=== PATIENT | male | born 1940 | race Caucasian/White ===

== ENCOUNTER → 2020-04-15 | Day surgery (SDC) | payer MEDICARE ==
[2020-04-14 09:28] VITALS: BMI 31.6
[2020-04-15 10:10] VITALS: BP 157/80; PULSE 60; RESP 16; TEMP 98
--- NOTE | 2020-04-15 12:56 | PCN ---
PROCEDURE NOTE DATE OF DICTATION: 04/15/2020 BRIEF HISTORY: Patient is an 79-year-old white male scheduled for an esophageal manometry as a part of evaluation of dysphagia for the last several years duration. Patient states that he has intermittent dysphagia to solids as well as liquids for several years. While he was in [place], it appears that he underwent esophageal surgery, possibly and esophageal myotomy for esophageal achalasia, but no records are available at the time of this dictation. He recently saw Dr. Hopkins at [facility] and because of the ongoing symptoms with dysphagia, he is scheduled for an esophageal manometry to evaluate further. PROCEDURE PERFORMED: High-resolution esophageal manometry. PREOPERATIVE DIAGNOSIS: Dysphagia to liquids and solids of several years duration, status post esophageal surgery (possible Heller myotomy in [place] 4 years ago) PROCEDURE: After informed consent was obtained from the patient, he was brought into the endoscopy unit and he was placed in a supine position. The esophageal manometry catheter was passed from the external nostril and was gently advanced into the esophagus and into the stomach. The study was performed by Endoscopy nurse, Rocio Armendariz. Study results were interpreted using [place] classification. The patient apparently could not tolerate the study for too long, Only liquid swallows were assessed. By the time he was given viscus swallows, the patient had significant cough and the catheter came out and he did not want the study to be continued and hence it was terminated. The following are the study results, which were interpreted using [place] classification. 1. Lower esophageal sphincter data: A mean IRP 0 mmHg. EGJ phenotype type, type 1. 2. .Lower esophageal body, mean DCI 131 mmHg. Peristaltic contractions 0%. Complete liquid transit for 12 follows 0%. 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 MMODL / IJN: [id number] /
== END ==
LOC: ORWHC2ENDO 09:43
PROVIDERS: ATTEND Internal Medicine Gastroenterology
DX: K22.0 Achalasia of cardia (principal); R13.10 Dysphagia, unspecified
CPT/HCPCS: 91010

== ENCOUNTER → 2023-02-21 | Outpatient (CLI) | payer MEDICARE ==
--- NOTE | 2023-02-22 10:10 | NM ---
EXAMINATION TYPE: NM bone scan whole body DATE OF EXAM: 02/21/2023 COMPARISON: MRI lumbar spine 01/28/2023 CLINICAL INDICATION: Male, 82 years old with history of M47.817 spondylosis; Delayed whole-body scanning was performed following the injection of 24.5 mCi Tc 99m MDP. Images acq uired 3 hours post injection. FINDINGS: No abnormal uptake is identified within the appendicular or axial skeleton to suggest metastatic dise ase. No focal increased rate interest uptake within the left iliac bone. There is increased uptake within the bilateral shoulder, sternoclavicular, bilateral knees, bilateral elbows, bilateral wrists, and sacroiliac joints consistent with degenerative changes. Corresponding increased uptake within the lumbar spine related to degenerative changes. No other photopenic areas or areas of increased activity are identified. Physiologic radiotracer activity is demonstrated in the kidneys and bladder. IMPRESSION: No convincing evidence to suggest metastatic disease.
== END | disposition home or self-care (01) ==
LOC: RADNMMAIN 10:11
PROVIDERS: ATTEND Physical Medicine & Rehabilitation
DX: M47.817 Spondylosis without myelopathy or radiculopathy, lumbosacral region (principal); M48.062 Spinal stenosis, lumbar region with neurogenic claudication; E11.9 Type 2 diabetes mellitus without complications; M16.12 Unilateral primary osteoarthritis, left hip; M41.26 Other idiopathic scoliosis, lumbar region; M43.16 Spondylolisthesis, lumbar region
CPT/HCPCS: 78306; A9503

== ENCOUNTER 2023-08-31 19:56 | Inpatient (IN) | payer MEDICARE ==
[2023-08-31 20:01] LABS: Glucose,Whole Blood 84 mg/dL (70-110)
[2023-08-31 20:12] LABS: Basophils % (A) 0 %; Eosinophils % (A) 0 %; HCT 39.1 % (39.0-53.0); HGB 12.8 gm/dL (13.0-17.5); Lymphocytes # (A) 0.8 k/uL (1.0-4.8); Lymphocytes % (A) 8 %; MCH 28.2 pg (25.0-35.0); MCHC 32.7 g/dL (31.0-37.0); Mean Platelet Volume 8.1; Monocytes # (A) 0.7 k/uL (0-1.0); Monocytes % (A) 7 %; Neutrophils # (A) 8.3 k/uL (1.3-7.7); Neutrophils % (A) 82 %; Platelet Count 223 k/uL (150-450); RBC 4.54 m/uL (4.30-5.90); RDW 14.8 % (11.5-15.5); WBC 10.2 k/uL (3.8-10.6)
--- NOTE | 2023-08-31 20:16 | ED ---
General Adult HPI - General Chief complaint: Altered Mental Status Stated complaint: Unresponsive Time Seen by Provider: 08/31/23 20:01 Source: EMS Mode of arrival: EMS Limitations: altered mental status - History of Present Illness Initial comments: Patient brought to the ED by ambulance for evaluation. Per EMS, the patient's called for an ambulance when she was unable to wake the patient up this evening. Per EMS, the patient's found the patient sitting in his chair at about 1700 today, and she thought he was just asleep at that time. It is unclear at this time when the patient was last seen normal, and the patient's is not currently in the ED to provide this information. Patient reportedly has a history of metastatic cancer per EMS, and he recently had colon resection surgery. Per EMS, the patient's blood glucose was initially in the 40s when it was checked, so the patient was given half an ampule of D50 with improvement of his blood glucose to 112, but no improvement in the patient's clinical condition. EMS is unsure if the patient is on any blood thinners. No other history is available at this time. Code Stroke was activated on patient's arrival to the ED. - Related Data Home Medications Medication Instructions Recorded Confirmed Atorvastatin [Lipitor] 80 mg PO DAILY 04/14/20 08/31/23 Donepezil [Aricept] 10 mg PO HS 04/14/20 08/31/23 INSULIN LISPRO (humaLOG) [humaLOG] 12 units SQ BID-W/MEALS 04/14/20 08/31/23 INSULIN LISPRO (humaLOG) [humaLOG] 16 units SQ AC-LUNCH 04/14/20 08/31/23 Insulin Glargine,Hum.rec.anlog 68 units SQ DAILY 04/14/20 08/31/23 [Toujeo Solostar] Losartan Potassium [Cozaar] 100 mg PO HS 04/14/20 08/31/23 Multivitamins, Thera [Multivitamin 1 tab PO DAILY 04/14/20 08/31/23 (formulary)] Oxybutynin Chloride [oxyBUTYnin 10 mg PO DAILY 04/14/20 08/31/23 chloride ER] Sertraline [Zoloft] 50 mg PO DAILY 04/14/20 08/31/23 amLODIPine BESYLATE 10 mg PO DAILY 04/14/20 08/31/23 Allergies Allergy/AdvReac Type Severity Reaction Status Date / Time No Known Allergies Allergy Verified 08/31/23 21:32 Review of Systems ROS Statement: Those systems with pertinent positive or pertinent negative responses have been documented in the HPI. ROS Other: All systems not noted in ROS Statement are negative. Limitations: ROS unobtainable due to patients medical condition Past Medical History Past Medical History: Cancer, Diabetes Mellitus, GERD/Reflux, Hypertension Additional Past Medical History / Comment(s): heart murmur, prostate cancer with radiation History of Any Multi-Drug Resistant Organisms: None Reported Past Surgical History: Hernia Repair, Joint Replacement, Orthopedic Surgery Additional Past Surgical History / Comment(s): esophageal surgery, lt ankle surgery,lt knee replacement Past Anesthesia/Blood Transfusion Reactions: No Reported Reaction Past Psychological History: Anxiety, Depression Smoking Status: Former smoker Past Alcohol Use History: None Reported Past Drug Use History: None Reported General Exam Limitations: altered mental status General appearance: other (GCS = 7; patient opens eyes spontaneously; patient is nonverbal) Head exam: Present: atraumatic, normocephalic Eye exam: Present: normal appearance, PERRL ENT exam: Present: mucous membranes moist Neck exam: Present: other (Trachea is in midline). Absent: meningismus Respiratory exam: Present: normal lung sounds bilaterally. Absent: respiratory distress, wheezes, rales, rhonchi, stridor Cardiovascular Exam: Present: regular rate, normal rhythm, normal heart sounds, other (Normal radial pulses bilaterally) GI/Abdominal exam: Present: soft, other (Open abdominal surgical wound with packing in place). Absent: distended, guarding Extremities exam: Absent: pedal edema Neurological exam: Present: other (GCS = 7; patient opens eyes spontaneously; patient is nonverbal; right hemiparesis; NIH stroke scale score = 29) Skin exam: Present: warm, dry, normal color Course Vital Signs 08/31/23 08/31/23 08/31/23 19:59 20:11 20:46 Temperature 97.6 F 98.0 F Pulse Rate 72 78 68 Respiratory 12 14 18 Rate Blood Pressure 112/71 104/67 126/73 O2 Sat by Pulse 92 L 93 L 96 Oximetry 08/31/23 08/31/23 08/31/23 21:01 21:16 21:26 Temperature 98.0 F 98.2 F Pulse Rate 82 71 72 Respiratory 18 18 18 Rate Blood Pressure 111/66 99/52 126/73 O2 Sat by Pulse 96 97 95 Oximetry 08/31/23 08/31/23 21:31 21:46 Temperature 98.2 F 98.3 F Pulse Rate 67 67 Respiratory 18 18 Rate Blood Pressure 112/70 107/68 O2 Sat by Pulse 97 97 Oximetry - Reevaluation(s) Reevaluation #1: 08/31/23 20:20 Case, H&P and code stroke activation were discussed with Dr. Mims (neurointesivist). He states that he does not feel that the patient is a tenecteplase candidate, and he recommends medical management even if the patient's imaging studies demonstrate a vascular occlusion. He has no further recommendations at this time. 08/31/23 20:27 Patient's is now in the ED at bedside with the patient. She tells me that she last saw the patient normal at about 3 or 4 PM today, but she is unsure of the exact time. She states that he was complaining of "not feeling well" at that time, which is not abnormal for him since having his colon resection surgery. She states that the patient does have metastatic cancer (she is uncertain of what the primary cancer is), and he is scheduled to see a cancer doctor next week to be evaluated for chemotherapy. She confirms that the patient is full code. 08/31/23 20:46 Patient's blood glucose has dropped to the 40s again. ED RN to give the patient 1 ampoule of D50 at this time. 08/31/23 21:26 Patient's clinical status has now significantly improved. Patient is now verbal and A&O x 3. Patient no longer has right hemiparesis, and he is moving all 4 extremities spontaneously. Patient localizes to pain in all 4 extremities. Patient is able to tell me his name and what month it is. Patient is answering questions appropriately. Patient's states that the patient is now back to his baseline mental status. 08/31/23 22:12 Case, H&P, test results, ED management thus far and my discussion with Dr. Mims as above were discussed with Dr. Rosen. He accepts hospital admission. He agrees with neurology consultation. He has no further recommendations at this time. EKG Findings - EKG Comments: EKG Findings:: ED physician interpretation (interpreted by me): Ventricular paced rhythm, ventricular rate of 75 bpm, QRS duration of 154 ms Medical Decision Making - Medical Decision Making Was pt. sent in by a medical professional or institution (, PA, BLOW DOWN OPERATOR, urgent care, hospital, or residential...) When possible be specific @ -No Did you speak to anyone other than the patient for history (EMS, parent, family, police, friend...)? What history was obtained from this source @ -History was also obtained from EMS, as well as the patient's . Did you review nursing and triage notes (agree or disagree)? Why? @ -I reviewed and agree with nursing and triage notes Were old charts reviewed (outside hosp., previous admission, EMS record, old EKG, old radiological studies, urgent care reports/EKG's, residential records)? Report findings @ -No old charts were reviewed Differential Diagnosis (chest pain, altered mental status, abdominal pain women, abdominal pain men, vaginal bleeding, weakness, fever, dyspnea, syncope, headache, dizziness, GI bleed, back pain, seizure, CVA, palpatations, mental health, musculoskeletal)? @ -Differential Altered Mental Status: Hypoglycemia, DKA, hypercapnia, ETOH, overdose, trauma, intracranial mass/malignancy, HTN encephalopathy, infection, encephalitis, psychosis, intracranial hemorrhage, hepatic encephalopathy, meningitis, CVA, TIA, this is not meant to be an all-inclusive list EKG interpreted by me (3pts min.). @ -As above X-rays interpreted by me (1pt min.). @ -Chest x-ray was reviewed myself and shows no acute cardiopulmonary process. I agree with the radiologist's interpretation as above. CT interpreted by me (1pt min.). @ -Noncontrast head CT and CTA head/neck were reviewed myself and showed no acute intracranial abnormality or vascular occlusion. I agree with the radiologist's interpretations as above. U/S interpreted by me (1pt. min.). @ -None done What testing was considered but not performed or refused? (CT, X-rays, U/S, labs)? Why? @ -None What meds were considered but not given or refused? Why? @ -Tenecteplase was considered, but not given after speaking with the neurointerventionalist, as well as given the patient's resolution of symptoms. Did you discuss the management of the patient with other professionals (professionals i.e. , PA, BLOW DOWN OPERATOR, lab, RT, psych nurse, oncology social work, wellness spa manager, teacher, chief supply chain officer, case assistant)? Give summary @ -As above. Was smoking cessation discussed for >3mins.? @ -No Was critical care preformed (if so, how long)? @ -Yes, for 60 minutes. Were there social determinants of health that impacted care today? How? (Homelessness, low income, unemployed, alcoholism, drug addiction, tra nsportation, low edu. Level, literacy, decrease access to med. care, [facility], rehab)? @ -No Was there de-escalation of care discussed even if they declined (Discuss DNR or withdrawal of care, Hospice)? DNR status @ -No What co-morbidities impacted this encounter? (DM, HTN, Smoking, COPD, CAD, Cancer, CVA, ARF, Chemo, Hep., AIDS, mental health diagnosis, sleep apnea, morbid obesity)? @ -Metastatic malignancy Was patient admitted / discharged? Hospital course, mention meds given and route, prescriptions, significant lab abnormalities, going to OR and other pertinent info. @ -Patient presented to the ED with altered mental status and right hemiparesis. EMS reported hypoglycemia, but they also reported no improvement in the patient's condition after IV D50 was given and the patient's blood g lucose returned to normal. Patient was noted to be hypoglycemic again in the ED, but in the ED, his condition improved after administration of IV D50. Patient's neuroimaging studies are all negative. It is possible that the patient's symptoms may have been secondary to hypoglycemia, but also possible that the patient may have had a TIA or another etiology of his altered mental status/symptoms. Patient's neurological deficits and altered mental status have now resolved, and the patient has returned to his baseline mental status. Will admit the patient to the hospital for continued blood glucose monitoring, symptom monitoring and neurology consultation. Patient has been started on a D5 normal saline IV drip. Patient has also been treated with electrolyte repletion for his hypokalemia and hypomagnesemia. Dr. Rosen has accepted hospital admission. Patient and are aware the patient's test results, and they agree with hospital admission at this time. Undiagnosed new problem with uncertain prognosis? @ -No Drug Therapy requiring intensive monitoring for toxicity (Heparin, Nitro, Insulin, Cardizem)? @ -No Were any procedures done? @ -No Diagnosis/symptom? @ -Hypoglycemia Acute, or Chronic, or Acute on Chronic? @ -Default Uncomplicated (without systemic symptoms) or Complicated (systemic symptoms)? @ -Default Side effects of treatment? @ -No Exacerbation, Progression, or Severe Exacerbation? @ -No Poses a threat to life or bodily function? How? (Chest pain, [place], [place], pneumonia, PE, COPD, DKA, ARF, appy, cholecystitis, CVA, Diverticulitis, Homicidal, Suicidal, threat to staff... and all critical care pts) @ -Yes, possibly. Diagnosis/symptom? @ -Transient altered mental status and right hemiparesis Acute, or Chronic, or Acute on Chronic? @ -Acute Uncomplicated (without systemic symptoms) or Complicated (systemic symptoms)? @ -Default Side effects of treatment? @ -None Exacerbation, Progression, or Severe Exacerbation] @ -No Poses a threat to life or bodily function? @ -No Diagnosis/symptom? @ -Hypokalemia Acute, or Chronic, or Acute on Chronic? @ -Default Uncomplicated (without systemic symptoms) or Complicated (systemic symptoms)? @ -Default Side effects of treatment? @ -None Exacerbation, Progression, or Severe Exacerbation] @ -No Poses a threat to life or bodily function? @ -No Diagnosis/symptom? @ -Hypomagnesemia Acute, or Chronic, or Acute on Chronic? @ -Default Uncomplicated (without systemic symptoms) or Complicated (systemic symptoms)? @ -Default Side effects of treatment? @ -None Exacerbation, Progression, or Severe Exacerbation] @ -No Poses a threat to life or bodily function? @ -No - Lab Data Result diagrams: 08/31/23 20:07 08/31/23 20:07 Lab Results 08/31/23 08/31/23 08/31/23 Range/Units 19:59 20:07 20:07 WBC 10.2 (3.8-10.6) k/uL RBC 4.54 (4.30-5.90) m/uL Hgb 12.8 L (13.0-17.5) gm/dL Hct 39.1 (39.0-53.0) % MCV 86.0 (80.0-100.0) fL MCH 28.2 (25.0-35.0) pg MCHC 32.7 (31.0-37.0) g/dL RDW 14.8 (11.5-15.5) % Plt Count 223 (150-450) k/uL MPV 8.1 Neutrophils % 82 % Lymphocytes % 8 % Monocytes % 7 % Eosinophils % 0 % Basophils % 0 % Neutrophils # 8.3 H (1.3-7.7) k/uL Lymphocytes # 0.8 L (1.0-4.8) k/uL Monocytes # 0.7 (0-1.0) k/uL Eosinophils # 0.0 (0-0.7) k/uL Basophils # 0.0 (0-0.2) k/uL PT 15.9 H (10.0-12.5) sec INR 1.5 H (<1.2) APTT 22.1 (22.0-30.0) sec Sodium (137-145) mmol/L Potassium (3.5-5.1) mmol/L Chloride (98-107) mmol/L Carbon Dioxide (22-30) mmol/L Anion Gap mmol/L BUN (9-20) mg/dL Creatinine (0.66-1.25) mg/dL Est GFR (CKD-EPI)AfAm (>60 ml/min/1.73 sqM) Est GFR (CKD-EPI)NonAf (>60 ml/min/1.73 sqM) Glucose (74-99) mg/dL POC Glucose (mg/dL) 84 (70-110) mg/dL POC Glu Office Supervisor ID Jame, Monica Calcium (8.4-10.2) mg/dL Magnesium (1.6-2.3) mg/dL Total Bilirubin (0.2-1.3) mg/dL AST (17-59) U/L ALT (4-49) U/L Alkaline Phosphatase (38-126) U/L Ammonia (<30) umol/L Creatine Kinase (55-170) U/L Troponin I (0.000-0.034) ng/mL Total Protein (6.3-8.2) g/dL Albumin (3.5-5.0) g/dL Serum Alcohol mg/dL 08/31/23 08/31/2324 Range/Units 20:07 20:07 20:44 WBC (3.8-10.6) k/uL RBC (4.30-5.90) m/uL Hgb (13.0-17.5) gm/dL Hct (39.0-53.0) % MCV (80.0-100.0) fL MCH (25.0-35.0) pg MCHC (31.0-37.0) g/dL RDW (11.5-15.5) % Plt Count (150-450) k/uL MPV Neutrophils % % Lymphocytes % % Monocytes % % Eosinophils % % Basophils % % Neutrophils # (1.3-7.7) k/uL Lymphocytes # (1.0-4.8) k/uL Monocytes # (0-1.0) k/uL Eosinophils # (0-0.7) k/uL Basophils # (0-0.2) k/uL PT (10.0-12.5) sec INR (<1.2) APTT (22.0-30.0) sec Sodium 139 (137-145) mmol/L Potassium 2.3 L* (3.5-5.1) mmol/L Chloride 109 H (98-107) mmol/L Carbon Dioxide 22 (22-30) mmol/L Anion Gap 8 mmol/L BUN 17 (9-20) mg/dL Creatinine 0.71 (0.66-1.25) mg/dL Est GFR (CKD-EPI)AfAm >90 (>60 ml/min/1.73 sqM) Est GFR (CKD-EPI)NonAf 87 (>60 ml/min/1.73 sqM) Glucose 93 (74-99) mg/dL POC Glucose (mg/dL) 42 L (70-110) mg/dL POC Glu Office Supervisor ID Jame, Monica Calcium 8.7 (8.4-10.2) mg/dL Magnesium (1.6-2.3) mg/dL Total Bilirubin 0.6 (0.2-1.3) mg/dL AST 20 (17-59) U/L ALT 14 (4-49) U/L Alkaline Phosphatase 128 H (38-126) U/L Ammonia (<30) umol/L Creatine Kinase 29 L (55-170) U/L Troponin I 0.034 (0.000-0.034) ng/mL Total Protein 6.1 L (6.3-8.2) g/dL Albumin 2.8 L (3.5-5.0) g/dL Serum Alcohol <10 mg/dL 08/31/23 08/31/23 08/31/23 Range/Units 20:57 21:11 21:23 WBC (3.8-10.6) k/uL RBC (4.30-5.90) m/uL Hgb (13.0-17.5) gm/dL Hct (39.0-53.0) % MCV (80.0-100.0) fL MCH (25.0-35.0) pg MCHC (31.0-37.0) g/dL RDW (11.5-15.5) % Plt Count (150-450) k/uL MPV Neutrophils % % Lymphocytes % % Monocytes % % Eosinophils % % Basophils % % Neutrophils # (1.3-7.7) k/uL Lymphocytes # (1.0-4.8) k/uL Monocytes # (0-1.0) k/uL Eosinophils # (0-0.7) k/uL Basophils # (0-0.2) k/uL PT (10.0-12.5) sec INR (<1.2) APTT (22.0-30.0) sec Sodium (137-145) mmol/L Potassium (3.5-5.1) mmol/L Chloride (98-107) mmol/L Carbon Dioxide (22-30) mmol/L Anion Gap mmol/L BUN (9-20) mg/dL Creatinine (0.66-1.25) mg/dL Est GFR (CKD-EPI)AfAm (>60 ml/min/1.73 sqM) Est GFR (CKD-EPI)NonAf (>60 ml/min/1.73 sqM) Glucose (74-99) mg/dL POC Glucose (mg/dL) 129 H (70-110) mg/dL POC Glu Office Supervisor ID Jame, Monica Calcium (8.4-10.2) mg/dL Magnesium 1.3 L (1.6-2.3) mg/dL Total Bilirubin (0.2-1.3) mg/dL AST (17-59) U/L ALT (4-49) U/L Alkaline Phosphatase (38-126) U/L Ammonia <9 (<30) umol/L Creatine Kinase (55-170) U/L Troponin I (0.000-0.034) ng/mL Total Protein (6.3-8.2) g/dL Albumin (3.5-5.0) g/dL Serum Alcohol mg/dL 08/31/23 08/31/23 Range/Units 22:11 22:12 WBC (3.8-10.6) k/uL RBC (4.30-5.90) m/uL Hgb (13.0-17.5) gm/dL Hct (39.0-53.0) % MCV (80.0-100.0) fL MCH (25.0-35.0) pg MCHC (31.0-37.0) g/dL RDW (11.5-15.5) % Plt Count (150-450) k/uL MPV Neutrophils % % Lymphocytes % % Monocytes % % Eosinophils % % Basophils % % Neutrophils # (1.3-7.7) k/uL Lymphocytes # (1.0-4.8) k/uL Monocytes # (0-1.0) k/uL Eosinophils # (0-0.7) k/uL Basophils # (0-0.2) k/uL PT (10.0-12.5) sec INR (<1.2) APTT (22.0-30.0) sec Sodium (137-145) mmol/L Potassium (3.5-5.1) mmol/L Chloride (98-107) mmol/L Carbon Dioxide (22-30) mmol/L Anion Gap mmol/L BUN (9-20) mg/dL Creatinine (0.66-1.25) mg/dL Est GFR (CKD-EPI)AfAm (>60 ml/min/1.73 sqM) Est GFR (CKD-EPI)NonAf (>60 ml/min/1.73 sqM) Glucose (74-99) mg/dL POC Glucose (mg/dL) 125 H 103 (70-110) mg/dL POC Glu Office Supervisor ID Jame, Monica Jame, Monica Calcium (8.4-10.2) mg/dL Magnesium (1.6-2.3) mg/dL Total Bilirubin (0.2-1.3) mg/dL AST (17-59) U/L ALT (4-49) U/L Alkaline Phosphatase (38-126) U/L Ammonia (<30) umol/L Creatine Kinase (55-170) U/L Troponin I (0.000-0.034) ng/mL Total Protein (6.3-8.2) g/dL Albumin (3.5-5.0) g/dL Serum Alcohol mg/dL - Radiology Data Noncontrast head CT: 1. No evidence of acute intracranial hemorrhage. 2. No CT evidence of acute territorial infarct. 3. Moderate atrophy and chronic microvascular ischemic changes. CTA neck: 1. No dissection, hemodynamically significant stenosis, or pseudoaneurysm detected in the carotid or vertebral arteries in the neck. 2. Mild atherosclerotic calcifications at the carotid bifurcations. 3. Moderate atherosclerotic calcification along the aortic arch without evidence of dissection. Partially seen ascending aorta appears dilated up to 4.1 cm. CTA head: 1. No intracranial large vessel occlusion, significant stenosis, or sizable aneurysm detected in the limits of the CTA. 2. Mild atherosclerotic disease. Chest x-ray: Left chest dual-lead pacemaker redemonstrated, the main unit appears slightly rotated compared to its previous position however the lead tips do not appear significantly changed in position. Otherwise similar exam findings, without evidence of acute cardiopulmonary disease. Critical Care Time Critical Care Time: Yes Total Critical Care Time: 60 Disposition Clinical Impression: Altered mental status, Hypokalemia, Hypoglycemia, Hypomagnesemia Disposition: ADMITTED IP TO THIS [facility] Condition: Stable Is patient prescribed a controlled substance at d/c from ED?: No Referrals: Bonnie Barraza MD [Primary Care Provider] - 1-2 days Time of Disposition: 22:12
[2023-08-31 20:22] LABS: ALT 14 U/L (4-49); AST 20 U/L (17-59); African American GFR (CKD) >90 (>60 ml/min/1.73 sqM); Albumin 2.8 g/dL (3.5-5.0); Alcohol <10 mg/dL; Alkaline Phosphatase 128 U/L (38-126); Anion Gap 8 mmol/L; Blood Urea Nitrogen 17 mg/dL (9-20); Calcium 8.7 mg/dL (8.4-10.2); Carbon Dioxide 22 mmol/L (22-30); Chloride 109 mmol/L (98-107); Creatine Kinase 29 U/L (55-170); Glucose 93 mg/dL (74-99); Non-African American GFR(CKD) 87 (>60 ml/min/1.73 sqM); Sodium 139 mmol/L (137-145); Total Bilirubin 0.6 mg/dL (0.2-1.3); Total Protein 6.1 g/dL (6.3-8.2)
[2023-08-31 20:25] LABS: Potassium 2.3 mmol/L (3.5-5.1)
[2023-08-31 20:28] LABS: INR 1.5 (<1.2); Partial Thromboplastin Time 22.1 sec (22.0-30.0); Prothrombin Time 15.9 sec (10.0-12.5)
--- NOTE | 2023-08-31 20:43 | CT ---
EXAMINATION TYPE: CODE STROKE: CT brain wo contr CT DLP: 1292.6 mGycm, Automated exposure control for dose reduction was used. DATE OF EXAM: 08/31/2023 8:27 PM COMPARISON: None. CLINICAL INDICATION:Male, 82 years old with history of Neuro deficit, acute, stroke suspected, Neuro deficit, acute, stroke suspected. TECHNIQUE: Brain: Axial CT images of the brain were obtained with coronal and sagittal reformats created and rev iewed. Contrast used: None. Oral contrast used: None. FINDINGS: Slight limitation by motion. Extra-axial spaces: No abnormal extra-axial fluid collections. Ventricular system: Ventricles appear dilated in proportion to the degree of cerebral atrophy. Cerebral parenchyma: No increased attenuation to suggest acute intraparenchymal hemorrhage. The gra y-white matter interface appears maintained, without evidence to suggest acute territorial infarct. Moderate generalized brain atrophy. Scattered hypoattenuating areas are seen within the cerebral whi te matter, nonspecific but most often seen with chronic microvascular ischemic changes; moderate in d egree. Cerebellum: No acute abnormality. Mass effect: No evidence of mass effect or midline shift. Intracranial vasculature: Atherosclerotic calcifications of the larger arteries near the skull base. Soft tissues: No acute or concerning abnormality. Visualized orbits: Orbital contents appear grossly intact. Calvarium/osseous structures: No evidence of calvarial fracture. Paranasal sinuses and mastoid air cells: Appear clear. MRI is more sensitive for detecting acute processes such as infarct, and may be considered if clinica lly warranted. IMPRESSION: 1. No evidence of acute intracranial hemorrhage. 2. No CT evidence of acute territorial infarct. 3. Moderate atrophy and chronic microvascular ischemic changes.
[2023-08-31] MEDS: POTASSIUM CHLORIDE 40 MEQ in WATER FOR INJECTION 1 100ML.BAG IVPB STA (20:44)
[2023-08-31] MEDS: DEXTROSE 50% SYRINGE 50 ML IVP STA (20:48)
[2023-08-31 20:50] LABS: Glucose,Whole Blood 42 mg/dL (70-110)
[2023-08-31] MEDS: DEXTROSE 5%-0.9% NACL 1,000 ML IV SCH (21:18)
[2023-08-31 21:25] LABS: Glucose,Whole Blood 129 mg/dL (70-110)
--- NOTE | 2023-08-31 21:38 | CT ---
EXAMINATION TYPE: CT angio head neck DATE OF EXAM: 08/31/2023 8:50 PM COMPARISON: Same day noncontrast head CT. CLINICAL INDICATION:Male, 82 years old with history of Neuro deficit, acute, stroke suspected; PHH, C ode stroke TECHNIQUE: Axially acquired helical CT angiogram of the head and neck was obtained with contrast. Axi al images are supplemented with 3D reconstructions [facility] NASCET criteria used. Contrast used: 65ml mL of Isovue 370 with IV Contrast, Oral contrast used: None. CT DLP: 659 mGycm, Automated exposure control for dose reduction was used. FINDINGS: CTA Neck: A three-vessel arch is shown. Visualized ascending aorta appears dilated up to 4.1 cm. Moderate ather osclerotic calcifications along the arch and proximal branch vessels without significant stenosis see n. Proximal branch vessels are tortuous. The visualized descending aorta is tortuous with maximum est imated diameter 3.6 cm. No dissection flap is seen. Right carotid system: The common carotid is patent. Mostly calcified plaque at the bifurcation with n o hemodynamically significant stenosis seen. ECA and ICA are patent. No evidence of dissection. Left carotid system: The common carotid is patent. Mostly calcified plaque at the bifurcation and pro ximal ICA with no hemodynamically significant stenosis seen. ECA and ICA are patent. No evidence of d issection. Vertebral arteries: There is mild atherosclerotic plaque at the origins of the vertebral arteries wit hout significant stenosis seen. The vertebrals are then otherwise patent to the skull base. The vertebral arteries are codominant. Other: Visualized neck soft tissues show no acute concerning abnormality. Cervical spine shows mild/m oderate degenerative changes without evidence of acute pathology. Imaged portions of the upper chest shows no acute infiltrate or pneumothorax in the lung apices. Visualized trachea and left main bronch us appear patent. Partially seen on the right is soft tissue density which may be debris within the b ronchus intermedius. Mild bronchial wall thickening can be seen with bronchitis. Left chest dual-lead pacemaker device with the lead tips beyond the field of view. CTA Head: There are some calcifications of the cavernous portions of the ICAs without significant stenosis. Supraclinoid ICAs, bifurcations, ACAs, MCAs appear patent. Anterior communicating artery is not defin itely seen. Intracranial vessels are slightly irregular likely reflecting mild atherosclerotic diseas e. The intracranial vertebral arteries enhance normally. Small calcification in the right V4 segment wit hout significant stenosis. Basilar artery is patent and unremarkable. Normal basilar bifurcation with out evidence of aneurysm. Visualized proximal ice cream server are patent. A right posterior communicating artery is not definitely seen. A left posterior communicating artery is not definitely seen. No intracranial large vessel occlusion, hemodynamically significant stenosis, aneurysm, dissection, o r arteriovenous malformation is shown. The dural venous sinuses appear grossly patent without evidence of thrombosis. Other: Please refer to same-day CT head report for further description of findings. IMPRESSION: CTA neck: 1. No dissection, hemodynamically significant stenosis, or pseudoaneurysm detected in the carotid or vertebral arteries in the neck. 2. Mild atherosclerotic calcifications at the carotid bifurcations. 3. Moderate atherosclerotic calcification along the aortic arch without evidence of dissection. Part ially seen ascending aorta appears dilated up to 4.1 cm. CTA head: 1. No intracranial large vessel occlusion, significant stenosis, or sizable aneurysm detected in the limits of CTA. 2. Mild atherosclerotic disease.
[2023-08-31] MEDS: MAGNESIUM SULFATE-D5W PMX 1 GM in DEXTROSE/WATER 1 100ML.BAG IVPB ONE (21:46)
--- NOTE | 2023-08-31 22:03 | XR ---
EXAM: XR chest 1V portable CLINICAL INDICATION:Male, 82 years old with history of altered mental status; [facility] COMPARISON: 04/12/2023 TECHNIQUE: Chest single view. FINDINGS: Lines/tubes/devices: Left chest dual-lead pacemaker redemonstrated, the main unit appears slightly ro tated counterclockwise from its previous position however the lead tips do not appear significantly c hanged in position, terminating over the RA and RV. EKG leads overlie the chest. Cardiomediastinum: CM silhouette is stable. Heart appears mildly enlarged. Tortuosity, ectasia and calcification of the aorta. Vasculature: No increased pulmonary vasculature. Lungs/pleura: Mildly coarsened interstitial lung markings again seen, likely chronic changes. No airspace consolida tion, significant pleural effusion, or pneumothorax is seen. Trace left pleural effusion versus chron ic change, similar to before. Bones/soft tissues: Bony thorax appears grossly intact as seen. Degenerative changes of the spine and shoulders. IMPRESSION: * Left chest dual-lead pacemaker redemonstrated, the main unit appears slightly rotated compared to its previous position however the lead tips do not appear significantly changed in position. * Otherwise similar exam findings, without evidence of acute cardiopulmonary disease.
[2023-08-31] MEDS: ASPIRIN 81 MG PO STA (22:08)
[2023-08-31 22:14] LABS: Glucose,Whole Blood 125 mg/dL (70-110)
[2023-08-31 22:14] LABS: Glucose,Whole Blood 103 mg/dL (70-110)
[2023-09-01] LABS: Glucose,Whole Blood 119 mg/dL (70-110)
[2023-09-01] MEDS: POTASSIUM CHLORIDE ER 20 MEQ TAB.ER PO STA (01:17)
--- NOTE | 2023-09-01 01:34 | P.HPIM ---
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 The history is supplemented by the patient's and daughter at the bedside. The notes the patient had said he felt somewhat not well and went to take a nap at around 3:30 PM earlier today. When she attempted to wake him at around 5 PM, he was unresponsive, at which time she activated EMS. Upon arrival, EMS found the patient to be hypoglycemic with blood glucose around in the 40s. He was given half an ampule of D50 with subsequent blood glucose 112 without significant improvement in his mental status. Upon arrival to the ED, code stroke was activated due to significant right-sided hemiparesis. Brain imaging including CT head and neck angiogram and CT brain were unremarkable. The patient's mentation and weakness gradually improved, although the and daughter report that he is still not fully at his baseline at the time of interview. He was somewhat sleepy but oriented x 4 during my evaluation. He reports feeling somewhat fatigued but had no specific complaints. He denied experiencing weakness, numbness, tingling, visual disturbances, or headache. Denies chest pain, shortness of breath, nausea, vomiting. As per the family, the patient has had a significantly reduced oral intake ever since his surgery in [place], but continues to take the same dose of insulin as prior. He also seldom checks his blood sugar. Of note, the patient is scheduled to see Dr. Childress, pending biopsy results from [place]. He is following with wound care clinic at [facility] for an abdominal midline wound VAC. EKG revealed V paced rhythm at 75 bpm in the emergency room. Laboratory evaluation was remarkable for potassium of 2.3, magnesium 1.3, alk phos 128, and albumin 2.8 with serum alcohol less than 10. ED documentation reviewed and case discussed with ED provider. Review of systems: Pertinent positives and negatives as discussed in HPI, a complete review of systems was performed and all other systems are negative. Physical examination: Vital signs reviewed General: non toxic, no distress, appears at stated age, normal weight Derm: no unusual rashes/lesions, warm Head: atraumatic, normocephalic, symmetric Eyes: EOMI, no lid lag, anicteric sclera, pupils equal round reactive to light ENT: Nose and ears atraumatic Neck: No cervical lymphadenopathy, trachea midline, supple Mouth: no lip lesion, mucus membranes moist Cardiovascular: S1S2 reg, no murmur, positive dorsalis pedis pulse bilateral, no edema Lungs: CTA bilateral, no rhonchi, no rales, no accessory muscle use Abdominal: soft, nontender to palpation, no guarding, midline wound VAC in place without surrounding tenderness or erythema Ext: muscle strength 5 out of 5 in all 4 extremities grossly, no gross muscle atrophy, no contractures, Neuro: CN II-XI grossly intact, no gross focal neuro deficits Psych: Somewhat sleepy, oriented to person, place, time, appropriate affect Assessment: Altered mental status, likely due to hypoglycemia in setting of poor oral intake Right-sided hemiparesis, unable to rule out TIA Hypokalemia and hypomagnesemia Chronic conditions: Type II DM, hypertension, hyperlipidemia Imaging: CT angiogram head and neck and CT brain were unremarkable. EKG revealed V paced rhythm at 75 bpm as reviewed by me. Data Review: Laboratory evaluation was remarkable for potassium of 2.3, magnesium 1.3, alk phos 128, and albumin 2.8 with serum alcohol less than 10. Plan: Hold off on home insulin therapy at this time Continue with D5 NS at 75 mL/h Neurology consulted Neurochecks Replace magnesium and potassium and monitor for resolution Continue with remaining home medications DVT prophylaxis: Lovenox subcu The patient is admitted with an anticipated greater than 2 midnight stay for evaluation of altered mental status CODE STATUS: Full Code Discussed with: Patient, , daughter Anticipated discharge place: Home Past Medical History Past Medical History: Cancer, Diabetes Mellitus, GERD/Reflux, Hypertension Additional Past Medical History / Comment(s): heart murmur, prostate cancer with radiation History of Any Multi-Drug Resistant Organisms: None Reported Past Surgical History: Hernia Repair, Joint Replacement, Orthopedic Surgery Additional Past Surgical History / Comment(s): esophageal surgery, lt ankle surgery,lt knee replacement Past Anesthesia/Blood Transfusion Reactions: No Reported Reaction Past Psychological History: Anxiety, Depression Smoking Status: Former smoker Past Alcohol Use History: None Reported Additional Past Alcohol Use History / Comment(s): smoker for 20 years 1-2 ppd quit 1979 Past Drug Use History: None Reported - Past Family History Mother Family Medical History: Hypertension Medications and Allergies Home Medications Medication Instructions Recorded Confirmed Type Atorvastatin [Lipitor] 80 mg PO DAILY 04/14/20 08/31/23 History Donepezil [Aricept] 10 mg PO HS 04/14/20 08/31/23 History INSULIN LISPRO (humaLOG) [humaLOG] 12 units SQ BID-W/MEALS 04/14/20 08/31/23 History INSULIN LISPRO (humaLOG) [humaLOG] 16 units SQ AC-LUNCH 04/14/20 08/31/23 History Insulin Glargine,Hum.rec.anlog 68 units SQ DAILY 04/14/20 08/31/23 History [Toujeo Solostar] Losartan Potassium [Cozaar] 100 mg PO HS 04/14/20 08/31/23 History Multivitamins, Thera [Multivitamin 1 tab PO DAILY 04/14/20 08/31/23 History (formulary)] Oxybutynin Chloride [oxyBUTYnin 10 mg PO DAILY 04/14/20 08/31/23 History chloride ER] Sertraline [Zoloft] 50 mg PO DAILY 04/14/20 08/31/23 History amLODIPine BESYLATE 10 mg PO DAILY 04/14/20 08/31/23 History Allergies Allergy/AdvReac Type Severity Reaction Status Date / Time No Known Allergies Allergy Verified 08/31/23 21:32 Physical Exam Vitals: Vital Signs Temp Pulse Pulse Resp BP BP Pulse Ox 08/31/23 23:52 62 18 130/69 99 08/31/23 22:16 98.3 F 65 18 129/76 97 08/31/23 21:46 98.3 F 67 18 107/68 97 08/31/23 21:31 98.2 F 67 18 112/70 97 08/31/23 21:26 72 18 126/73 95 08/31/23 21:16 98.2 F 71 18 99/52 97 08/31/23 21:01 98.0 F 82 18 111/66 96 08/31/23 20:46 98.0 F 68 18 126/73 96 08/31/23 20:11 78 14 104/67 93 L 08/31/23 19:59 97.6 F 72 12 112/71 92 L Intake and Output 08/31/23 08/31/23 09/01/23 14:59 22:59 06:59 Other: Weight 84.867 kg 84.867 kg Results CBC & Chem 7: 08/31/23 20:07 08/31/23 20:07 Labs: Abnormal Lab Results - Last 24 Hours (Table) 08/31/23 08/31/23 08/31/23 Range/Units 20:07 20:07 20:07 Hgb 12.8 L (13.0-17.5) gm/dL Neutrophils # 8.3 H (1.3-7.7) k/uL Lymphocytes # 0.8 L (1.0-4.8) k/uL PT 15.9 H (10.0-12.5) sec INR 1.5 H (<1.2) Potassium 2.3 L* (3.5-5.1) mmol/L Chloride 109 H (98-107) mmol/L POC Glucose (mg/dL) (70-110) mg/dL Magnesium (1.6-2.3) mg/dL Alkaline Phosphatase 128 H (38-126) U/L Creatine Kinase 29 L (55-170) U/L Total Protein 6.1 L (6.3-8.2) g/dL Albumin 2.8 L (3.5-5.0) g/dL 08/31/23 08/31/23 08/31/23 Range/Units 20:44 20:57 21:23 Hgb (13.0-17.5) gm/dL Neutrophils # (1.3-7.7) k/uL Lymphocytes # (1.0-4.8) k/uL PT (10.0-12.5) sec INR (<1.2) Potassium (3.5-5.1) mmol/L Chloride (98-107) mmol/L POC Glucose (mg/dL) 42 L 129 H (70-110) mg/dL Magnesium 1.3 L (1.6-2.3) mg/dL Alkaline Phosphatase (38-126) U/L Creatine Kinase (55-170) U/L Total Protein (6.3-8.2) g/dL Albumin (3.5-5.0) g/dL 08/31/23 08/31/23 Range/Units 22:11 23:59 Hgb (13.0-17.5) gm/dL Neutrophils # (1.3-7.7) k/uL Lymphocytes # (1.0-4.8) k/uL PT (10.0-12.5) sec INR (<1.2) Potassium (3.5-5.1) mmol/L Chloride (98-107) mmol/L POC Glucose (mg/dL) 125 H 119 H (70-110) mg/dL Magnesium (1.6-2.3) mg/dL Alkaline Phosphatase (38-126) U/L Creatine Kinase (55-170) U/L Total Protein (6.3-8.2) g/dL Albumin (3.5-5.0) g/dL Thrombosis Risk Factor Assmnt - Choose All That Apply Each Risk Factor Represents 3 Points: Age 75 years or older Thrombosis Risk Factor Assessment Total Risk Factor Score: 3 Thrombosis Risk Factor Assessment Level: Moderate Risk
[2023-09-01] MEDS: MAGNESIUM SULFATE-D5W PMX 1 GM in DEXTROSE/WATER 1 100ML.BAG IVPB ONE (01:54)
[2023-09-01] MEDS: DEXTROSE 50% SYRINGE 50 ML IVP STA ×2 (01:55→10:22)
[2023-09-01 06:16] LABS: Glucose,Whole Blood 111 mg/dL (70-110)
[2023-09-01 06:51] LABS: Appearance,Urine Clear (Clear); Bilirubin,Urine Negative (Negative); Blood,Urine Negative (Negative); Color,Urine Light Yellow; Glucose,Urine (UA) Negative (Negative); Ketones,Urine Negative (Negative); Leukocyte Esterase,Urine Negative (Negative); Nitrite,Urine Negative (Negative); PH, Urine 5.5 (5.0-8.0); Protein,Urine Negative (Negative); Urobilinogen,Urine <2.0 mg/dL (<2.0)
[2023-09-01 07:32] LABS: Amphetamine Screen,Urine Not Detected (NotDetected); Barbiturate Screen,Urine Not Detected (NotDetected); Benzodiazepines Screen,Urine Not Detected (NotDetected); Cocaine Screen,Urine Not Detected (NotDetected); Methadone Screen, Urine Not Detected (NotDetected); Opiate Screen,Urine Not Detected (NotDetected); Oxycodone Screen, Urine Not Detected (NotDetected); Phencyclidine Screen,Urine Not Detected (NotDetected); Tricyclic Antidepressant,Urine Not Detected (NotDetected); Urn Cannabinoid Scrn Not Detected (NotDetected)
[2023-09-01 07:59] LABS: Glucose,Whole Blood 76 mg/dL (70-110)
[2023-09-01 09:58] LABS: Glucose,Whole Blood 43 mg/dL (70-110)
[2023-09-01] MEDS: amLODIPine 10 MG TAB PO SCH (10:14)
[2023-09-01] MEDS: ATORVASTATIN 80 MG TAB PO SCH (10:15)
[2023-09-01] MEDS: OXYBUTYNIN 10 MG TAB.ER.24 PO SCH (10:15)
[2023-09-01] MEDS: SERTRALINE 50 MG TAB PO SCH (10:15)
[2023-09-01] MEDS: MULTIVITAMINS, THERA 1 EACH TAB PO SCH (10:15)
[2023-09-01 10:16] LABS: Glucose,Whole Blood 43 mg/dL (70-110)
[2023-09-01 10:41] LABS: Glucose,Whole Blood 105 mg/dL (70-110)
[2023-09-01 11:49] LABS: Glucose,Whole Blood 99 mg/dL (70-110)
[2023-09-01] MEDS ORDERED: DEXTROSE 50% SYRINGE 50 ML IVP PRN ×2 (11:57)
--- NOTE | 2023-09-01 12:18 | P.CNNES ---
History of Present Illness Consult date: 09/01/23 Requesting physician: Dev Vázquez Reason for Consult: transient altered mental status and right hemiparesis History of Present Illness: Patient is a 82-year-old left-handed male with history of hypertension, diabetes, hyperlipidemia, ex tobacco use, came to the hospital by ambulance yesterday at 7:56 PM for episode of unresponsiveness and hypoglycemia. Patient states that his sickness started in early part of July 2023, when he was hospitalized in [place], for acute abdominal pain, for which he underwent lap arotomy on 08/05/2023. Patient was found to have previous hernia, that had a mesh around it and it went around the small bowel and "rotten it". 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 They are not sure if patient has a separate colon cancer as well. Patient was transported by Road service from [place] and he arrived in [place] at his home last 08/24/2023. He was doing well until he had an episode of unresponsiveness as mentioned below in detail. As per EMS flowsheet, when they arrived for an unresponsive person. On arrival patient is sitting in the recliner with feet elevated, leaning to the right. Patient was unconscious and unresponsive with respiration rate of 12. Her lungs were clear. No respiratory distress noted. Patient's states that she saw patient in the chair at 5 PM, states she thought he was sleeping. At approximately 7 PM she was unable to wake him up. Initial Accu-Chek was 44 mg/dL. Patient was given 12.5 g of dextrose 50% IV push. Patient's denied patient having any complaints earlier in the morning. Denies recent illness. Patient has a wound VAC attached to abdomen surgical site. Patient has history of pancreatic cancer. Patient was still unresponsive to any stimuli and recheck of blood glucose was 112. EKG showed demand pacing rhythm. Patient's room air oxygen saturation 91%. Patient placed on nonrebreather mask. Recheck blood glucose was 62. Patient was given an additional 12.5 g of dextrose 50%. Shortly after patient started moving his left arm and leg. Patient's eyes were open and looking to the right. Patient was following some commands. Patient was not moving the right arm or leg. Patient only looking to the right. Repeat blood glucose was 244. Patient's blood pressure was 151/93, pulse rate 76. Blood test shows normal CBC, INR 1.5 PTT is normal. Sodium is normal potassium 2.3. Hepatic panel is normal, renal functions normal. Troponin negative. Blood alcohol level negative. UA and urine drug screen negative. EKG shows electronic ventricular pacemaker. CT head revealed no evidence of acute intracranial hemorrhage. No CT evidence of acute territorial infarct. Moderate atrophy and chronic microvascular ischemic changes. Chest x-ray revealed left chest dual lead pacemaker. Patient has history of diabetes for 40 years, hypertension, hyperlipidemia. He smoked 1 to 2 pack/day for 20 years, quit in 1979. Patient denies any alcohol or drugs. 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 No previous history of strokes or TIA. Patient has history of prostate cancer, currently in remission. Patient used to walk without any assistive device, although he has been using walker since his abdominal surgery in July 2023. Patient's home medications include Lipitor 80 mg, donepezil 10 mg, insulin, amlodipine, losartan, multivitamins, oxybutynin and sertraline 50 mg. Patient does not take any antiplatelet medication at home. Review of Systems Constitutional: Reports chills, Reports weight loss (15-20 lbs), Denies fever Eyes: denies blurred vision, denies diplopia, denies pain, denies loss of vision Ears: deny: decreased hearing, ear discharge Ears, nose, mouth and throat: Denies headache, Denies sore throat, Denies vertigo Cardiovascular: Denies chest pain, Denies shortness of breath Respiratory: Denies cough, Denies excessive sputum Gastrointestinal: Reports diarrhea, Denies abdominal pain, Denies nausea, Denies vomiting Genitourinary: Denies incontinence, Denies urinary frequency Musculoskeletal: Denies low back pain, Denies neck pain Integumentary: Denies pruritus, Denies rash Neurological: Reports as per HPI Psychiatric: Reports depression, Denies anxiety Endocrine: Reports weight change, Denies fatigue Hematologic/Lymphatic: Denies easy bleeding, Denies easy bruising Past Medical History Past Medical History: Cancer, Diabetes Mellitus, GERD/Reflux, Hypertension Additional Past Medical History / Comment(s): heart murmur, prostate cancer with radiation History of Any Multi-Drug Resistant Organisms: None Reported Past Surgical History: Hernia Repair, Joint Replacement, Orthopedic Surgery Additional Past Surgical History / Comment(s): esophageal surgery, lt ankle surgery,lt knee replacement Past Anesthesia/Blood Transfusion Reactions: No Reported Reaction Past Psychological History: Anxiety, Depression Smoking Status: Former smoker Past Alcohol Use History: None Reported Additional Past Alcohol Use History / Comment(s): smoker for 20 years 1-2 ppd qu it 1979 Past Drug Use History: None Reported - Past Family History Mother Family Medical History: Hypertension Medications and Allergies Home Medications Medication Instructions Recorded Confirmed Type Atorvastatin [Lipitor] 80 mg PO DAILY 04/14/20 08/31/23 History Donepezil [Aricept] 10 mg PO HS 04/14/20 08/31/23 History INSULIN LISPRO (humaLOG) [humaLOG] 12 units SQ BID-W/MEALS 04/14/20 08/31/23 History INSULIN LISPRO (humaLOG) [humaLOG] 16 units SQ AC-LUNCH 04/14/20 08/31/23 History Insulin Glargine,Hum.rec.anlog 68 units SQ DAILY 04/14/20 08/31/23 History [Toujeo Solostar] Losartan Potassium [Cozaar] 100 mg PO HS 04/14/20 08/31/23 History Multivitamins, Thera [Multivitamin 1 tab PO DAILY 04/14/20 08/31/23 History (formulary)] Oxybutynin Chloride [oxyBUTYnin 10 mg PO DAILY 04/14/20 08/31/23 History chloride ER] Sertraline [Zoloft] 50 mg PO DAILY 04/14/20 08/31/23 History amLODIPine BESYLATE 10 mg PO DAILY 04/14/20 08/31/23 History Allergies Allergy/AdvReac Type Severity Reaction Status Date / Time No Known Allergies Allergy Verified 08/31/23 21:32 Physical Examination - Vital Signs Vital Signs: Vital Signs Temp Pulse Pulse Resp BP BP Pulse Ox 09/01/23 09:43 96 09/01/23 08:00 98 F 69 18 138/72 97 09/01/23 03:29 98.3 F 65 18 153/84 99 08/31/23 23:52 96.3 F L 62 18 130/69 99 08/31/23 22:16 98.3 F 65 18 129/76 97 08/31/23 21:46 98.3 F 67 18 107/68 97 08/31/23 21:31 98.2 F 67 18 112/70 97 08/31/23 21:26 72 18 126/73 95 08/31/23 21:16 98.2 F 71 18 99/52 97 08/31/23 21:01 98.0 F 82 18 111/66 96 08/31/23 20:46 98.0 F 68 18 126/73 96 08/31/23 20:11 78 14 104/67 93 L 08/31/23 19:59 97.6 F 72 12 112/71 92 L Intake and Output 08/31/23 09/01/23 09/01/23 22:59 06:59 14:59 Intake Total 120 Output Total 300 Balance -300 120 Intake: Oral 120 Output: Urine 300 Other: Voiding Method External Catheter Weight 84.867 kg 84.867 kg Patient is an elderly male, very pleasant, in no acute distress. Patient is alert awake oriented to time place and person. Speech and language functions are normal. Patient can name and repeat very well. No aphasia or dysarthria. Attention, concentration and fund of knowledge is adequate. On cranial nerve examination, pupils are equal, round and reacting to light, visual barrow are full on confrontation, with no neglect on double simultaneous stimulation. Extraocular muscles are intact with no nystagmus. Face is symmetric, tongue protrudes to the midline. Palatal elevation and sensation normal, hearing and shoulder shrug normal, facial sensation normal. On muscle strength testing, there is no pronator drift and the strength is mary l in arms and legs distally and proximally. Deep tendon reflexes are symmetric 2 at the biceps, 1 brachioradialis, 2 at the right knee, had surgical scar on the left knee. Absent ankles and plantars are flat. Patient has hammertoes and high arched feet. Sensory to touch is equal with no neglect on double simultaneous stimulation. Cerebellar function showed no ataxia for suxtin-rn-owpc testing. No dysdiadochokinesia. Tone and bulk of muscles normal. Gait deferred.. On general examination, there is no carotid bruit or murmur, S1-S2 audible. Chest is clear on consultation. Abdomen is soft nontender. No organomegaly, bowel sounds present. Peripheral pulses are present. No peripheral edema. Results - Laboratory Findings CBC and BMP: 08/31/23 20:07 08/31/23 20:07 Abnormal Lab Findings: Abnormal Labs 08/31/23 08/31/23 08/31/23 20:07 20:07 20:07 Hgb 12.8 L Neutrophils # 8.3 H Lymphocytes # 0.8 L PT 15.9 H INR 1.5 H Potassium 2.3 L* Chloride 109 H POC Glucose (mg/dL) Magnesium Alkaline Phosphatase 128 H Creatine Kinase 29 L Total Protein 6.1 L Albumin 2.8 L Ur Specific [place] 08/31/23 08/31/23 08/31/23 20:44 20:57 21:23 Hgb Neutrophils # Lymphocytes # PT INR Potassium Chloride POC Glucose (mg/dL) 42 L 129 H Magnesium 1.3 L Alkaline Phosphatase Creatine Kinase Total Protein Albumin Ur Specific [place] 08/31/23 08/31/23 09/01/23 22:11 23:59 06:09 Hgb Neutrophils # Lymphocytes # PT INR Potassium Chloride POC Glucose (mg/dL) 125 H 119 H Magnesium Alkaline Phosphatase Creatine Kinase Total Protein Albumin Ur Specific [place] 1.050 H 09/01/23 09/01/23 09/01/23 06:15 09:55 10:15 Hgb Neutrophils # Lymphocytes # PT INR Potassium Chloride POC Glucose (mg/dL) 111 H 43 L 43 L Magnesium Alkaline Phosphatase Creatine Kinase Total Protein Albumin Ur Specific [place] Assessment and Plan Assessment: * Acute episode of unresponsiveness, likely due to hypoglycemia. Patient's blood sugar was 44 at that time. After giving glucose, patient's mentation improved, but had right gaze preference, and right-sided weakness noticed by the EMS staff. All symptoms resolved by the time patient arrived to the ER. At present his NIH stroke scale is 0. * Altered mental status, likely due to acute hypoglycemia * Hypokalemia * Hyperlipidemia * Hypertension * Diabetes * History of prostate cancer * Ex tobacco use * Pacemaker Plan: * Although patient's right-sided weakness could be related to hypoglycemia, but patient has multiple vascular risk factors and need workup for possible TIA. * Patient cannot have MRI because of presence of pacemaker. * 2-D echo with bubble study to rule out PFO * CTA head and neck showed: No dissection, hemodynamically significant stenosis or pseudoaneurysm detected in the carotid or vertebral arteries in the neck. Mild atherosclerotic calcifications at the carotid bifurcations. Moderate atherosclerotic calcification along the aortic arch without evidence of dissection. Partially seen ascending aorta appears dilated up to 4.1 cm. CTA of the head showed mild atherosclerotic disease otherwise normal. * Fasting a.m. lipid panel * Hemoglobin A1c * Optimize control of blood pressure * Patient was given aspirin 324 mg in the ER, and started on aspirin 81 mg daily. Agree. * Neuro checks every 4 hours * Telemetry monitoring rule out any arrhythmia * PT, OT * DVT prophylaxis: Heparin 5000 units subcu every 8 hours * Dr. Jared Brenner will resume neurology service in the morning. Thank you for the consult.
--- NOTE | 2023-09-01 12:34 | P.PN ---
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 He presented to the emergency department on 08/31/2023 via EMS for reports of altered mental status. Per documentation in chart patient reported to and daughter that he was not feeling well and laid down to take a nap and when they attempted to wake him a couple hours later he was unresponsive so they called EMS. Patient was reportedly found to be hypoglycemic with blood glucose in the 40s and was provided with D50 resulting in improving blood glucose levels without significant improvement in patient's mental status. Upon arrival to the emergency department patient was found to have significant right-sided hemiparesis and a stroke code was called. CT brain was completed negative for acute intracranial process showing moderate atrophy and chronic microvascular ischemic changes. CTA head was negative for acute process showing no intracranial large vessel occlusion, significant stenosis, or sizable aneurysm detected revealing only mild atherosclerotic disease. CTA neck also negative for acute process revealing mild atherosclerotic calcifications at the carotid bifurcations and moderate atherosclerotic calcification along the aortic arch without evidence of dissection but did reveal a dilated ascending aorta measuring up to 4.1 cm. EKG was completed showing a ventricular paced rhythm at 75 bpm. Chest x-ray completed negative for acute cardiopulmonary process but did reveal findings that patient's left chest dual-lead pacemaker appeared slightly rotated compared to previous position but did report lead tips do not appear significantly changed in their position. Labs were completed and reviewed. CBC showing mild anemia with hemoglobin of 12.8. BMP revealing critical hypokalemia with potassium of 2.3, glucose 119. Magnesium also low at 1.3. Liver profile showing elevated alkaline phosphatase of 128 otherwise normal findings. Troponin was 0.034. Urinalysis negative for infection, urine drug screen negative, and serum alcohol also negative. Patient's mentation and weakness gradually improved in the emergency department but he was still not at his reported baseline per family. Patient with recurrent episodes of hypoglycemia, has had no further episodes of right-sided hemiparesis or any other noted neurological abnormalities. Physical exam: Patient seen and fully evaluated at bedside this morning,.he appeared to be doing well and was alert and oriented with full strength and sensation back in his right side, his speech was clear and he had no facial droop noted. However patient's blood glucose levels again low this morning at 43. Patient was given orange juice and repeat glucose was again 43 so an 1 amp of D50 was given resulting in increasing his blood glucose to 105. D5 0.9% infusion increased to 100 cc/h continue blood glucose checks every 2 hours. Patient denies feeling symptomatic from low blood glucose levels and denies having any headache, lightheadedness, dizziness, chest pain, palpitations, shortness of breath, abdominal pain or discomfort, nausea, vomiting, diarrhea or any other complaints at this time. Vital signs reviewed and stable. General: Nontoxic, no distress and appears stated age. Derm: Skin warm and dry, normal coloration for ethnicity. Head: Atraumatic, normocephalic and symmetric. Eyes: EOMs intact, no lid lag, and anicteric sclera Mouth: no lip lesions, mucus membranes moist Cardiovascular: regular rate and rhythm with normal S1S2, systolic murmur, positive posterior tibial pulses bilaterally, and cap refill < 2 seconds. Lungs: Respirations even, regular, and unlabored on room air. Lungs CTA bilaterally, no rhonchi, no rales, no wheezing, and no accessory muscle usage. Abdominal: soft, nontender to palpation, no guarding, no appreciable organomegaly. Wound VAC midline abdomen with no Ext: ROM intact. No gross muscle atrophy, no edema, no contractures Neuro: Speech clear, face symmetrical and CN II-XII grossly intact with no noted focal neuro deficits Psych: Alert and oriented to person, place, time, and situation. Appropriate and pleasant affect. Assessment and Plan of Care: Acute metabolic encephalopathy, believed to be secondary to hypoglycemia and electrolyte imbalances Right-sided hemiparesis, improved. Rule out TIA vs CVA Hypoglycemia, recurrent episodes. Believed to be secondary to previous home administration of long-acting insulin Toujeo. Patient is a type 2 insulin- dependent diabetic. Severe hypokalemia Hypomagnesemia Hypoalbuminemia Severe protein calorie malnourishment -Patient started on aspirin 81 mg daily in addition to continuation of atorvastatin 80 mg daily. -Continue NIH assessment with neurochecks every 4 hours -D5 0.9% NS infusion increased to 100 cc/h and orders placed for glycemic pro tocol with dextrose D5 25 mL ( 1/2 amp) to be administered for blood glucose 50- 70 and D5 50 mL ( 1 amp) to be administered for blood glucose less than 50. -Electrolytes were replaced overnight in the emergency department. Orders placed for stat CBC, CMP, and magnesium to follow-up for improvement/resolution of hypokalemia and hypomagnesemia. Will follow-up with these results and place additional orders as indicated based upon these findings. -Order placed for continuous telemetry monitoring. -Neurology consulted, appreciate recommendations. -Continue blood glucose checks every 2 hours. -Lipid profile and hemoglobin A1c to be completed. -Consult placed to dietitian for poor oral intake and patient started on protein supplements 3 times daily between meals. Dilated ascending aortic root -CTA revealing dilated ascending aortic root up to 4.1 cm and upon further evaluation echocardiogram completed 04/08/2023 shows previously noted finding unchanged with echo reporting moderately dilated ascending aortic root 4.3 cm -Continue to follow-up outpatient with supervisor wall mirror department for long-term monitoring and/or management if indicated. Metastatic abdominal malignancy status post colectomy 08/05/2023 -Order placed to wound care for continued management of wound VAC. -Consult placed to patient's oncologist, Dr. Childress. Hypertension Hyperlipidemia History of third-degree heart block status post permanent pacemaker placement -Continue daily medication regimen with amlodipine 10 mg daily, 81 mg daily, atorvastatin 80 mg, and losartan 100 mg nightly. Dementia Anxiety and depression Continue daily medication regimen with Aricept 10 mg nightly and sertraline 50 mg daily. Data and imaging reviewed: -Blood glucose levels again low this morning at 43. Patient was given orange juice and repeat glucose was again 43 so an 1 amp of D50 was given resulting in increasing his blood glucose to 105. D5 0.9% infusion increased to 100 cc/h. -CBC, CMP, and magnesium were ordered for stat draw and currently pending results. Will follow-up on these results and place additional orders as indicated based upon these findings. -Vital signs reviewed and stable with blood pressure 138/72, heart rate 69, respiratory rate 18, temp 98.0 F, and SpO2 of 97% on 2 L. CODE STATUS: Full code DVT prophylaxis: Lovenox Anticipated discharge date: Clinical course to determine Anticipated discharge place: Clinical course to determine Patient was seen independently by Nurse Pracitioner. This document was prepared using [employer] dictation software. Please allow for errors in top knitter, while rare they do occur. I reviewed the documentation as provided by the TERE above, who is the original author of this note. I agree with the documented assessment and plan, with the following changes: none Objective - Vital Signs Vital signs: Vital Signs Temp 98.3 F 09/01/23 03:29 Pulse 65 09/01/23 03:29 Resp 18 09/01/23 03:29 BP 153/84 09/01/23 03:29 Pulse Ox 99 09/01/23 03:29 FiO2 Intake & Output 08/31/23 09/01/23 09/01/23 18:59 06:59 18:59 Output Total 300 Balance -300 Weight 84.867 kg Output: Urine 300 Other: Voiding Method External Catheter - Labs CBC & Chem 7: 09/02/23 06:19 09/02/23 06:19 Labs: Abnormal Lab Results - Last 24 Hours (Table) 08/31/23 08/31/23 08/31/23 Range/Units 20:07 20:07 20:07 Hgb 12.8 L (13.0-17.5) gm/dL Neutrophils # 8.3 H (1.3-7.7) k/uL Lymphocytes # 0.8 L (1.0-4.8) k/uL PT 15.9 H (10.0-12.5) sec INR 1.5 H (<1.2) Potassium 2.3 L* (3.5-5.1) mmol/L Chloride 109 H (98-107) mmol/L POC Glucose (mg/dL) (70-110) mg/dL Magnesium (1.6-2.3) mg/dL Alkaline Phosphatase 128 H (38-126) U/L Creatine Kinase 29 L (55-170) U/L Total Protein 6.1 L (6.3-8.2) g/dL Albumin 2.8 L (3.5-5.0) g/dL Ur Specific [place] (1.001-1.035) 08/31/23 08/31/23 08/31/23 Range/Units 20:44 20:57 21:23 Hgb (13.0-17.5) gm/dL Neutrophils # (1.3-7.7) k/uL Lymphocytes # (1.0-4.8) k/uL PT (10.0-12.5) sec INR (<1.2) Potassium (3.5-5.1) mmol/L Chloride (98-107) mmol/L POC Glucose (mg/dL) 42 L 129 H (70-110) mg/dL Magnesium 1.3 L (1.6-2.3) mg/dL Alkaline Phosphatase (38-126) U/L Creatine Kinase (55-170) U/L Total Protein (6.3-8.2) g/dL Albumin (3.5-5.0) g/dL Ur Specific [place] (1.001-1.035) 08/31/23 08/31/23 09/01/23 Range/Units 22:11 23:59 06:09 Hgb (13.0-17.5) gm/dL Neutrophils # (1.3-7.7) k/uL Lymphocytes # (1.0-4.8) k/uL PT (10.0-12.5) sec INR (<1.2) Potassium (3.5-5.1) mmol/L Chloride (98-107) mmol/L POC Glucose (mg/dL) 125 H 119 H (70-110) mg/dL Magnesium (1.6-2.3) mg/dL Alkaline Phosphatase (38-126) U/L Creatine Kinase (55-170) U/L Total Protein (6.3-8.2) g/dL Albumin (3.5-5.0) g/dL Ur Specific [place] 1.050 H (1.001-1.035) 09/01/23 Range/Units 06:15 Hgb (13.0-17.5) gm/dL Neutrophils # (1.3-7.7) k/uL Lymphocytes # (1.0-4.8) k/uL PT (10.0-12.5) sec INR (<1.2) Potassium (3.5-5.1) mmol/L Chloride (98-107) mmol/L POC Glucose (mg/dL) 111 H (70-110) mg/dL Magnesium (1.6-2.3) mg/dL Alkaline Phosphatase (38-126) U/L Creatine Kinase (55-170) U/L Total Protein (6.3-8.2) g/dL Albumin (3.5-5.0) g/dL Ur Specific [place] (1.001-1.035)
[2023-09-01 12:49] LABS: Chol/HDL Ratio 2.71 Ratio; LDL Cholesterol,Calculated 57.2 mg/dL (0.0-131.0); VLDL Calculation 11.64 mg/dL (5.00-40.00)
[2023-09-01] MEDS: ASPIRIN 81 MG PO SCH (12:49)
[2023-09-01] MEDS: ENOXAPARIN 40 MG/0.4 ML SYRINGE SQ SCH (12:50)
[2023-09-01 13:48] LABS: HCT 39.1 % (39.0-53.0); HGB 12.6 gm/dL (13.0-17.5); Hypochromasia Slight; MCH 28.6 pg (25.0-35.0); MCHC 32.4 g/dL (31.0-37.0); MCV 88.5 fL (80.0-100.0); Mean Platelet Volume 8.6; Platelet Count 185 k/uL (150-450); RBC 4.41 m/uL (4.30-5.90); RDW 14.9 % (11.5-15.5); WBC 13.9 k/uL (3.8-10.6)
[2023-09-01 14:02] LABS: ALT 13 U/L (4-49); AST 23 U/L (17-59); African American GFR (CKD) >90 (>60 ml/min/1.73 sqM); Albumin 2.7 g/dL (3.5-5.0); Alkaline Phosphatase 127 U/L (38-126); Anion Gap 11 mmol/L; Blood Urea Nitrogen 14 mg/dL (9-20); Calcium 8.8 mg/dL (8.4-10.2); Carbon Dioxide 18 mmol/L (22-30); Chloride 109 mmol/L (98-107); Glucose 144 mg/dL (74-99); Magnesium 1.7 mg/dL (1.6-2.3); Non-African American GFR(CKD) >90 (>60 ml/min/1.73 sqM); Potassium 3.9 mmol/L (3.5-5.1); Sodium 138 mmol/L (137-145)
[2023-09-01 14:04] LABS: Glucose,Whole Blood 160 mg/dL (70-110)
[2023-09-01] MEDS: MAGNESIUM SULFATE-D5W PMX 1 GM in DEXTROSE/WATER 1 100ML.BAG IVPB SCH (15:31)
[2023-09-01 16:20] LABS: Glucose,Whole Blood 101 mg/dL (70-110)
[2023-09-01 18:05] LABS: Glucose,Whole Blood 73 mg/dL (70-110)
[2023-09-01] MEDS: DONEPEZIL 10 MG TAB PO SCH (20:09)
[2023-09-01] MEDS: LOSARTAN 50 MG TAB PO SCH (20:09)
[2023-09-01 20:47] LABS: Glucose,Whole Blood 86 mg/dL (70-110)
[2023-09-01 22:09] LABS: Glucose,Whole Blood 80 mg/dL (70-110)
[2023-09-01 23:51] LABS: Glucose,Whole Blood 109 mg/dL (70-110)
--- NOTE | 2023-09-02 01:18 | CT ---
EXAM: CT Head Without Intravenous Contrast CLINICAL HISTORY: ITS.REASON CT Reason: fall TECHNIQUE: Axial computed tomography images of the head/brain without intravenous contrast. CTDI is 49.2 mGy and DLP is 1271.4 mGy-cm. This CT exam was performed using one or more of the following dose reduction techniques: automated exposure control, adjustment of the mA and/or kV according to patient size, and/or use of iterative reconstruction technique. COMPARISON: No relevant prior studies available. FINDINGS: No acute intracranial hemorrhage. No midline shift or mass effect. The territorial chin-white matter differentiation is maintained throughout. Age-related cerebral volume loss. Periventricular and subcortical white matter hypoattenuation, consistent with chronic microangiopathy. The visualized orbits appear grossly unremarkable. The calvarium is intact. The visualized paranasal sinuses and mastoid air cells are grossly clear. IMPRESSION: No acute intracranial hemorrhage, midline shift, or mass effect.
--- NOTE | 2023-09-02 01:30 | XR ---
EXAM: XR Bilateral Hips With Pelvis When Performed, 4 or More Views CLINICAL HISTORY: ITS.REASON XR Reason: fall TECHNIQUE: Four or more views of the bilateral hips with pelvis when performed. COMPARISON: No relevant prior studies available. FINDINGS: Bones/joints: Osseous demineralization. No dislocation. No fracture of the bilateral hips. Soft tissues: Unremarkable. IMPRESSION: No acute findings in the bilateral hips. Recommend pelvic radiograph to accompany the hip radiographs.
[2023-09-02 02:06] LABS: Glucose,Whole Blood 56 mg/dL (70-110)
[2023-09-02 02:28] LABS: Glucose,Whole Blood 79 mg/dL (70-110)
[2023-09-02 04:16] LABS: Glucose,Whole Blood 79 mg/dL (70-110)
[2023-09-02 07:07] LABS: HCT 38.9 % (39.0-53.0); HGB 12.4 gm/dL (13.0-17.5); Hypochromasia Slight; MCH 27.6 pg (25.0-35.0); MCHC 31.8 g/dL (31.0-37.0); MCV 86.8 fL (80.0-100.0); Mean Platelet Volume 8.4; Platelet Count 196 k/uL (150-450); RBC 4.48 m/uL (4.30-5.90); RDW 15.1 % (11.5-15.5); WBC 10.2 k/uL (3.8-10.6)
[2023-09-02 07:17] LABS: Glucose,Whole Blood 80 mg/dL (70-110)
[2023-09-02 07:19] LABS: Glucose,Whole Blood 81 mg/dL (70-110)
[2023-09-02 07:21] LABS: ALT 14 U/L (4-49); AST 19 U/L (17-59); African American GFR (CKD) >90 (>60 ml/min/1.73 sqM); Albumin 2.5 g/dL (3.5-5.0); Alkaline Phosphatase 134 U/L (38-126); Anion Gap 6 mmol/L; Blood Urea Nitrogen 11 mg/dL (9-20); Calcium 8.7 mg/dL (8.4-10.2); Carbon Dioxide 25 mmol/L (22-30); Chloride 109 mmol/L (98-107); Glucose 74 mg/dL (74-99); Magnesium 1.7 mg/dL (1.6-2.3); Non-African American GFR(CKD) >90 (>60 ml/min/1.73 sqM); Potassium 3.2 mmol/L (3.5-5.1); Sodium 140 mmol/L (137-145); Total Bilirubin 0.8 mg/dL (0.2-1.3); Total Protein 5.5 g/dL (6.3-8.2)
[2023-09-02 09:45] LABS: Glucose,Whole Blood 82 mg/dL (70-110)
[2023-09-02 11:04] VITALS: BMI 24.0
[2023-09-02 11:49] LABS: Glucose,Whole Blood 113 mg/dL (70-110)
[2023-09-02 14:27] LABS: Glucose,Whole Blood 233 mg/dL (70-110)
--- NOTE | 2023-09-02 15:52 | P.PN ---
Subjective Progress Note Date: 09/02/23 Hospital course: Patient is a very pleasant 82-year-old male with a past medical history of recently diagnosed metastatic abdominal malignancy status post colectomy in [place] on 08/05/2023 and following outpatient with Dr. 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 He presented to the emergency department on 08/31/2023 via EMS for reports of altered mental status. Per documentation in chart patient reported to and daughter that he was not feeling well and laid down to take a nap and when they attempted to wake him a couple hours later he was unresponsive so they called EMS. Patient was reportedly found to be hypoglycemic with blood glucose in the 40s and was provided with D50 resulting in improving blood glucose levels without significant improvement in patient's mental status. Upon arrival to the emergency department patient was found to have significant right-sided hemiparesis and a stroke code was called. CT brain was completed negative for acute intracranial process showing moderate atrophy and chronic microvascular ischemic changes. CTA head was negative for acute process showing no intracranial large vessel occlusion, significant stenosis, or sizable aneurysm detected revealing only mild atherosclerotic disease. CTA neck also negative for acute process revealing mild atherosclerotic calcifications at the carotid bifurcations and moderate atherosclerotic calcification along the aortic arch without evidence of dissection but did reveal a dilated ascending aorta measuring up to 4.1 cm. EKG was completed showing a ventricular paced rhythm at 75 bpm. Chest x-ray completed negative for acute cardiopulmonary process but did reveal findings that patient's left chest dual-lead pacemaker appeared slightly rotated compared to previous position but did report lead tips do not appear significantly changed in their position. Labs were completed and reviewed. CBC showing mild anemia with hemoglobin of 12.8. BMP revealing critical hypokalemia with potassium of 2.3, glucose 119. Magnesium also low at 1.3. Liver profile showing elevated alkaline phosphatase of 128 otherwise normal findings. Troponin was 0.034. Urinalysis negative for infection, urine drug screen negative, and serum alcohol also negative. Patient's mentation and weakness gradually improved in the emergency department but he was still not at his reported baseline per family. Patient with recurrent episodes of hypoglycemia, has had no further episodes of right-sided hemiparesis or any other noted neurological abnormalities. Physical exam: Patient seen and fully evaluated at bedside this morning,. His blood glucose levels have been better controlled patient had 1 episode of hypoglycemia overnight with blood glucose dropping to 56 while on D5 infusion. Currently blood glucose levels 80. Patient continues to deny having any further episodes of right-sided weakness, numbness, or tingling. Pt is alert and oriented x 3. He denies any other complaints including headache, lightheadedness, dizziness, chest pain, palpitations, or shortness of breath. Vital signs reviewed and stable. General: Nontoxic, no distress and appears stated age. Derm: Skin warm and dry, normal coloration for ethnicity. Head: Atraumatic, normocephalic and symmetric. Eyes: EOMs intact, no lid lag, and anicteric sclera Mouth: no lip lesions, mucus membranes moist Cardiovascular: regular rate and rhythm with normal S1S2, systolic murmur, positive posterior tibial pulses bilaterally, and cap refill < 2 seconds. Lungs: Respirations even, regular, and unlabored on room air. Lungs CTA bi laterally, no rhonchi, no rales, no wheezing, and no accessory muscle usage. Abdominal: soft, nontender to palpation, no guarding, no appreciable organomegaly. Wound VAC midline abdomen with no erythema surrounding Ext: ROM intact. No gross muscle atrophy, no edema, no contractures Neuro: Speech clear, face symmetrical and CN II-XII grossly intact with no noted focal neuro deficits Psych: Alert and oriented to person, place, and situation. Appropriate and pleasant affect. Assessment and Plan of Care: Acute metabolic encephalopathy, believed to be secondary to hypoglycemia and electrolyte imbalances Right-sided hemiparesis, improved. Rule out TIA vs CVA Hypoglycemia, recurrent episodes. Believed to be secondary to previous home administration of long-acting insulin Toujeo. Patient is a type 2 insulin- dependent diabetic. Hypokalemia Hypomagnesemia Hypoalbuminemia Severe protein calorie malnourishment -Continue aspirin 81 mg daily and atorvastatin 80 mg daily. -Continue NIH assessment with neurochecks every 4 hours -D5 0.9% NS infusion decreased to 50 cc/h and patient to continue glycemic protocol with dextrose D5 25 mL ( 1/2 amp) to be administered for blood glucose 50-70 and D5 50 mL ( 1 amp) to be administered for blood glucose less than 50. -Patient to remain on continuous telemetry monitoring. -Neurology consulted, appreciate recommendations. -Continue blood glucose checks every 2 hours. -Hemoglobin A1c 8.8%. -Lipid profile unremarkable. -Consult placed to dietitian for poor oral intake and patient to continue protein supplements 3 times daily between meals. Dilated ascending aortic root -CTA revealing dilated ascending aortic root up to 4.1 cm and upon further evaluation echocardiogram completed 04/08/2023 shows previously noted finding unchanged with echo reporting moderately dilated ascending aortic root 4.3 cm -Continue to follow-up outpatient with distributor sales consultant for long-term monitoring and/or management if indicated. Metastatic abdominal malignancy status post colectomy 08/05/2023 -Wound care following for continued management of wound VAC. -Consult placed to patient's oncologist, Dr. Childress. Hypertension Hyperlipidemia History of third-degree heart block status post permanent pacemaker placement -Continue daily medication regimen with amlodipine 10 mg daily, 81 mg daily, atorvastatin 80 mg, and losartan 100 mg nightly. Dementia Anxiety and depression Continue daily medication regimen with Aricept 10 mg nightly and sertraline 50 mg daily. Data and imaging reviewed: -CBC showing stable normocytic anemia with hemoglobin of 12.4. BMP revealing h ypokalemia with potassium of 3.2 and hypomagnesemia with magnesium of 1.7. Orders placed for K-Dur 40 mEq p.o. x 1 dose and mag sulfate 2 g IVPB. -Vital signs reviewed and stable with blood pressure 159/77, heart rate 64, respiratory rate 16, temp 98.7 F, and SpO2 of 96% on 2 L. CODE STATUS: Full code DVT prophylaxis: Lovenox Anticipated discharge date: Clinical course to determine Anticipated discharge place: Clinical course to determine Patient was seen independently by Nurse Pracitioner. This document was prepared using [employer] dictation software. Please allow for errors in fire prevention chief, while rare they do occur. I reviewed the documentation as provided by the TERE above, who is the original author of this note. I agree with the documented assessment and plan, with the following changes: none Objective - Vital Signs Vital signs: Vital Signs Temp 98.1 F 09/01/23 20:14 Pulse 69 09/02/23 04:15 Resp 16 09/02/23 04:15 BP 155/76 09/02/23 04:15 Pulse Ox 99 09/02/23 04:15 FiO2 Intake & Output 09/01/23 09/02/23 09/02/23 18:59 06:59 18:59 Intake Total 1370 540 Output Total 600 Balance 770 540 Intake: Oral 1370 540 Output: Urine 600 Other: Voiding Method Diaper Diaper External Catheter External Catheter # Voids 1 # Bowel Movements 1 1 - Labs CBC & Chem 7: 09/02/23 06:19 09/02/23 06:19 Labs: Abnormal Lab Results - Last 24 Hours (Table) 09/01/23 09/01/23 09/01/23 Range/Units 09:55 10:15 12:46 WBC 13.9 H (3.8-10.6) k/uL Hgb 12.6 L (13.0-17.5) gm/dL Hct (39.0-53.0) % Potassium (3.5-5.1) mmol/L Chloride (98-107) mmol/L Carbon Dioxide (22-30) mmol/L Creatinine (0.66-1.25) mg/dL Glucose (74-99) mg/dL POC Glucose (mg/dL) 43 L 43 L (70-110) mg/dL Hemoglobin A1c (<=6.0) % Alkaline Phosphatase (38-126) U/L Total Protein (6.3-8.2) g/dL Albumin (3.5-5.0) g/dL 09/01/23 09/01/23 09/01/23 Range/Units 12:46 12:46 14:03 WBC (3.8-10.6) k/uL Hgb (13.0-17.5) gm/dL Hct (39.0-53.0) % Potassium (3.5-5.1) mmol/L Chloride 109 H (98-107) mmol/L Carbon Dioxide 18 L (22-30) mmol/L Creatinine 0.61 L (0.66-1.25) mg/dL Glucose 144 H (74-99) mg/dL POC Glucose (mg/dL) 160 H (70-110) mg/dL Hemoglobin A1c 8.8 H (<=6.0) % Alkaline Phosphatase 127 H (38-126) U/L Total Protein 6.0 L (6.3-8.2) g/dL Albumin 2.7 L (3.5-5.0) g/dL 09/02/23 09/02/23 09/02/23 Range/Units 02:03 06:19 06:19 WBC (3.8-10.6) k/uL Hgb 12.4 L (13.0-17.5) gm/dL Hct 38.9 L (39.0-53.0) % Potassium 3.2 L (3.5-5.1) mmol/L Chloride 109 H (98-107) mmol/L Carbon Dioxide (22-30) mmol/L Creatinine 0.64 L (0.66-1.25) mg/dL Glucose (74-99) mg/dL POC Glucose (mg/dL) 56 L (70-110) mg/dL Hemoglobin A1c (<=6.0) % Alkaline Phosphatase 134 H (38-126) U/L Total Protein 5.5 L (6.3-8.2) g/dL Albumin 2.5 L (3.5-5.0) g/dL
[2023-09-02 16:09] LABS: Glucose,Whole Blood 243 mg/dL (70-110)
[2023-09-02] MEDS: MAGNESIUM SULFATE-D5W PMX 1 GM in DEXTROSE/WATER 1 100ML.BAG IVPB SCH (17:14)
[2023-09-02] MEDS: POTASSIUM CHLORIDE ER 20 MEQ TAB.ER PO STA (17:14)
[2023-09-02 18:11] LABS: Glucose,Whole Blood 222 mg/dL (70-110)
--- NOTE | 2023-09-02 19:49 | P.PN ---
Subjective Progress Note Date: 09/02/23 I am seeing the patient for the first time during this admission. Please refer to Dr. Babb's notes for further details. Seems the patient had the hypoglycemia as well as in the 40s and had the altered mental status and unresponsiveness and had right gaze preference with right- sided weakness noticed by EMS. Patient had the CT of the head which was negative. He feels he is doing drastically better and denies any focal weakness any further confusion. Objective - Vital Signs Vital signs: Vital Signs Temp 98.8 F 09/02/23 16:00 Pulse 74 09/02/23 16:00 Resp 18 09/02/23 16:00 BP 157/69 09/02/23 16:00 Pulse Ox 95 09/02/23 16:00 FiO2 Intake & Output 09/02/23 09/02/23 09/03/23 06:59 18:59 06:59 Intake Total 540 360 Balance 540 360 Weight 84.867 kg Intake: Oral 540 360 Other: Voiding Method Diaper Diaper External Catheter Incontinent External Catheter # Voids 1 2 # Bowel Movements 1 2 - Exam GENERAL: The patient is lying in bed and is not in acute distress. NEUROLOGICAL: Higher mental function: The patient is awake, alert, oriented to self, place and time. Patient is following commands. No aphasia and no neglect. Cranial nerves: Facial sensation is normal to touch throughout. The facial strength is normal throughout. Tongue is midline and moved [id number] without any difficulty. No dysarthria is noted. Shoulder shrug is normal bilaterally. Motor: The strength is 5 over 5 throughout. Normal tone and bulk. Cerebellum: Normal finger to nose bilaterally. Sensation: Sensation is normal to touch throughout. - Labs CBC & Chem 7: 09/02/23 06:19 09/02/23 06:19 Labs: Abnormal Lab Results - Last 24 Hours (Table) 09/01/23 09/02/23 09/02/23 Range/Units 12:46 02:03 06:19 Hgb 12.4 L (13.0-17.5) gm/dL Hct 38.9 L (39.0-53.0) % Potassium (3.5-5.1) mmol/L Chloride (98-107) mmol/L Creatinine (0.66-1.25) mg/dL POC Glucose (mg/dL) 56 L (70-110) mg/dL Hemoglobin A1c 8.8 H (<=6.0) % Alkaline Phosphatase (38-126) U/L Total Protein (6.3-8.2) g/dL Albumin (3.5-5.0) g/dL 09/02/23 09/02/23 09/02/23 Range/Units 06:19 11:48 14:16 Hgb (13.0-17.5) gm/dL Hct (39.0-53.0) % Potassium 3.2 L (3.5-5.1) mmol/L Chloride 109 H (98-107) mmol/L Creatinine 0.64 L (0.66-1.25) mg/dL POC Glucose (mg/dL) 113 H 233 H (70-110) mg/dL Hemoglobin A1c (<=6.0) % Alkaline Phosphatase 134 H (38-126) U/L Total Protein 5.5 L (6.3-8.2) g/dL Albumin 2.5 L (3.5-5.0) g/dL 09/02/23 09/02/23 Range/Units 15:57 18:10 Hgb (13.0-17.5) gm/dL Hct (39.0-53.0) % Potassium (3.5-5.1) mmol/L Chloride (98-107) mmol/L Creatinine (0.66-1.25) mg/dL POC Glucose (mg/dL) 243 H 222 H (70-110) mg/dL Hemoglobin A1c (<=6.0) % Alkaline Phosphatase (38-126) U/L Total Protein (6.3-8.2) g/dL Albumin (3.5-5.0) g/dL Assessment and Plan Assessment: * Acute episode of unresponsiveness, likely due to hypoglycemia. Patient's blood sugar was 44 at that time. After giving glucose, patient's mentation improved, but had right gaze preference, and right-sided weakness noticed by the EMS staff. All symptoms resolved by the time patient arrived to the ER. At present his NIH stroke scale is 0. * Altered mental status, likely due to acute hypoglycemia--Mentation improved and no further deficits. CT head X2 is negative. I cannot rule out TIA because of risk factors but feel more related due to hypoglycemia * Hypokalemia * Hyperlipidemia * Hypertension * Diabetes * History of prostate cancer * Ex tobacco use * Pacemaker Plan: * Patient cannot have MRI because of presence of pacemaker. * 2-D echo with bubble study to rule out PFO is recommend by Dr. Babb but I do not see an order and will order it. * CTA head and neck showed: No dissection, hemodynamically significant stenosis or pseudoaneurysm detected in the carotid or vertebral arteries in the neck. Mild atherosclerotic calcifications at the carotid bifurcations. Moderate atherosclerotic calcification along the aortic arch without evidence of dissection. Partially seen ascending aorta appears dilated up to 4.1 cm. CTA of the head showed mild atherosclerotic disease otherwise normal. * Repeat CT head is reported as no acute intracranial hemorrhage, midline shift or mass effect. * Fasting a.m. lipid panel: Triglyceride 58, cholesterol is 109, LDL 67 and HDL 40. * Hemoglobin A1c: 8.8 * Optimize control of blood pressure * Patient was given aspirin 324 mg in the ER, and started on aspirin 81 mg daily. He is also on the Lipitor for milligram daily. * Neuro checks every 4 hours * Telemetry monitoring rule out any arrhythmia * PT, OT * DVT prophylaxis: Lovenox Otherwise no additional neurological work-up besides echo. If echo is negative and no further episodes, then clear for discharge from neurological perspective. Time with Patient: Less than 30
[2023-09-02 20:25] LABS: Glucose,Whole Blood 152 mg/dL (70-110)
--- NOTE | 2023-09-02 21:12 | P.CONS ---
History of Present Illness - Reason for Consult Consult date: 09/02/23 new diagnosis of malignancy Requesting physician: Stanton Hall - Chief Complaint AMS - History of Present Illness Mr. Overton is an 82-year-old male patient with PMH of third degree heart block, pacemaker placement, DM type II, HTN and dyslipidemia, brought to ER by EMS for AMS, unable to be aroused at home. Patient's blood glucose was in the 40s., Blood sugar improved but his mental status did not. He had right sided hemiparesis on arrival to the hospital, code stroke called. Nothing found on CTs of the head. Patient is doing well when seen today, he denied any specific complaints, he was able to explain what happened prior to his diagnosis of GI malignancy. He reports that he was flying to [place], had severe abdominal pain on the plane. When they got off the plane he was taken to the hospital for evaluation. He had colectomy 08/05/23. He states he was told that he had cancer and that is was also in his liver. He was due to be seen in our office in 2 days for his first visit He has no acute c/o today. His midline abd incision is healing well at this time. No s/s infection. Review of Systems 10 point ROS is neg except as stated in HPI Past Medical History Past Medical History: Cancer, Diabetes Mellitus, GERD/Reflux, Hypertension Additional Past Medical History / Comment(s): heart murmur, prostate cancer with radiation History of Any Multi-Drug Resistant Organisms: None Reported Past Surgical History: Hernia Repair, Joint Replacement, Orthopedic Surgery Additional Past Surgical History / Comment(s): esophageal surgery, lt ankle surgery,lt knee replacement Past Anesthesia/Blood Transfusion Reactions: No Reported Reaction Past Psychological History: Anxiety, Depression Smoking Status: Former smoker Past Alcohol Use History: None Reported Additional Past Alcohol Use History / Comment(s): smoker for 20 years 1-2 ppd quit 1979 Past Drug Use History: None Reported - Past Family History Mother Family Medical History: Hypertension Medications and Allergies Home Medications Medication Instructions Recorded Confirmed Type Atorvastatin [Lipitor] 80 mg PO DAILY 04/14/20 08/31/23 History Donepezil [Aricept] 10 mg PO HS 04/14/20 08/31/23 History INSULIN LISPRO (humaLOG) [humaLOG] 12 units SQ BID-W/MEALS 04/14/20 08/31/23 History INSULIN LISPRO (humaLOG) [humaLOG] 16 units SQ AC-LUNCH 04/14/20 08/31/23 History Insulin Glargine,Hum.rec.anlog 68 units SQ DAILY 04/14/20 08/31/23 History [Toujeo Solostar] Losartan Potassium [Cozaar] 100 mg PO HS 04/14/20 08/31/23 History Multivitamins, Thera [Multivitamin 1 tab PO DAILY 04/14/20 08/31/23 History (formulary)] Oxybutynin Chloride [oxyBUTYnin 10 mg PO DAILY 04/14/20 08/31/23 History chloride ER] Sertraline [Zoloft] 50 mg PO DAILY 04/14/20 08/31/23 History amLODIPine BESYLATE 10 mg PO DAILY 04/14/20 08/31/23 History Allergies Allergy/AdvReac Type Severity Reaction Status Date / Time No Known Allergies Allergy Verified 08/31/23 21:32 Physical Exam Vitals: Vital Signs Temp Pulse Resp BP Pulse Ox 09/02/23 04:15 69 16 155/76 99 09/01/23 23:52 59 L 18 161/73 98 09/01/23 22:30 61 18 134/73 97 09/01/23 20:14 98.1 F 61 18 150/68 97 09/01/23 15:29 98 F 69 16 122/66 97 09/01/23 12:00 98.4 F 72 12 145/67 98 09/01/23 09:43 96 Intake and Output 09/01/23 09/02/23 09/02/23 22:59 06:59 14:59 Intake Total 360 540 Balance 360 540 Intake: Oral 360 540 Other: Voiding Method Diaper Diaper External Catheter External Catheter # Voids 1 # Bowel Movements 1 - Constitutional General appearance: cooperative, no acute distress, obese - EENT Eyes: anicteric sclerae ENT: hearing grossly normal, normal oropharynx - Neck Neck: no lymphadenopathy - Respiratory Respiratory: bilateral: CTA - Cardiovascular Rhythm: regular Heart sounds: normal: S1, S2 Abnormal Heart Sounds: no systolic murmur, no diastolic murmur, no rub, no S3 Gallop, no S4 Gallop, no click, no other leg Peripheral Edema: bilateral: None - Gastrointestinal midline incision well approximated, no s/s infection, no drainage General gastrointestinal: normal bowel sounds, soft - Integumentary Integumentary: normal - Neurologic Neurologic: CNII-XII intact - Musculoskeletal Musculoskeletal: generalized weakness, strength equal bilaterally - Psychiatric Psychiatric: A&O x's 3, appropriate affect, intact judgment & insight Results CBC & Chem 7: 09/02/23 06:19 09/02/23 06:19 Labs: Abnormal Lab Results - Last 24 Hours (Table) 09/01/23 09/01/23 09/01/23 Range/Units 09:55 10:15 12:46 WBC 13.9 H (3.8-10.6) k/uL Hgb 12.6 L (13.0-17.5) gm/dL Hct (39.0-53.0) % Potassium (3.5-5.1) mmol/L Chloride (98-107) mmol/L Carbon Dioxide (22-30) mmol/L Creatinine (0.66-1.25) mg/dL Glucose (74-99) mg/dL POC Glucose (mg/dL) 43 L 43 L (70-110) mg/dL Hemoglobin A1c (<=6.0) % Alkaline Phosphatase (38-126) U/L Total Protein (6.3-8.2) g/dL Albumin (3.5-5.0) g/dL 09/01/23 09/01/23 09/01/23 Range/Units 12:46 12:46 14:03 WBC (3.8-10.6) k/uL Hgb (13.0-17.5) gm/dL Hct (39.0-53.0) % Potassium (3.5-5.1) mmol/L Chloride 109 H (98-107) mmol/L Carbon Dioxide 18 L (22-30) mmol/L Creatinine 0.61 L (0.66-1.25) mg/dL Glucose 144 H (74-99) mg/dL POC Glucose (mg/dL) 160 H (70-110) mg/dL Hemoglobin A1c 8.8 H (<=6.0) % Alkaline Phosphatase 127 H (38-126) U/L Total Protein 6.0 L (6.3-8.2) g/dL Albumin 2.7 L (3.5-5.0) g/dL 09/02/23 09/02/23 09/02/23 Range/Units 02:03 06:19 06:19 WBC (3.8-10.6) k/uL Hgb 12.4 L (13.0-17.5) gm/dL Hct 38.9 L (39.0-53.0) % Potassium 3.2 L (3.5-5.1) mmol/L Chloride 109 H (98-107) mmol/L Carbon Dioxide (22-30) mmol/L Creatinine 0.64 L (0.66-1.25) mg/dL Glucose (74-99) mg/dL POC Glucose (mg/dL) 56 L (70-110) mg/dL Hemoglobin A1c (<=6.0) % Alkaline Phosphatase 134 H (38-126) U/L Total Protein 5.5 L (6.3-8.2) g/dL Albumin 2.5 L (3.5-5.0) g/dL CT Scan - head: report reviewed Assessment and Plan (1) Altered mental status Current Visit: Yes Status: Acute Priority: High Code(s): R41.82 - ALTERED MENTAL STATUS, UNSPECIFIED SNOMED Code(s): 178943116 (2) Hypoglycemia Current Visit: Yes Status: Acute Priority: High Code(s): E16.2 - HYPOGLYCEMIA, UNSPECIFIED SNOMED Code(s): 525188394 Plan: Altered mental status and severe hypoglycemia -Reason for admit -Likely connected -Nephrology and internal medicine following and treating patient GI malignancy with liver metastases -Patient is due to meet with Medical Oncologist in 2 days for 1st visit. -Will review what has been sent by hospital in [facility] and summarize into chart in an addendum -No treatment for malignancy would begin until pt is adequately healed form surgery-usually 4-6 weeks -NGS and PDL1 testing will be requested on specimen Doctor attests: I performed a history and physical examination of this patient, developed impression and plan of care. Discussed with dictator. I agree with dictators note, documented as a scribe.
[2023-09-02 21:51] LABS: Glucose,Whole Blood 155 mg/dL (70-110)
[2023-09-02 23:53] LABS: Glucose,Whole Blood 221 mg/dL (70-110)
[2023-09-03 02:00] LABS: Glucose,Whole Blood 195 mg/dL (70-110)
[2023-09-03 03:54] LABS: Glucose,Whole Blood 178 mg/dL (70-110)
[2023-09-03 05:50] LABS: Glucose,Whole Blood 221 mg/dL (70-110)
[2023-09-03 06:55] LABS: HCT 37.8 % (39.0-53.0); Hypochromasia Moderate; MCH 28.1 pg (25.0-35.0); MCHC 31.8 g/dL (31.0-37.0); MCV 88.2 fL (80.0-100.0); Mean Platelet Volume 8.2; Platelet Count 195 k/uL (150-450); RBC 4.28 m/uL (4.30-5.90); RDW 14.9 % (11.5-15.5); WBC 6.7 k/uL (3.8-10.6)
[2023-09-03 08:02] LABS: Glucose,Whole Blood 227 mg/dL (70-110)
[2023-09-03 08:55] LABS: ALT 13 U/L (4-49); AST 18 U/L (17-59); African American GFR (CKD) >90 (>60 ml/min/1.73 sqM); Albumin 2.4 g/dL (3.5-5.0); Alkaline Phosphatase 144 U/L (38-126); Anion Gap 3 mmol/L; Blood Urea Nitrogen 13 mg/dL (9-20); Calcium 8.7 mg/dL (8.4-10.2); Carbon Dioxide 26 mmol/L (22-30); Chloride 110 mmol/L (98-107); Glucose 210 mg/dL (74-99); Magnesium 1.8 mg/dL (1.6-2.3); Non-African American GFR(CKD) 88 (>60 ml/min/1.73 sqM); Potassium 3.5 mmol/L (3.5-5.1); Sodium 139 mmol/L (137-145); Total Bilirubin 0.8 mg/dL (0.2-1.3); Total Protein 5.5 g/dL (6.3-8.2)
[2023-09-03 10:14] LABS: Glucose,Whole Blood 230 mg/dL (70-110)
--- NOTE | 2023-09-03 10:25 | P.CONS ---
History of Present Illness - Reason for Consult Consult date: 09/03/23 wound care - History of Present Illness This is an 82-year-old patient who was on vacation and found to have incarcerated bowel. He underwent a colectomy that has been reversed. He has an open ulceration to the abdomen that previously had a negative pressure wound VAC. All of this was done while he was on vacation in [place]. He was also found to have carcinoma of the liver. He has not started any treatment on that. Patient does have history of diabetes. The date acquired was: 08/05/2023. The wound is currently classified as a Full Thickness Without Exposed Support Structures wound with etiology of Open Surgical Wound and is located on the Right Abdomen - midline. The wound measures 10.1cm length x 3cm width x 1.5cm depth; 23.798cm^2 area and 35.696cm^3 volume. There is Fat Layer (Subcutaneous Tissue) exposed. There is no tunneling or undermining noted. There is a medium amount of sanguinous drainage noted. The wound margin is well defined and not attached to the wound base. There is large (67-100%) red granulation within the wound bed. There is a small (1-33%) amount of necrotic tissue within the wound bed including Adherent Slough. The periwound skin appearance exhibited: Scarring. The periwound skin appearance did not exhibit: Callus, Crepitus, Excoriation, Induration, Rash, Dry/Scaly, Maceration, Atrophie [place], Cyanosis, Ecchymosis, Hemosiderin Staining, Mottled, Pallor, Rubor, Erythema. Th e periwound has tenderness on palpation. Review Of Systems: Constitutional: No fever, no chills, no night sweats. No weight change. No weakness, fatigue or lethargy. No daytime sleepiness. Integumentary:reports wounds, no lesions. No rash or pruritus. No unusual bruising. No change in hair or nails. Physical exam: General Appearance: Alert, cooperative, no distress, appears stated age. Skin: See HPI all other Skin color, texture, tugor normal, no rashes or lesions. Neurologic: Alert oriented x3 Assessment: 1. Non-pressure chronic ulcer of skin of other sites with muscle involvement wi thout evidence of necrosis 2. Disruption of external operation (surgical) wound, not elsewhere classified, initial encounter 3. Type 2 diabetes mellitus with other skin ulcer 4. Liver cell carcinoma Plan: 1. Apply wet-to-dry dressing to the site until negative pressure wound VAC is available. Apply negative pressure wound VAC at 125 mmHg with black foam continuous pressure. Changing Saturday-day Saturday. Patient will return to the wound care center on September 10 at 3:00. Thank you for the consultation any questions please contact the wound care center DNP note has been reviewed and discussed with Dr. Stoddard and the impression and plan of care has been directed as dictated. Past Medical History Past Medical History: Cancer, Diabetes Mellitus, GERD/Reflux, Hypertension Additional Past Medical History / Comment(s): heart murmur, prostate cancer with radiation History of Any Multi-Drug Resistant Organisms: None Reported Past Surgical History: Hernia Repair, Joint Replacement, Orthopedic Surgery Additional Past Surgical History / Comment(s): esophageal surgery, lt ankle surgery,lt knee replacement Past Anesthesia/Blood Transfusion Reactions: No Reported Reaction Past Psychological History: Anxiety, Depression Smoking Status: Former smoker Past Alcohol Use History: None Reported Additional Past Alcohol Use History / Comment(s): smoker for 20 years 1-2 ppd quit 1979 Past Drug Use History: None Reported - Past Family History Mother Family Medical History: Hypertension Medications and Allergies Home Medications Medication Instructions Recorded Confirmed Type Atorvastatin [Lipitor] 80 mg PO DAILY 04/14/20 08/31/23 History Donepezil [Aricept] 10 mg PO HS 04/14/20 08/31/23 History INSULIN LISPRO (humaLOG) [humaLOG] 12 units SQ BID-W/MEALS 04/14/20 08/31/23 History INSULIN LISPRO (humaLOG) [humaLOG] 16 units SQ AC-LUNCH 04/14/20 08/31/23 History Insulin Glargine,Hum.rec.anlog 68 units SQ DAILY 04/14/20 08/31/23 History [Toujeo Solostar] Losartan Potassium [Cozaar] 100 mg PO HS 04/14/20 08/31/23 History Multivitamins, Thera [Multivitamin 1 tab PO DAILY 04/14/20 08/31/23 History (formulary)] Oxybutynin Chloride [oxyBUTYnin 10 mg PO DAILY 04/14/20 08/31/23 History chloride ER] Sertraline [Zoloft] 50 mg PO DAILY 04/14/20 08/31/23 History amLODIPine BESYLATE 10 mg PO DAILY 04/14/20 08/31/23 History Allergies Allergy/AdvReac Type Severity Reaction Status Date / Time No Known Allergies Allergy Verified 08/31/23 21:32 Physical Exam Vitals: Vital Signs Temp Pulse Resp BP Pulse Ox 09/03/23 07:54 97.7 F 64 18 118/74 97 09/03/23 04:00 97.9 F 68 18 134/67 98 09/03/23 00:21 138/84 09/02/23 23:48 98.5 F 60 18 162/112 95 09/02/23 20:00 60 09/02/23 19:49 97.9 F 71 18 144/73 95 09/02/23 16:00 98.8 F 74 18 157/69 95 09/02/23 14:00 66 18 09/02/23 12:00 98.8 F 66 18 127/69 96 Intake and Output 09/02/23 09/03/23 09/03/23 22:59 06:59 14:59 Intake Total 120 230 Balance 120 230 Intake: Oral 120 230 Other: Voiding Method Diaper Diaper Incontinent Incontinent External Catheter External Catheter # Voids 1 # Bowel Movements 2 Results CBC & Chem 7: 09/03/23 06:38 09/03/23 07:42 Labs: Abnormal Lab Results - Last 24 Hours (Table) 09/02/23 09/02/23 09/02/23 Range/Units 11:48 14:16 15:57 RBC (4.30-5.90) m/uL Hgb (13.0-17.5) gm/dL Hct (39.0-53.0) % Chloride (98-107) mmol/L Glucose (74-99) mg/dL POC Glucose (mg/dL) 113 H 233 H 243 H (70-110) mg/dL Alkaline Phosphatase (38-126) U/L Total Protein (6.3-8.2) g/dL Albumin (3.5-5.0) g/dL 09/02/23 09/02/23 09/02/23 Range/Units 18:10 20:24 21:50 RBC (4.30-5.90) m/uL Hgb (13.0-17.5) gm/dL Hct (39.0-53.0) % Chloride (98-107) mmol/L Glucose (74-99) mg/dL POC Glucose (mg/dL) 222 H 152 H 155 H (70-110) mg/dL Alkaline Phosphatase (38-126) U/L Total Protein (6.3-8.2) g/dL Albumin (3.5-5.0) g/dL 09/02/23 09/03/23 09/03/23 Range/Units 23:51 01:57 03:52 RBC (4.30-5.90) m/uL Hgb (13.0-17.5) gm/dL Hct (39.0-53.0) % Chloride (98-107) mmol/L Glucose (74-99) mg/dL POC Glucose (mg/dL) 221 H 195 H 178 H (70-110) mg/dL Alkaline Phosphatase (38-126) U/L Total Protein (6.3-8.2) g/dL Albumin (3.5-5.0) g/dL 09/03/23 09/03/23 09/03/23 Range/Units 05:48 06:38 07:42 RBC 4.28 L (4.30-5.90) m/uL Hgb 12.0 L (13.0-17.5) gm/dL Hct 37.8 L (39.0-53.0) % Chloride 110 H (98-107) mmol/L Glucose 210 H (74-99) mg/dL POC Glucose (mg/dL) 221 H (70-110) mg/dL Alkaline Phosphatase 144 H (38-126) U/L Total Protein 5.5 L (6.3-8.2) g/dL Albumin 2.4 L (3.5-5.0) g/dL 09/03/23 09/03/23 Range/Units 08:00 10:12 RBC (4.30-5.90) m/uL Hgb (13.0-17.5) gm/dL Hct (39.0-53.0) % Chloride (98-107) mmol/L Glucose (74-99) mg/dL POC Glucose (mg/dL) 227 H 230 H (70-110) mg/dL Alkaline Phosphatase (38-126) U/L Total Protein (6.3-8.2) g/dL Albumin (3.5-5.0) g/dL Assessment and Plan (1) Non-pressure chronic ulcer of skin of other sites with muscle involvement without evidence of necrosis Current Visit: Yes Status: Acute Code(s): L98.495 - NON-PRS CHR ULC SKIN/ OTH SITE WITH MSL INVL W/O EVD OF NECR SNOMED Code(s): 54216155 (2) Disruption of external operation (surgical) wound, not elsewhere classified, initial encounter Current Visit: Yes Status: Acute Code(s): T81.31XA - DISRUPTION OF EXTERNAL OPERATION (SURGICAL) WOUND, NEC, INIT SNOMED Code(s): 267404923868015 (3) Type 2 diabetes mellitus with other skin ulcer Current Visit: Yes Status: Acute Code(s): E11.622 - TYPE 2 DIABETES MELLITUS WITH OTHER SKIN ULCER; L98.499 - NON-PRESSURE CHRONIC ULCER OF SKIN OF SITES W UNSP SEVERITY SNOMED Code(s): 808207904 (4) Liver cell carcinoma Current Visit: Yes Status: Acute Code(s): C22.0 - LIVER CELL CARCINOMA SNOMED Code(s): 203448227
[2023-09-03 11:57] LABS: Glucose,Whole Blood 177 mg/dL (70-110)
--- NOTE | 2023-09-03 14:28 | CA ---
Transthoracic Echo Report Name: Shai Thurston Age: 82 Gender: M : 1940 Exam Date: 09/03/2023 10:40 Exam Location: [facility] Ht (in): 72 Wt (lb): 187 Ordering Physician: Jared Brenner MD Attending/Referring Phys: New Account Interviewer Lalo Roca RD Procedure CPT: Indications: stroke Cardiac Hx: Technical Quality: Fair Contrast 1: Total Dose (mL): Contrast 2: Total Dose (mL): MEASUREMENTS (Male / Female) Normal Values 2D ECHO LV Diastolic Diameter PLAX 4.6 cm 4.2 - 5.9 / 3.9 - 5.3 cm LV Systolic Diameter PLAX 3.1 cm IVS Diastolic Thickness 1.3 cm 0.6 - 1.0 / 0.6 - 0.9 cm LVPW Diastolic Thickness 1.4 cm 0.6 - 1.0 / 0.6 - 0.9 cm LV Relative Wall Thickness 0.6 RV Internal Dim ED PLAX 3.4 cm LVOT Diameter 2.7 cm Aortic Root Diameter 3.7 cm LA Systolic Diameter LX 2.0 cm 3.0 - 4.0 / 2.7 - 3.8 cm LV Diastolic Volume MOD BP 51.3 cm??? 67 - 155 / 56 - 104 cm??? LV Systolic Volume MOD BP 25.0 cm??? 22 - 58 / 19 - 49 cm??? LV Ejection Fraction MOD BP 51.2 % >= 55 % LV Cardiac Index MOD BP 768.3 cm???/min???m??? LV Diastolic Volume MOD 4C 61.3 cm??? LV Systolic Volume MOD 4C 25.5 cm??? LV Ejection Fraction MOD 4C 58.5 % LV Cardiac Index MOD 4C 1049.9 cm???/min???m??? LV Diastolic Length 4C 7.3 cm LV Systolic Length 4C 6.4 cm LV Diastolic Volume MOD 2C 40.4 cm??? LV Systolic Volume MOD 2C 24.7 cm??? LV Ejection Fraction MOD 2C 38.9 % LV Cardiac Index MOD 2C 460.2 cm???/min???m??? LV Diastolic Length 2C 6.9 cm LV Systolic Length 2C 6.4 cm LA Volume 45.0 cm??? 18 - 58 / 22 - 52 cm??? LA Volume Index 21.6 cm???/m??? 16 - 28 cm???/m??? Ascending Aorta Diameter 3.6 cm DOPPLER AV Peak Velocity 100.0 cm/s AV Peak Gradient 4.0 mmHg AV Mean Velocity 61.3 cm/s AV Mean Gradient 1.9 mmHg AV Velocity Time Integral 24.0 cm AI Peak Velocity 314.0 cm/s AI Peak Gradient 39.4 mmHg AI Pressure Half Time 1286.8 ms LVOT Peak Velocity 87.7 cm/s LVOT Peak Gradient 3.1 mmHg LVOT Velocity Time Integral 19.5 cm LVOT Stroke Volume 114.3 cm??? LVOT Stroke Volume Index 55.2 ml/m??? LVOT Cardiac Index 3346.8 cm???/min???m??? AV Area Cont Eq vti 4.8 cm??? AV Area Cont Eq pk 5.1 cm??? MV Peak Velocity 122.7 cm/s MV Peak Gradient 6.0 mmHg MV Mean Velocity 58.8 cm/s MV Mean Gradient 1.8 mmHg MV Velocity Time Integral 43.1 cm Mitral E Point Velocity 59.1 cm/s Mitral A Point Velocity 117.6 cm/s Mitral E to A Ratio 0.5 MV Deceleration Time 393.9 ms MV E' Velocity 7.1 cm/s Mitral E to MV E' Ratio 8.4 TR Peak Velocity 217.0 cm/s TR Peak Gradient 18.8 mmHg Right Ventricular Systolic Press 23.8 mmHg PV Peak Velocity 107.7 cm/s PV Peak Gradient 4.6 mmHg FINDINGS Left Ventricle Normal LV size and wall thickness. Right Ventricle Normal right ventricular size. Right Atrium Normal right atrial size. Left Atrium Normal left atrial size. Negative agitated saline study. Mitral Valve Mild to moderate posterior leaflet calcification.no mitral stenosis. No mitral regurgitation. Aortic Valve Aortic valve not well visualized. Mild to moderate calcification. Suboptimal angles however appears to have mild to moderate aortic stenosis with decreased leaflet excursion. Moderate AI. Tricuspid Valve Tricuspid valve not well visualized. Trace TR. Pulmonic Valve Pulmonic valve not well visualized. Mild PI. Pericardium Not visualized well. Aorta Normal size aortic root. CONCLUSIONS Negative bubble study. Normal left ventricular ejection fraction 55% Asymmetric septal hypertrophy Moderate aortic regurgitation Decreased aortic leaflet excursion with no significant aortic stenosis by gradients however may be somewhat off axis Previewed by: Dr. Du Marcum DO (Electronically Signed) Final Date: 03 September 2023 14:27
--- NOTE | 2023-09-03 15:56 | P.PN ---
Subjective Progress Note Date: 09/03/23 Hospital course: Patient is a very pleasant 82-year-old male with a past medical history of recently diagnosed metastatic abdominal malignancy status post colectomy in [place] on 08/05/2023 and following outpatient with Dr. 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 He presented to the emergency department on 08/31/2023 via EMS for reports of altered mental status. Per documentation in chart patient reported to and daughter that he was not feeling well and laid down to take a nap and when they attempted to wake him a couple hours later he was unresponsive so they called EMS. Patient was reportedly found to be hypoglycemic with blood glucose in the 40s and was provided with D50 resulting in improving blood glucose levels without significant improvement in patient's mental status. Upon arrival to the emergency department patient was found to have significant right-sided hemiparesis and a stroke code was called. CT brain was completed negative for acute intracranial process showing moderate atrophy and chronic microvascular ischemic changes. CTA head was negative for acute process showing no intracranial large vessel occlusion, significant stenosis, or sizable aneurysm detected revealing only mild atherosclerotic disease. CTA neck also negative for acute process revealing mild atherosclerotic calcifications at the carotid bifurcations and moderate atherosclerotic calcification along the aortic arch without evidence of dissection but did reveal a dilated ascending aorta measuring up to 4.1 cm. EKG was completed showing a ventricular paced rhythm at 75 bpm. Chest x-ray completed negative for acute cardiopulmonary process but did reveal findings that patient's left chest dual-lead pacemaker appeared slightly rotated compared to previous position but did report lead tips do not appear significantly changed in their position. Labs were completed and reviewed. CBC showing mild anemia with hemoglobin of 12.8. BMP revealing critical hypokalemia with potassium of 2.3, glucose 119. Magnesium also low at 1.3. Liver profile showing elevated alkaline phosphatase of 128 otherwise normal findings. Troponin was 0.034. Urinalysis negative for infection, urine drug screen negative, and serum alcohol also negative. Patient's mentation and weakness gradually improved in the emergency department but he was still not at his reported baseline per family. Patient with recurrent episodes of hypoglycemia, has had no further episodes of right-sided hemiparesis or any other noted neurological abnormalities. Physical exam: Patient seen and fully evaluated at bedside this morning,. His blood glucose levels have been better controlled on D5 infusion averaging around 200 overnight and this morning. D5 infusion discontinued and patient's blood glucose levels t o be continued to be monitored closely. Vital signs reviewed and stable. General: Nontoxic, no distress and appears stated age. Derm: Skin warm and dry, normal coloration for ethnicity. Head: Atraumatic, normocephalic and symmetric. Eyes: EOMs intact, no lid lag, and anicteric sclera Mouth: no lip lesions, mucus membranes moist Cardiovascular: regular rate and rhythm with normal S1S2, systolic murmur, positive posterior tibial pulses bilaterally, and cap refill < 2 seconds. Lungs: Respirations even, regular, and unlabored on room air. Lungs CTA bilaterally, no rhonchi, no rales, no wheezing, and no accessory muscle usage. Abdominal: soft, nontender to palpation, no guarding, no appreciable organomegaly. Wound VAC midline abdomen with no erythema surrounding Ext: ROM intact. No gross muscle atrophy, no edema, no contractures Neuro: Speech clear, face symmetrical and CN II-XII grossly intact with no noted focal neuro deficits Psych: Alert and oriented to person, place, and situation. Appropriate and pleasant affect. Assessment and Plan of Care: Acute metabolic encephalopathy, secondary to recurrent episodes of hypoglycemia and electrolyte imbalances Right-sided hemiparesis, improved. Rule out TIA vs CVA Hypoglycemia, recurrent episodes. Believed to be secondary to previous home administration of long-acting insulin Toujeo. Patient is a type 2 insulin- dependent diabetic. Hypokalemia Hypomagnesemia Hypoalbuminemia Severe protein calorie malnourishment -Continue aspirin 81 mg daily and atorvastatin 80 mg daily. -Continue NIH assessment with neurochecks every 4 hours -Blood glucose levels averaging around 200 throughout the night and morning on D5 infusion and D5 0.9 infusion discontinued at this time and we will continue to monitor closely to evaluate how well glucose levels do without D5 infusion. -Patient to continue glycemic protocol with dextrose D5 25 mL ( 1/2 amp) to be administered for blood glucose 50-70 and D5 50 mL ( 1 amp) to be administered for blood glucose less than 50. -Patient to remain on continuous telemetry monitoring. -Neurology consulted, appreciate recommendations. -Continue blood glucose checks every 4 hours. -Hemoglobin A1c 8.8%. -Lipid profile unremarkable. -Consult placed to dietitian for poor oral intake and patient to continue protein supplements 3 times daily between meals. -Echocardiogram completed and pending results. Dilated ascending aortic root -CTA revealing dilated ascending aortic root up to 4.1 cm and upon further evaluation echocardiogram completed 04/08/2023 shows previously noted finding unchanged with echo reporting moderately dilated ascending aortic root 4.3 cm -Continue to follow-up outpatient with referral clerk for long-term monitoring and/or management if indicated. Metastatic abdominal malignancy status post colectomy 08/05/2023 -Wound care following for continued management of wound VAC. -Consult placed to patient's oncologist, Dr. Childress. Hypertension Hyperlipidemia History of third-degree heart block status post permanent pacemaker placement -Continue daily medication regimen with amlodipine 10 mg daily, 81 mg daily, atorvastatin 80 mg, and losartan 100 mg nightly. Dementia Anxiety and depression Continue daily medication regimen with Aricept 10 mg nightly and sertraline 50 mg daily. Data and imaging reviewed: -CBC showing stable normocytic anemia with hemoglobin of 12.0. BMP showing resolution of hypokalemia with morning potassium of 3.5 and normal magnesium of 1.8. -Vital signs reviewed and stable with blood pressure 118/74, heart rate 64, respiratory rate 18, temp 97.7 F, CODE STATUS: Full code DVT prophylaxis: Lovenox Anticipated discharge date: Clinical course to determine Anticipated discharge place: Clinical course to determine Patient was seen independently by Nurse Pracitioner. This document was prepared using [employer] dictation software. Please allow for errors in upper and bottom lacer hand, while rare they do occur. Objective - Vital Signs Vital signs: Vital Signs Temp 97.7 F 09/03/23 07:54 Pulse 64 09/03/23 07:54 Resp 18 09/03/23 07:54 BP 118/74 09/03/23 07:54 Pulse Ox 97 09/03/23 07:54 FiO2 Intake & Output 09/02/23 09/03/23 09/03/23 18:59 06:59 18:59 Intake Total 360 230 Balance 360 230 Weight 84.867 kg Intake: Oral 360 230 Other: Voiding Method Diaper Diaper Incontinent Incontinent External Catheter External Catheter # Voids 2 1 # Bowel Movements 2 - Labs CBC & Chem 7: 09/03/23 06:38 02/13/24 07:42 Labs: Abnormal Lab Results - Last 24 Hours (Table) 09/02/23 09/02/23 09/02/23 Range/Units 11:48 14:16 15:57 RBC (4.30-5.90) m/uL Hgb (13.0-17.5) gm/dL Hct (39.0-53.0) % POC Glucose (mg/dL) 113 H 233 H 243 H (70-110) mg/dL 09/02/23 09/02/23 09/02/23 Range/Units 18:10 20:24 21:50 RBC (4.30-5.90) m/uL Hgb (13.0-17.5) gm/dL Hct (39.0-53.0) % POC Glucose (mg/dL) 222 H 152 H 155 H (70-110) mg/dL 09/02/23 09/03/23 09/03/23 Range/Units 23:51 01:57 03:52 RBC (4.30-5.90) m/uL Hgb (13.0-17.5) gm/dL Hct (39.0-53.0) % POC Glucose (mg/dL) 221 H 195 H 178 H (70-110) mg/dL 09/03/23 09/03/23 09/03/23 Range/Units 05:48 06:38 08:00 RBC 4.28 L (4.30-5.90) m/uL Hgb 12.0 L (13.0-17.5) gm/dL Hct 37.8 L (39.0-53.0) % POC Glucose (mg/dL) 221 H 227 H (70-110) mg/dL
[2023-09-03 16:30] LABS: Glucose,Whole Blood 296 mg/dL (70-110)
[2023-09-03 20:21] LABS: Glucose,Whole Blood 268 mg/dL (70-110)
[2023-09-04 05:52] LABS: Glucose,Whole Blood 163 mg/dL (70-110)
[2023-09-04 07:29] VITALS: BP 128/76; PULSE 71; RESP 18; TEMP 97.8
--- NOTE | 2023-09-04 10:54 | P.DS ---
Providers Date of admission: 09/01/23 12:18 Expected date of discharge: 09/04/23 Attending physician: Isaac Rosen MD Consults: 08/31/23 21:58 Consult Physician Urgent Consulting Provider: Rachele Babb Consult Reason/Comments: transient altered mental status and right hemiparesis Do you want consulting provider notified?: Yes 09/01/23 12:23 Consult Physician Routine Consulting Provider: Martin Childress Consult Reason/Comments: metastatic abd malignancy s/p colectomy, follows you in office Do you want consulting provider notified?: Yes Primary care physician: Bonnie Barraza MD Hospital Course: 82-year-old male with a past medical history of 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 Per documentation in chart patient reported to and daughter that he was not feeling well and laid down to take a nap and when they attempted to wake him a couple hours later he was unresponsive so they called EMS. Patient was reportedly found to be hypoglycemic with blood glucose in the 40s and was provided with D50 resulting in improving blood glucose levels without significant improvement in patient's mental status. Upon arrival to the emergency department patient was found to have significant right-sided hemiparesis and a stroke code was called. CT brain was completed negative for acute intracranial process showing moderate atrophy and chronic microvascular ischemic changes. CTA head was negative for acute process showing no intracranial large vessel occlusion, significant stenosis, or sizable aneurysm detected revealing only mild atherosclerotic disease. CTA neck also negative for acute process revealing mild atherosclerotic calcifications at the carotid bifurcations and moderate atherosclerotic calcification along the aortic arch without evidence of dissection but did reveal a dilated ascending aorta measuring up to 4.1 cm. EKG was completed showing a ventricular paced rhythm at 75 bpm. Chest x-ray completed negative for acute cardiopulmonary process but did reveal findings that patient's left chest dual-lead pacemaker appeared slightly rotated compared to previous position but did report lead tips do not appear significantly changed in their position. CBC showing hemoglobin of 12.8. BMP potassium of 2.3, glucose 119. Magnesium also low at 1.3. Liver profile showing elevated alkaline phosphatase of 128 otherwise normal findings. Troponin was 0.034. Urinalysis negative for infection Urine drug screen negative Serum alcohol negative. Potassium was replaced. His insulin was held and hypoglycemia resolved. Patient's mentation and weakness gradually improved back to baseline. 09/04 Patient was seen and examined. No complaints. Wanting to be discharged because he has a follow up appointment with his Oncologist. He is advised to eat 3 meals a day with snacks in between. He was advised is decrease his long acting insulin to 24 units QD and short acting insulin to 8 units TID with meals. He is advised to check his blood sugar atleast 3 times a day to keep a log to be followed up with his PCP for further titration. He is advised to hypoglycemic symptoms. Patient verbalized understanding of the plan. Vital signs reviewed and stable. General: Nontoxic, no distress and appears stated age. Derm: Skin warm and dry, normal coloration for ethnicity. Head: Atraumatic, normocephalic and symmetric. Eyes: EOMs intact, no lid lag, and anicteric sclera Cardiovascular: regular rate and rhythm with normal S1S2, systolic murmur Lungs: Respirations even, regular, and unlabored on room air. Lungs CTA bilaterally, no rhonchi, no rales, no wheezing, and no accessory muscle usage. Abdominal: Wound VAC midline abdomen with no erythema surrounding Ext: ROM intact. No gross muscle atrophy, no edema, no contractures Neuro: Speech clear, face symmetrical with no noted focal neuro deficits Psych: Alert and oriented to person, place, and situation. Appropriate and pleasant affect. Discharge Diagnosis: Acute metabolic encephalopathy, secondary to recurrent episodes of hypoglycemia and electrolyte imbalances Right-sided hemiparesis, improved. Rule out TIA vs CVA Hypoglycemia, recurrent episodes. Believed to be secondary to previous home administration of long-acting insulin Toujeo. Patient is a type 2 insulin- dependent diabetic. Hypokalemia Hypomagnesemia Hypoalbuminemia Severe protein calorie malnourishment Dilated ascending aortic root Metastatic abdominal malignancy status post colectomy 08/05/2023 Hypertension Hyperlipidemia History of third-degree heart block status post permanent pacemaker placement Dementia Anxiety and depression This complex discharge took 35 minutes to complete. Patient Condition at Discharge: Stable Plan - Discharge Summary Discharge Rx Participant: No New Discharge Prescriptions: New Aspirin 81 mg PO DAILY #30 tab Continue amLODIPine BESYLATE 10 mg PO DAILY Atorvastatin [Lipitor] 80 mg PO DAILY Donepezil [Aricept] 10 mg PO HS Losartan Potassium [Cozaar] 100 mg PO HS Multivitamins, Thera [Multivitamin (formulary)] 1 tab PO DAILY Oxybutynin Chloride [oxyBUTYnin chloride ER] 10 mg PO DAILY Sertraline [Zoloft] 50 mg PO DAILY Changed INSULIN LISPRO (humaLOG) [humaLOG] 8 units SQ AC-LUNCH #0 INSULIN LISPRO (humaLOG) [humaLOG] 8 units SQ BID-W/MEALS #0 Insulin Glargine,Hum.rec.anlog [Toujeo Solostar] 24 units SQ DAILY #0 Discharge Medication List Atorvastatin [Lipitor] 80 mg PO DAILY 04/14/20 [History] Donepezil [Aricept] 10 mg PO HS 04/14/20 [History] Losartan Potassium [Cozaar] 100 mg PO HS 04/14/20 [History] Multivitamins, Thera [Multivitamin (formulary)] 1 tab PO DAILY 04/14/20 [History] Oxybutynin Chloride [oxyBUTYnin chloride ER] 10 mg PO DAILY 04/14/20 [History] Sertraline [Zoloft] 50 mg PO DAILY 04/14/20 [History] amLODIPine BESYLATE 10 mg PO DAILY 04/14/20 [History] Aspirin 81 mg PO DAILY #30 tab 09/04/23 [Rx] INSULIN LISPRO (humaLOG) [humaLOG] 8 units SQ AC-LUNCH #0 09/04/23 [Rx] INSULIN LISPRO (humaLOG) [humaLOG] 8 units SQ BID-W/MEALS #0 09/04/23 [Rx] Insulin Glargine,Hum.rec.anlog [Toujeo Solostar] 24 units SQ DAILY #0 09/04/23 [Rx] Follow up Appointment(s)/Referral(s): [facility] [NON-STAFF] - Martin Childress MD [STAFF PHYSICIAN] - 2 Weeks Bonnie Barraza MD [Primary Care Provider] - 1-2 days [facility]idential [facility] [NON-STAFF] - Activity/Diet/Wound Care/Special Instructions: Diet: Diabetic Eat atleast 3 meals a day with snacks. Check blood sugar when you wake up and prior to giving yourself insulin. Follow up with your PCP for further titration of your insulin. Discharge/Stand Alone Forms: Who Do I Call?, Personal Cardiovascular Technician Discharge Disposition: HOME SELF-CARE
== END 2023-09-04 10:58 | disposition home or self-care (01) | DRG 637 ==
LOC: EC 19:56 → 3SCARD 22:14 → OBSVTOIN 09-01 12:18
PROVIDERS: ADMIT Internal Medicine; ATTEND Internal Medicine
DX: E11.649 Type 2 diabetes mellitus with hypoglycemia without coma (principal); E43 Unspecified severe protein-calorie malnutrition; G93.41 Metabolic encephalopathy; C22.0 Liver cell carcinoma; L98.495 Non-pressure chronic ulcer of skin of other sites with muscle involvement without evidence of necrosis; Z68.1 Body mass index [BMI] 19.9 or less, adult; G81.91 Hemiplegia, unspecified affecting right dominant side; E78.5 Hyperlipidemia, unspecified; E87.6 Hypokalemia; E83.42 Hypomagnesemia; D64.9 Anemia, unspecified; E11.622 Type 2 diabetes mellitus with other skin ulcer; I35.1 Nonrheumatic aortic (valve) insufficiency; T38.3X5A Adverse effect of insulin and oral hypoglycemic [antidiabetic] drugs, initial encounter; Z85.46 Personal history of malignant neoplasm of prostate; E88.09 Other disorders of plasma-protein metabolism, not elsewhere classified; X58.XXXA Exposure to other specified factors, initial encounter; Z87.19 Personal history of other diseases of the digestive system; F32.A Depression, unspecified; Z79.899 Other long term (current) drug therapy; Z90.49 Acquired absence of other specified parts of digestive tract; Z82.49 Family history of ischemic heart disease and other diseases of the circulatory system; Z85.07 Personal history of malignant neoplasm of pancreas; Z95.0 Presence of cardiac pacemaker; Z96.652 Presence of left artificial knee joint
CPT/HCPCS: 36415; 70450; 70496; 70498; 71045; 73521; 80053; 80061; 80306; 80320; 81003; 82140; 82550; 83036; 83735; 84484; 85025; 85027; 85610; 85730; 93005; 93306; 94760; 96365; 96366; 96368; 96375; 99285

== ENCOUNTER → 2023-09-16 | Outpatient (CLI) | payer MEDICARE ==
[2023-09-16 13:33] LABS: African American GFR (CKD) >90 (>60 ml/min/1.73 sqM); Blood Urea Nitrogen 16 mg/dL (9-20); Non-African American GFR(CKD) 80 (>60 ml/min/1.73 sqM)
--- NOTE | 2023-09-16 14:36 | CT ---
EXAMINATION TYPE: CT chest w con DATE OF EXAM: 09/16/2023 COMPARISON: CT abdomen and pelvis 08/05/2023 HISTORY: 83-year-old male C49.A4, tumor of stomach TECHNIQUE: Contiguous axial scanning of the chest after the administration of 100 mL of Isovue 300. Coronal/sagittal reconstructions performed. CT DLP: 563mGycm. Automatic exposure control utilized for a dose reduction. FINDINGS: Left anterior chest wall pacemaker generator with right atrial right ventricular leads. Heart normal size without pericardial effusion. Mild aortic valvular calcifications. Tortuous thoracic aorta with mild aneurysm ascending aorta 4.0 cm. There is conventional arch vessel branching anatomy. Scattered mild atherosclerotic calcifications throughout. Upper descending thoraci c aorta ectatic and 3.6 cm and mid descending thoracic aorta at 3.3 cm. Large caliber to the main right and left pulmonary arteries measuring up to 3.3 cm suggesting underly ing pulmonary arterial hypertension. No thoracic adenopathy by CT size criteria. * Small area of tree-in-bud opacities posterior left lower lobe. Lesser degree similar densities pos terior right midlung. Otherwise, no consolidation or pleural effusion. Nonspecific 4 mm pulmonary nod ule lateral left mid lung, axial image 30. * Nonspecific 3 mm left mid lung pulmonary nodule, axial image 26. * Nonspecific 3 mm lateral left midlung pulmonary nodule, axial image 19. No consolidation or pleural effusion. Small hiatal hernia. Interval surgical change of right hemicolectomy partially visualized. * There is a hypodense nodule anterior inferior right liver lobe measuring 2.9 cm versus 2.8 cm, pre viously. * An adjacent 1.1 cm hypodense nodule previously measuring 9 mm. * Additional vague hypodensity posterior right liver lobe measuring 1.5 cm, in retrospect, measuring 1.1 cm, previously. Suspect previous splenic injury with a chronic pseudocyst measuring 5.3 cm. Anterior splenule. Bones: [facility] mid and lower thoracic spine. IMPRESSION: 1. A few left-sided pulmonary nodules measuring up to 4 mm are nonspecific. Consider short interval f ollow-up to ensure stability and exclude metastatic nodules. 2. Some mild tree-in-bud opacities posterior mid and lower lungs. Correlate for symptoms of bronchiol itis. 3. In the visualized upper abdomen, interval right hemicolectomy. There are approximately 3 hepatic l esions, largest measuring 2.9 cm. Some of these may be larger by a few millimeters from prior exam. F ollow-up to exclude metastatic disease.
== END | disposition home or self-care (01) ==
LOC: RADCTMAIN 12:58
PROVIDERS: ATTEND Internal Medicine
DX: K76.89 Other specified diseases of liver (principal); C49.A4 Gastrointestinal stromal tumor of large intestine; R91.8 Other nonspecific abnormal finding of lung field; Z90.49 Acquired absence of other specified parts of digestive tract
CPT/HCPCS: 82565; 84520; 71260; 36415; Q9967

== ENCOUNTER → 2023-09-17 | Outpatient (CLI) | payer MEDICARE ==
--- NOTE | 2023-09-17 13:14 | US ---
EXAMINATION TYPE: US venous doppler duplex UE LT DATE OF EXAM: 09/17/2023 COMPARISON: NONE CLINICAL INDICATION: Male, 83 years old with history of R22.32 LOCALIZED SWELLING, MASS AND LUMP, LE FT UP; SIDE PERFORMED: Left Right Arm: NA Left Arm: Positive for DVT with hyperechoic clot within the left subclavian vein, the axillary vein a nd brachial vein. Clot also identified within the basilic and cephalic veins. IMPRESSION: Deep vein thrombosis within the left subclavian, axial and brachial veins with superficial femoral ph lebitis of the basilic and cephalic veins. Findings communicated to ordering provider by the installation service representative on 09/17/2023 1:11 PM
== END | disposition home or self-care (01) ==
LOC: RADUSWWP 12:34
PROVIDERS: ATTEND Internal Medicine Hematology & Oncology
DX: I82.B12 Acute embolism and thrombosis of left subclavian vein (principal); I82.A12 Acute embolism and thrombosis of left axillary vein; I80.12 Phlebitis and thrombophlebitis of left femoral vein; I82.622 Acute embolism and thrombosis of deep veins of left upper extremity; I80.8 Phlebitis and thrombophlebitis of other sites; R22.32 Localized swelling, mass and lump, left upper limb; C49.A4 Gastrointestinal stromal tumor of large intestine; Z71.3 Dietary counseling and surveillance

== ENCOUNTER 2023-11-08 21:10 | Day surgery (SDC) | payer MEDICARE ==
--- NOTE | 2023-11-08 19:44 | ED ---
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 Patient had a home care nurse out today who he sees regularly due to his cancer. His weekly labs were drawn and he was told to report to the hospital due to critically low potassium levels. Patient states that he has been a bit nauseous and weak for the last day or 2. He states that he has had a low potassium 1 other time, but is unable to give any helpful history regarding this incident. He denies any chest pain, shortness of breath, dizziness, abdominal pain, vomiting, fever. - Related Data Home Medications Medication Instructions Recorded Confirmed Atorvastatin [Lipitor] 80 mg PO DAILY 04/14/20 08/31/23 Donepezil [Aricept] 10 mg PO HS 04/14/20 08/31/23 Losartan Potassium [Cozaar] 100 mg PO HS 04/14/20 08/31/23 Multivitamins, Thera [Multivitamin 1 tab PO DAILY 04/14/20 08/31/23 (formulary)] Oxybutynin Chloride [oxyBUTYnin 10 mg PO DAILY 04/14/20 08/31/23 chloride ER] Sertraline [Zoloft] 50 mg PO DAILY 04/14/20 08/31/23 amLODIPine BESYLATE 10 mg PO DAILY 04/14/20 08/31/23 Previous Rx's Medication Instructions Recorded Aspirin 81 mg PO DAILY #30 tab 09/04/23 INSULIN LISPRO (humaLOG) [humaLOG] 8 units SQ AC-LUNCH #0 09/04/23 INSULIN LISPRO (humaLOG) [humaLOG] 8 units SQ BID-W/MEALS #0 09/04/23 Insulin Glargine,Hum.rec.anlog 24 units SQ DAILY #0 09/04/23 [Terry Barrera] Allergies Allergy/AdvReac Type Severity Reaction Status Date / Time No Known Allergies Allergy Verified 11/08/23 19:01 Review of Systems ROS Statement: Those systems with pertinent positive or pertinent negative responses have been documented in the HPI. ROS Other: All systems not noted in ROS Statement are negative. Past Medical History Past Medical History: Cancer, Diabetes Mellitus, GERD/Reflux, Hypertension Additional Past Medical History / Comment(s): heart murmur, prostate cancer with radiation History of Any Multi-Drug Resistant Organisms: None Reported Past Surgical History: Hernia Repair, Joint Replacement, Orthopedic Surgery Additional Past Surgical History / Comment(s): esophageal surgery, lt ankle surgery,lt knee replacement Past Anesthesia/Blood Transfusion Reactions: No Reported Reaction Past Psychological History: Anxiety, Depression Smoking Status: Former smoker Past Alcohol Use History: None Reported Past Drug Use History: None Reported - Past Family History Mother Family Medical History: Hypertension General Exam Limitations: no limitations General appearance: alert, in no apparent distress Head exam: Present: atraumatic, normocephalic Eye exam: Present: normal appearance, EOMI Neck exam: Present: normal inspection. Absent: meningismus Respiratory exam: Present: normal lung sounds bilaterally. Absent: respiratory distress, wheezes, rales, rhonchi, stridor Cardiovascular Exam: Present: regular rate, normal rhythm, normal heart sounds. Absent: systolic murmur, diastolic murmur, rubs, gallop, clicks Neurological exam: Present: alert, oriented X3 Psychiatric exam: Present: normal affect, normal mood Skin exam: Present: warm, dry Course Vital Signs 11/08/23 11/08/23 18:58 22:00 Temperature 97.8 F Pulse Rate 51 L 68 Respiratory 16 18 Rate Blood Pressure 137/70 128/69 O2 Sat by Pulse 100 99 Oximetry Medical Decision Making - Medical Decision Making Was pt. sent in by a medical professional or institution (, PA, [employer]CH[employer]IC, urgent care, hospital, or prison...) When possible be specific @ -Sent by home nurse Did you speak to anyone other than the patient for history (EMS, parent, family, police, friend...)? What history was obtained from this source @ -No Did you review nursing and triage notes (agree or disagree)? Why? @ -I reviewed and agree with nursing and triage notes Were old charts reviewed (outside hosp., previous admission, EMS record, old EKG, old radiological studies, urgent care reports/EKG's, prison records)? Report findings @ -No old charts were reviewed Differential Diagnosis (chest pain, altered mental status, abdominal pain women, abdominal pain men, vaginal bleeding, weakness, fever, dyspnea, syncope, headache, dizziness, GI bleed, back pain, seizure, CVA, palpatations, mental health, musculoskeletal)? @ -Causes include insulin induced, vomiting and diarrhea, diuretic induced, alcohol abuse, fasting, eating disorder, this is not an all-inclusive list EKG interpreted by me (3pts min.). @ -As above X-rays interpreted by me (1pt min.). @ -None done CT interpreted by me (1pt min.). @ -None done U/S interpreted by me (1pt. min.). @ -None done What testing was considered but not performed or refused? (CT, X-rays, U/S, labs )? Why? @ -None What meds were considered but not given or refused? Why? @ -None Did you discuss the management of the patient with other professionals (professionals i.e. , PA, KIL[employer] MECHANIC, lab, RT, psych nurse, social media executive, professional driver, teacher, weapons officer, case planner)? Give summary @ -I spoke with Olimpianiyah Granadosey who accepted admission Was smoking cessation discussed for >3mins.? @ -No Was critical care preformed (if so, how long)? @ -No Were there social determinants of health that impacted care today? How? (Homelessness, low income, unemployed, alcoholism, drug addiction, transportation, low edu. Level, literacy, decrease access to med. care, residential, rehab)? @ -No Was there de-escalation of care discussed even if they declined (Discuss DNR or withdrawal of care, Hospice)? DNR status @ -No What co-morbidities impacted this encounter? (DM, HTN, Smoking, COPD, CAD, Cancer, CVA, ARF, Chemo, Hep., AIDS, mental health diagnosis, sleep apnea, morbid obesity)? @ -None Was patient admitted / discharged? Hospital course, mention meds given and route, prescriptions, significant lab abnormalities, going to OR and other pertinent info. @ -83-year-old male sent in for low potassium. His potassium here is 2.3 his magnesium is 0.9. Patient is started on IV magnesium replacement and both IV and oral potassium replacement. He is placed on child monitor and admitted he is agreeable with this plan I discussed this case with my attending Dr. Lopes Undiagnosed new problem with uncertain prognosis? @ -No Drug Therapy requiring intensive monitoring for toxicity (Heparin, Nitro, Insul in, Cardizem)? @ -No Were any procedures done? @ -No Diagnosis/symptom? @ -Hypokalemia, hypomagnesemia Acute, or Chronic, or Acute on Chronic? @ -Acute Uncomplicated (without systemic symptoms) or Complicated (systemic symptoms)? @ -Complicated Side effects of treatment? @ -No Exacerbation, Progression, or Severe Exacerbation? @ -No Poses a threat to life or bodily function? How? (Chest pain, USA, RI, pneumonia, PE, COPD, DKA, ARF, appy, cholecystitis, CVA, Diverticulitis, Homicidal, Suic idal, threat to staff... and all critical care pts) @ -Yes - Lab Data Result diagrams: 11/08/23 19:49 11/08/23 19:49 Lab Results 11/08/23 11/08/23 11/08/23 Range/Units 19:49 19:49 21:14 WBC 5.1 (3.8-10.6) k/uL RBC 4.17 L (4.30-5.90) m/uL Hgb 12.4 L (13.0-17.5) gm/dL Hct 37.7 L (39.0-53.0) % MCV 90.6 (80.0-100.0) fL MCH 29.7 (25.0-35.0) pg MCHC 32.8 (31.0-37.0) g/dL RDW 17.4 H (11.5-15.5) % Plt Count 182 (150-450) k/uL MPV 8.6 Neutrophils % (Manual) 65 % Lymphocytes % (Manual) 28 % Monocytes % (Manual) 6 % Eosinophils % (Manual) 1 % Neutrophils # (Manual) 3.32 (1.3-7.7) k/uL Lymphocytes # (Manual) 1.43 (1.0-4.8) k/uL Monocytes # (Manual) 0.31 (0-1.0) k/uL Eosinophils # (Manual) 0.05 (0-0.7) k/uL Nucleated RBCs 0 (0-0) /100 WBC Manual Slide Review Performed Anisocytosis Slight Sodium 139 (137-145) mmol/L Potassium 2.3 L* (3.5-5.1) mmol/L Chloride 111 H (98-107) mmol/L Carbon Dioxide 23 (22-30) mmol/L Anion Gap 5 mmol/L BUN 21 H (9-20) mg/dL Creatinine 1.23 (0.66-1.25) mg/dL Est GFR (CKD-EPI)AfAm 62 (>60 ml/min/1.73 sqM) Est GFR (CKD-EPI)NonAf 54 (>60 ml/min/1.73 sqM) Glucose 65 L (74-99) mg/dL POC Glucose (mg/dL) 87 (70-110) mg/dL POC Glu Helix Coil Winder ID Jame, Monica Calcium 7.1 L (8.4-10.2) mg/dL Magnesium 0.9 L* (1.6-2.3) mg/dL Total Bilirubin 0.6 (0.2-1.3) mg/dL AST 27 (17-59) U/L ALT 17 (4-49) U/L Alkaline Phosphatase 127 H (38-126) U/L Total Protein 5.5 L (6.3-8.2) g/dL Albumin 2.5 L (3.5-5.0) g/dL Disposition Clinical Impression: Hypokalemia, Hypomagnesemia Disposition: ADMITTED IP TO THIS [facility] Condition: Stable Time of Disposition: 21:45
[2023-11-08 20:09] LABS: Anisocytosis Slight; HCT 37.7 % (39.0-53.0); HGB 12.4 gm/dL (13.0-17.5); MCH 29.7 pg (25.0-35.0); MCHC 32.8 g/dL (31.0-37.0); MCV 90.6 fL (80.0-100.0); Mean Platelet Volume 8.6; Platelet Count 182 k/uL (150-450); RBC 4.17 m/uL (4.30-5.90); RDW 17.4 % (11.5-15.5); WBC 5.1 k/uL (3.8-10.6)
[2023-11-08 20:26] LABS: ALT 17 U/L (4-49); AST 27 U/L (17-59); African American GFR (CKD) 62 (>60 ml/min/1.73 sqM); Albumin 2.5 g/dL (3.5-5.0); Alkaline Phosphatase 127 U/L (38-126); Anion Gap 5 mmol/L; Blood Urea Nitrogen 21 mg/dL (9-20); Calcium 7.1 mg/dL (8.4-10.2); Carbon Dioxide 23 mmol/L (22-30); Chloride 111 mmol/L (98-107); Glucose 65 mg/dL (74-99); Non-African American GFR(CKD) 54 (>60 ml/min/1.73 sqM); Sodium 139 mmol/L (137-145); Total Bilirubin 0.6 mg/dL (0.2-1.3); Total Protein 5.5 g/dL (6.3-8.2)
[2023-11-08 20:48] LABS: Potassium 2.3 mmol/L (3.5-5.1)
[2023-11-08 20:51] LABS: Magnesium 0.9 mg/dL (1.6-2.3)
[~2023-11-08 21:10] MED LIST: Magnesium Replacement Protocol 1 EACH MISC MISCELLANE PRN; Potassium Replacement Protocol 1 EACH MISC MISCELLANE PRN
[2023-11-08 21:15] LABS: Glucose,Whole Blood 87 mg/dL (70-110)
[2023-11-08] MEDS: POTASSIUM CHLORIDE ER 20 MEQ TAB.ER PO ONE (21:15)
[2023-11-08] MEDS: POTASSIUM CHLORIDE 10 MEQ in WATER FOR INJECTION 1 100ML.BAG IVPB SCH (21:16)
[2023-11-08] MEDS: DEXTROSE 50% SYRINGE 50 ML IVP STA (21:16)
[2023-11-08 21:21] LABS: Eosinophils # (M) 0.05 k/uL (0-0.7); Lymphocytes # (M) 1.43 k/uL (1.0-4.8); Monocytes # (M) 0.31 k/uL (0-1.0); Neutrophils # (M) 3.32 k/uL (1.3-7.7); Neutrophils % (M) 65 %; Nucleated Red Blood Cells 0 /100 WBC (0-0); Total Cells Counted 100
[2023-11-08] MEDS ORDERED: NALOXONE 0.4 MG/ML 1 ML VIAL IV PRN (21:43)
[2023-11-08] MEDS: MAGNESIUM SULFATE-D5W PMX 1 GM in DEXTROSE/WATER 1 100ML.BAG IVPB SCH (21:45)
[2023-11-09] MEDS ORDERED: DEXTROSE 50% SYRINGE 50 ML IVP PRN (04:50)
[2023-11-09 05:35] LABS: ALT 14 U/L (4-49); AST 23 U/L (17-59); African American GFR (CKD) 70 (>60 ml/min/1.73 sqM); Albumin 2.1 g/dL (3.5-5.0); Albumin/Globulin Ratio 0.8; Alkaline Phosphatase 126 U/L (38-126); Anion Gap 4 mmol/L; Blood Urea Nitrogen 16 mg/dL (9-20); Calcium 6.8 mg/dL (8.4-10.2); Carbon Dioxide 24 mmol/L (22-30); Chloride 112 mmol/L (98-107); Globulin 2.7 g/dL; Magnesium 1.8 mg/dL (1.6-2.3); Non-African American GFR(CKD) 61 (>60 ml/min/1.73 sqM); Sodium 140 mmol/L (137-145); Total Bilirubin 0.4 mg/dL (0.2-1.3); Total Protein 4.8 g/dL (6.3-8.2)
[2023-11-09 05:40] LABS: Anisocytosis Slight; HCT 37.1 % (39.0-53.0); HGB 11.9 gm/dL (13.0-17.5); MCH 29.5 pg (25.0-35.0); MCHC 32.1 g/dL (31.0-37.0); MCV 91.9 fL (80.0-100.0); Platelet Count 185 k/uL (150-450); RBC 4.04 m/uL (4.30-5.90); RDW 17.5 % (11.5-15.5); WBC 5.2 k/uL (3.8-10.6)
[2023-11-09 05:56] LABS: Glucose,Whole Blood 43 mg/dL (70-110)
[2023-11-09] MEDS: INSULIN ASPART (NovoLOG) 100 UNIT/ML VIAL SQ SCH (05:57)
[2023-11-09 06:06] LABS: Glucose 42 mg/dL (74-99); Potassium 2.2 mmol/L (3.5-5.1)
[2023-11-09 06:14] LABS: Eosinophils # (M) 0.05 k/uL (0-0.7); Lymphocytes # (M) 1.61 k/uL (1.0-4.8); Neutrophils # (M) 3.43 k/uL (1.3-7.7); Neutrophils % (M) 66 %; Nucleated Red Blood Cells 0 /100 WBC (0-0); Total Cells Counted 100
[2023-11-09 06:16] LABS: Glucose,Whole Blood 45 mg/dL (70-110)
[2023-11-09] MEDS ORDERED: Potassium Replacement Protocol 1 EACH MISC MISCELLANE PRN ×2 (06:17→12:53)
[2023-11-09] MEDS ORDERED: Magnesium Replacement Protocol 1 EACH MISC MISCELLANE PRN ×2 (06:17→12:53)
[2023-11-09 06:19] LABS: RBC Morphology Normal
[2023-11-09] MEDS: DEXTROSE 50% SYRINGE 50 ML IVP PRN (06:25)
[2023-11-09] MEDS: MAGNESIUM SULFATE-D5W PMX 1 GM in DEXTROSE/WATER 1 100ML.BAG IVPB ONE (06:31)
[2023-11-09] MEDS: POTASSIUM CHLORIDE 10 MEQ in WATER FOR INJECTION 1 100ML.BAG IVPB SCH (06:31)
[2023-11-09 06:33] LABS: Glucose,Whole Blood 62 mg/dL (70-110)
[2023-11-09] MEDS: POTASSIUM CHLORIDE ER 20 MEQ TAB.ER PO SCH ×2 (06:55→13:38)
[2023-11-09] MEDS ORDERED: INSULIN DETEMIR (LEVEMIR) 100 UNIT/ML SYR SQ SCH (07:00)
[2023-11-09 07:02] LABS: Glucose,Whole Blood 106 mg/dL (70-110)
[2023-11-09] MEDS ORDERED: INSULIN ASPART (NovoLOG) 100 UNIT/ML VIAL SQ SCH (07:30)
[2023-11-09 12:06] LABS: Glucose,Whole Blood 115 mg/dL (70-110)
[2023-11-09] MEDS ORDERED: CHOLESTYRAMINE (WITH SUGAR) 4 GM PACKET PO PRN (13:09)
[2023-11-09] MEDS: IMATINIB MESYLATE 400 MG PO SCH ×2 (13:28→17:12)
[2023-11-09] MEDS: PANTOPRAZOLE 40 MG/10 ML VIAL IVP SCH (13:38)
[2023-11-09] MEDS: SERTRALINE 50 MG TAB PO SCH (13:38)
[2023-11-09] MEDS: HEPARIN SODIUM,PORCINE 5,000 UNIT/ML 1 ML VIAL SQ SCH ×2 (13:39→14:56)
[2023-11-09 14:28] VITALS: BMI 25.1
--- NOTE | 2023-11-09 14:34 | XR ---
EXAM: XR chest 1V portable CLINICAL INDICATION:Male, 83 years old with history of chf; [facility] COMPARISON: 08/31/2023 chest x-ray. 09/16/[address] TECHNIQUE: Chest single view. FINDINGS: Lines/tubes/devices: EKG leads over the chest. Left chest dual-lead pacemaker with tips over the righ t atrium and right ventricle. Cardiomediastinum: Cardiac silhouette appears mildly enlarged. Stable mediastinal silhouette. Moderately calcified, moderately to severely tortuous aorta. Mild prom inence of the left more than right hilum again noted likely vascular shadows. Vasculature: No increased pulmonary vasculature. Lungs/pleura: Scattered chronic senescent lung changes. No acute infiltrate, pleural effusion, or pneumothorax. Bones/soft tissues: Osteopenia and mild degenerative changes. No acute osseous abnormality demonstrated on this single vi ew chest study. Regional soft tissues appear unremarkable. IMPRESSION: 1. Cardiomegaly with dual lead pacemaker in place. 2. No evidence of CHF or other acute abnormality.
[2023-11-09] MEDS: APIXABAN 5 MG TAB PO SCH (14:56)
[2023-11-09] MEDS: ONDANSETRON ODT 4 MG TAB PO PRN (15:29)
[2023-11-09 17:10] LABS: Glucose,Whole Blood 106 mg/dL (70-110)
[2023-11-09] MEDS: OXYBUTYNIN 10 MG TAB.ER.24 PO SCH (17:11)
[2023-11-09 18:01] LABS: African American GFR (CKD) 88 (>60 ml/min/1.73 sqM); Anion Gap 4 mmol/L; Blood Urea Nitrogen 14 mg/dL (9-20); Calcium 7.1 mg/dL (8.4-10.2); Carbon Dioxide 23 mmol/L (22-30); Chloride 112 mmol/L (98-107); Glucose 83 mg/dL (74-99); Magnesium 1.8 mg/dL (1.6-2.3); Non-African American GFR(CKD) 76 (>60 ml/min/1.73 sqM); Potassium 3.6 mmol/L (3.5-5.1); Sodium 139 mmol/L (137-145)
[2023-11-09 20:47] LABS: Glucose,Whole Blood 127 mg/dL (70-110)
[2023-11-09] MEDS: DONEPEZIL 10 MG TAB PO SCH (21:50)
--- NOTE | 2023-11-09 23:03 | HP ---
HISTORY AND PHYSICAL CHIEF COMPLAINT: Weakness and hypokalemia. HISTORY OF PRESENT ILLNESS: This 83-year-old gentleman with a past medical history of multiple medical problems including metastatic GI malignancies, complaining of generalized weakness. The patient was found to have significant low potassium in the outpatient setting. The patient was sent to [facility], potassium was found to be 2.3 and 2.2. At this time, the patient closely monitored. There is no history of any fever, rigors, or chills at this time. The patient is unable to keep anything down. PAST MEDICAL HISTORY: History of diabetes mellitus, GERD, history of prostate cancer with radiation, history of intraabdominal malignancy, rest of the history charted. HOME MEDICATIONS: Norvasc, dose not confirmed. ALLERGIES: None. FAMILY HISTORY: History of hypertension. SOCIAL HISTORY: Previous history of smoking. REVIEW OF SYSTEMS: A 14-point review is negative except as mentioned. PHYSICAL EXAMINATION: VITAL SIGNS: Pulse 71, blood pressure 119/43, respirations 16. HEENT: Conjunctivae normal. NECK: No jugular venous distention. CARDIOVASCULAR: S1, S2. RESPIRATIONS: Diminished at the bases, few scattered rhonchi, no crackles. ABDOMEN: Soft, nontender. LEGS: No edema, no swelling. NERVOUS SYSTEM: No focal deficit. SKIN: No ulcer, rash, bleeding. JOINTS: No active deforming arthropathy. LABORATORY DATA: WBC 5.8, hemoglobin 7.9, potassium 2.2, and glucose is 42. ASSESSMENT: 1. Weakness and severe hypokalemia. 2. Hypoglycemia. 3. Hypocalcemia. 4. History of GIST tumor. 5. Hypertension. 6. Diabetes mellitus, type 2. 7. GERD. 8. Anxiety, depression. 9. History of prostate cancer, radiation recommended. 10.Full code. RECOMMENDATIONS AND DISCUSSION: This 83-year-old gentleman presented with multiple complex medical issues, we will monitor the patient closely. Replace potassium, replace magnesium. Will monitor those lytes very closely. PT, OT evaluation. I would also recommend with GI and surgery evaluation if the symptoms persist. Otherwise, home medications will be continued. Prognosis extremely guarded because of multiple complex medical problems, see orders for details. Possible ECF rehab. Home medications will be continued once they are confirmed. MMODL / IJN: [id number] /
[2023-11-10 05:53] LABS: Glucose,Whole Blood 129 mg/dL (70-110)
[2023-11-10 08:42] LABS: Anisocytosis Slight; Basophils % (A) 0 %; Eosinophils % (A) 0 %; HCT 39.1 % (39.0-53.0); HGB 12.4 gm/dL (13.0-17.5); Lymphocytes # (A) 0.6 k/uL (1.0-4.8); Lymphocytes % (A) 11 %; MCH 29.9 pg (25.0-35.0); MCHC 31.6 g/dL (31.0-37.0); MCV 94.5 fL (80.0-100.0); Mean Platelet Volume 8.6; Monocytes # (A) 0.3 k/uL (0-1.0); Monocytes % (A) 6 %; Neutrophils # (A) 3.8 k/uL (1.3-7.7); Neutrophils % (A) 79 %; Platelet Count 183 k/uL (150-450); RBC 4.14 m/uL (4.30-5.90); RDW 17.5 % (11.5-15.5); WBC 4.9 k/uL (3.8-10.6)
[2023-11-10] MEDS: MULTIVITAMINS, THERA 1 EACH TAB PO SCH (09:02)
[2023-11-10] MEDS: ATORVASTATIN 80 MG TAB PO SCH (09:02)
[2023-11-10] MEDS: amLODIPine 5 MG TAB PO SCH (09:02)
[2023-11-10 09:08] LABS: ALT 13 U/L (4-49); AST 23 U/L (17-59); African American GFR (CKD) 88 (>60 ml/min/1.73 sqM); Albumin 2.2 g/dL (3.5-5.0); Albumin/Globulin Ratio 0.8; Alkaline Phosphatase 137 U/L (38-126); Anion Gap 2 mmol/L; Blood Urea Nitrogen 15 mg/dL (9-20); Calcium 7.4 mg/dL (8.4-10.2); Carbon Dioxide 25 mmol/L (22-30); Chloride 113 mmol/L (98-107); Globulin 2.9 g/dL; Glucose 138 mg/dL (74-99); Magnesium 1.8 mg/dL (1.6-2.3); Non-African American GFR(CKD) 76 (>60 ml/min/1.73 sqM); Potassium 4.5 mmol/L (3.5-5.1); Sodium 140 mmol/L (137-145); Total Bilirubin 0.5 mg/dL (0.2-1.3); Total Protein 5.1 g/dL (6.3-8.2)
--- NOTE | 2023-11-10 09:44 | P.GSCN ---
History of Present Illness Consult date: 11/10/23 History of present illness: This is a 83-year-old male who's had some complaints of dysphagia and poor oral intake. Patient states does not feel hungry. Past Medical History Past Medical History: Cancer, Diabetes Mellitus, GERD/Reflux, Hypertension Additional Past Medical History / Comment(s): heart murmur, prostate cancer with radiation History of Any Multi-Drug Resistant Organisms: None Reported Past Surgical History: Hernia Repair, Joint Replacement, Orthopedic Surgery Additional Past Surgical History / Comment(s): esophageal surgery, lt ankle surgery,lt knee replacement Past Anesthesia/Blood Transfusion Reactions: No Reported Reaction Type of Cardiac Device: Permanent Pacemaker Device Placement Date:: Past Psychological History: Anxiety, Depression Smoking Status: Former smoker Past Alcohol Use History: None Reported Past Drug Use History: None Reported - Past Family History Mother Family Medical History: Hypertension Medications and Allergies Home Medications Medication Instructions Recorded Confirmed Type Atorvastatin [Lipitor] 80 mg PO DAILY 04/14/20 11/09/23 History Donepezil [Aricept] 10 mg PO HS 04/14/20 11/09/23 History Multivitamins, Thera [Multivitamin 1 tab PO DAILY 04/14/20 11/09/23 History (formulary)] Oxybutynin Chloride [oxyBUTYnin 10 mg PO DAILY 04/14/20 11/09/23 History chloride ER] Sertraline [Zoloft] 50 mg PO DAILY 04/14/20 11/09/23 History Insulin Glargine,Hum.rec.anlog 24 units SQ DAILY #0 09/04/23 11/09/23 Rx [Tousteve Solostar] Apixaban [Eliquis] 5 mg PO BID 11/09/23 11/09/23 History Cholestyramine/Aspartame 4 gm PO DAILY PRN 11/09/23 11/09/23 History [Cholestyramine Light Powder] INSULIN LISPRO (humaLOG) [humaLOG] 9 units SQ AC-TID 11/09/23 11/09/23 History Imatinib Mesylate 400 mg PO DAILY 11/09/23 11/09/23 History Omeprazole 40 mg PO DAILY 11/09/23 11/09/23 History Ondansetron Odt [Zofran Odt] 4 mg PO TID PRN 11/09/23 11/09/23 History amLODIPine [Norvasc] 5 mg PO DAILY 11/09/23 11/09/23 History Allergies Allergy/AdvReac Type Severity Reaction Status Date / Time No Known Allergies Allergy Verified 11/09/23 13:05 Surgical - Exam Vital Signs Temp Pulse Resp BP Pulse Ox 97.8 F 51 L 16 137/70 100 11/08/23 18:58 11/08/23 18:58 11/08/23 18:58 11/08/23 18:58 11/08/23 18:58 - General well developed, well nourished, no distress - Eyes PERRL - ENT normal pinna - Neck no masses - Respiratory normal expansion - Cardiovascular Rhythm: regular - Abdomen Abdomen: soft, non tender Results - Labs 11/10/23 06:55 11/10/23 06:55 Abnormal Lab Results - Last 24 Hours (Table) 11/09/23 11/09/23 11/09/23 Range/Units 12:05 12:56 17:15 RBC (4.30-5.90) m/uL Hgb (13.0-17.5) gm/dL RDW (11.5-15.5) % Lymphocytes # (1.0-4.8) k/uL Potassium 3.1 L (3.5-5.1) mmol/L Chloride 112 H (98-107) mmol/L Glucose (74-99) mg/dL POC Glucose (mg/dL) 115 H (70-110) mg/dL Calcium 7.1 L (8.4-10.2) mg/dL Alkaline Phosphatase (38-126) U/L Total Protein (6.3-8.2) g/dL Albumin (3.5-5.0) g/dL 11/09/23 11/10/23 11/10/23 Range/Units 20:46 05:52 06:55 RBC (4.30-5.90) m/uL Hgb (13.0-17.5) gm/dL RDW (11.5-15.5) % Lymphocytes # (1.0-4.8) k/uL Potassium (3.5-5.1) mmol/L Chloride 113 H (98-107) mmol/L Glucose 138 H (74-99) mg/dL POC Glucose (mg/dL) 127 H 129 H (70-110) mg/dL Calcium 7.4 L (8.4-10.2) mg/dL Alkaline Phosphatase 137 H (38-126) U/L Total Protein 5.1 L (6.3-8.2) g/dL Albumin 2.2 L (3.5-5.0) g/dL 11/10/23 Range/Units 06:55 RBC 4.14 L (4.30-5.90) m/uL Hgb 12.4 L (13.0-17.5) gm/dL RDW 17.5 H (11.5-15.5) % Lymphocytes # 0.6 L (1.0-4.8) k/uL Potassium (3.5-5.1) mmol/L Chloride (98-107) mmol/L Glucose (74-99) mg/dL POC Glucose (mg/dL) (70-110) mg/dL Calcium (8.4-10.2) mg/dL Alkaline Phosphatase (38-126) U/L Total Protein (6.3-8.2) g/dL Albumin (3.5-5.0) g/dL Diabetes panel 11/09/23 11/09/23 11/10/23 Range/Units 12:56 17:15 06:55 Sodium 139 140 (137-145) mmol/L Potassium 3.1 L 3.6 4.5 (3.5-5.1) mmol/L Chloride 112 H 113 H (98-107) mmol/L Carbon Dioxide 23 25 (22-30) mmol/L BUN 14 15 (9-20) mg/dL Creatinine 0.92 0.92 (0.66-1.25) mg/dL Glucose 83 138 H (74-99) mg/dL Calcium 7.1 L 7.4 L (8.4-10.2) mg/dL AST 23 (17-59) U/L ALT 13 (4-49) U/L Alkaline Phosphatase 137 H (38-126) U/L Total Protein 5.1 L (6.3-8.2) g/dL Albumin 2.2 L (3.5-5.0) g/dL Calcium panel 11/09/23 11/10/23 Range/Units 17:15 06:55 Calcium 7.1 L 7.4 L (8.4-10.2) mg/dL Albumin 2.2 L (3.5-5.0) g/dL Pituitary panel 11/09/23 11/09/23 11/10/23 Range/Units 12:56 17:15 06:55 Sodium 139 140 (137-145) mmol/L Potassium 3.1 L 3.6 4.5 (3.5-5.1) mmol/L Chloride 112 H 113 H (98-107) mmol/L Carbon Dioxide 23 25 (22-30) mmol/L BUN 14 15 (9-20) mg/dL Creatinine 0.92 0.92 (0.66-1.25) mg/dL Glucose 83 138 H (74-99) mg/dL Calcium 7.1 L 7.4 L (8.4-10.2) mg/dL Adrenal panel 11/09/23 11/09/23 11/10/23 Range/Units 12:56 17:15 06:55 Sodium 139 140 (137-145) mmol/L Potassium 3.1 L 3.6 4.5 (3.5-5.1) mmol/L Chloride 112 H 113 H (98-107) mmol/L Carbon Dioxide 23 25 (22-30) mmol/L BUN 14 15 (9-20) mg/dL Creatinine 0.92 0.92 (0.66-1.25) mg/dL Glucose 83 138 H (74-99) mg/dL Calcium 7.1 L 7.4 L (8.4-10.2) mg/dL Total Bilirubin 0.5 (0.2-1.3) mg/dL AST 23 (17-59) U/L ALT 13 (4-49) U/L Alkaline Phosphatase 137 H (38-126) U/L Total Protein 5.1 L (6.3-8.2) g/dL Albumin 2.2 L (3.5-5.0) g/dL Assessment and Plan Assessment: Dysphagia and poor oral intake. Patient be scheduled for EGD in the a.m.
[2023-11-10 12:01] LABS: Glucose,Whole Blood 159 mg/dL (70-110)
[2023-11-10] MEDS: IOPAMIDOL CONTRAST (ORAL USE) VIAL PO PRN (15:31)
[2023-11-10 17:39] LABS: Glucose,Whole Blood 164 mg/dL (70-110)
--- NOTE | 2023-11-10 20:25 | CT ---
EXAMINATION TYPE: CT ChestAbdPelvis wo con CT DLP: 719.4 mGycm, Automated exposure control for dose reduction was used. DATE OF EXAM: 11/10/2023 5:36 PM COMPARISON: None. CLINICAL INDICATION:Male, 83 years old with history of abdominal pain, weakness, weight loss; PHH, GE NERAL WEAKNESS/ABD PAIN TECHNIQUE: Multiple axial images of the chest, abdomen, and pelvis were obtained. Two-dimensional cor onal and sagittal reconstructions were obtained. Contrast used: mL of , Oral contrast used: with Oral Contrast FINDINGS: CHEST: LUNGS/ PLEURA: Upper lungs are clear. There are moderate-sized bilateral pleural effusions with adjac ent opacities consistent with compressive atelectasis. No pneumothorax. AIRWAY: Central airways are patent. LOWER NECK: No significant findings. MEDIASTINUM: No gross evidence of adenopathy. Left chest pacemaker with leads in RA and RV. HEART: Mild cardiomegaly. Moderate to severe coronary arterial calcifications.. No appreciable perica rdial effusion. VASCULATURE: Moderate to severe atherosclerotic calcifications of the aortic valve, aorta and branch es. Ascending aorta is 4.1 CM, descending is 3.7 CM. The aorta is rather tortuous. Pulmonary trunk me asures 3.5 CM. The pulmonary trunk is enlarged (>3cm), this can be seen with pulmonary hypertension. Vessels not otherwise assessed without contrast. SOFT TISSUES/LYMPH NODES: Mild body wall edema. No axillary adenopathy. MUSCULOSKELETAL: There are several healing subacute rib fractures bilaterally with minimal displaceme nt. Possible subtle healed/healing fracture of the upper sternal body as well. OTHER: No other significant finding. ABDOMEN PELVIS: ABDOMEN LIVER: Vague hypodense lesion in the right lobe suggested measuring approximately 1.3 cm image 63. Ot her smaller lesions could not be excluded. GALLBLADDER AND BILE DUCTS: The gallbladder is contracted around multiple calcified gallstones. PANCREAS: Fatty infiltrated without acute finding SPLEEN: Somewhat bulbous lower attenuation area in its midportion could relate to cyst. ADRENAL GLANDS: Mildly thickened, this can be seen with hyperplasia.. KIDNEYS AND URETERS: Perinephric stranding. Punctate nonobstructing calculus mid to inferior right ki dney. No ureteral stones are seen. PELVIS BLADDER: Nondistended and not well assessed. REPRODUCTIVE: There are pelvic phleboliths. Radiodensities in the region of the prostate may be from brachytherapy. Prostate mildly prominent in size measuring up to 4.8 cm transverse. There are calcifi cations of the vas deferens which can be seen with diabetes. ABDOMEN & PELVIS STOMACH AND BOWEL: Stomach is nondistended. There is probably a small sliding hiatal hernia. The wall along the duodenal sweep appears somewhat thickened with mild luminal narrowing. Suggestion of some mild wall thickening throughout the more distal small bowel loops as well. No focal masslike area or obstruction is seen. Appendix is not clearly seen. There is contrast in the colon with areas of nondi stention not well assessed. Question mild thickening of the cecal wall. There are scattered diverticu la throughout the colon without clear evidence of diverticulitis. PERITONEUM/RETROPERITONEUM: No evidence of pneumoperitoneum or free fluid. Mild hazy appearance of th e abdominal mesentery. VASCULATURE: Moderate atherosclerotic calcifications are present throughout the abdominal aorta and i ts branches. Aorta and iliac arteries are tortuous. No evidence of AAA. MUSCULOSKELETAL: Generalized osteopenia and moderate degenerative changes throughout the thoracolumba r spine. No clearly acute abnormality. LYMPH NODES: No enlarged nodes by CT size criteria. SOFT TISSUES/ABDOMINAL WALL: Mild generalized body wall edema. Likely postoperative changes in the an terior abdominal wall close to midline. OTHER: No other significant finding. IMPRESSION: 1. Moderate-sized bilateral pleural effusions with adjacent opacities consistent with compressive at electasis. 2. Otherwise no acute process in the chest. 3. Mild cardiomegaly with dual-lead pacemaking device in place. Moderate to severe coronary arterial calcifications. 4. Moderate to severe atherosclerotic calcifications of the aortic valve, aorta and branches. 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 Descending aorta is 3.7 cm. The aorta i s rather tortuous. 5. Enlarged pulmonary trunk, can be seen with pulmonary hypertension. 6. Several healing subacute rib fractures bilaterally with minimal displacement. Possible subtle hea led/healing fracture of the upper sternal body as well. No pneumothorax. 7. Vague hypodense lesion in the right lobe suggested measuring approximately 1.3 cm.. Other smaller lesions could not be excluded. This could be further assessed with nonemergent MRI. 8. Gallbladder is contracted around multiple calcified gallstones. 9. Punctate nonobstructing calculus mid to inferior right kidney. No hydronephrosis. 10. No evidence of bowel obstruction, free fluid or free air. 11. Nonspecific bowel findings with question of wall thickening along the duodenum as well as the mo re distal small bowel and right colon, could be due to infectious/inflammatory process versus neoplas m. 12. Colonic diverticulosis without definite diverticulitis. 13. Mild body wall edema, can be seen with third spacing of fluids.
[2023-11-10 20:29] LABS: Glucose,Whole Blood 146 mg/dL (70-110)
--- NOTE | 2023-11-10 23:51 | PN ---
PROGRESS NOTE DATE OF SERVICE: 11/10/2023 SUBJECTIVE: This is an 83-year-old gentleman admitted with weakness and hypokalemia, also had some dysphagia. Surgery is planning EGD tomorrow. The patient is being closely monitored. No chest pain. No palpitations. PAST MEDICAL HISTORY: Reviewed. REVIEW OF SYSTEMS: Fourteen-point review is negative except as mentioned earlier. CURRENT MEDICATIONS: Reviewed include Questran, Lipitor. PHYSICAL EXAMINATION: VITAL SIGNS: Pulse is 68, blood pressure 129/70, respirations 16. CHEST: Clear to auscultation. CARDIOVASCULAR: S1, S2. ABDOMEN: Soft. NERVOUS SYSTEM: Diffusely weak. LABORATORY DATA: Hemoglobin 12.4, rest of the labs are noted. ASSESSMENT: 1. Weakness and severe hypokalemia. 2. Dysphagia. 3. Hypoglycemia. 4. Hypocalcemia. 5. History of GIST tumor. 6. Hypertension. 7. Diabetes mellitus, type 2. 8. Gastroesophageal reflux disease. 9. History of anxiety, depression. 10.History of prostate cancer. 11.Full code. RECOMMENDATIONS AND DISCUSSION: Recommend to continue current medications, continue symptomatic treatment. Otherwise, repeat labs. EGD. I would also recommend CT scan chest, abdomen, and pelvis. Hematology, Oncology evaluation. Prognosis guarded because of multiple complex medical issues. Further recommendations to follow. MMODL / IJN: [id number] /
[2023-11-11 02:51] VITALS: RESP 16
[2023-11-11 06:12] LABS: Glucose,Whole Blood 79 mg/dL (70-110)
[2023-11-11 08:38] LABS: Glucose,Whole Blood 77 mg/dL (70-110)
[2023-11-11] MEDS ORDERED: NON FORMULARY DRUG (Omeprazole [Omeprazole] 40 MG Capsule.Dr) PO SCH (09:00)
[2023-11-11 11:13] LABS: Basophils # (A) 0.02 X 10*3/uL (0.00-0.10); Basophils % (A) 0.4 %; Eosinophils # (A) 0.01 X 10*3/uL (0.04-0.35); Eosinophils % (A) 0.2 %; HCT 38.9 % (39.6-50.0); HGB 12.6 g/dL (13.0-17.0); Lymphocytes # (A) 0.97 X 10*3/uL (0.90-5.00); MCH 29.6 pg (27.0-32.0); MCHC 32.4 g/dL (32.0-37.0); MCV 91.3 FL (80.0-97.0); Mean Platelet Volume 11.8 FL (9.5-12.2); Monocytes % (A) 8.2 %; NRBC Per 100 WBC 0 X 10*3/uL (0.00-0.01); Neutrophils # (A) 3.44 X 10*3/uL (1.80-7.70); Platelet Count 211 X 10*3/uL (140-440); RBC 4.26 X 10*6/uL (4.40-5.60); RDW 19.1 % (11.5-14.5); WBC 4.85 X 10*3/uL (4.50-10.00)
[2023-11-11 11:26] LABS: ALT 14 U/L (10-49); AST 24 U/L (14-35); Albumin 2.7 g/dL (3.8-4.9); Alkaline Phosphatase 141 U/L (41-126); Blood Urea Nitrogen 14.5 mg/dL (9.0-27.0); Calcium 8.3 mg/dL (8.7-10.3); Chloride 110 mmol/L (96-109); Globulin 2.7 g/dL (1.6-3.3); Glucose 105 mg/dL (70-110); Potassium 4.4 mmol/L (3.5-5.5); Sodium 142 mmol/L (135-145); Total Bilirubin 0.5 mg/dL (0.3-1.2); Total Protein 5.4 g/dL (6.2-8.2)
--- NOTE | 2023-11-11 11:32 | P.CONS ---
History of Present Illness - Reason for Consult Consult date: 11/11/23 wound care - History of Present Illness This is a 83-year-old patient known to the wound care center with a nonhealing ulceration to the abdomen. Patient had abdominal surgery while in [place] approximately 6 weeks ago. At this time ulceration is epithelialized. No drainage noted. Review Of Systems: Constitutional: No fever, no chills, no night sweats. No weight change. No weakness, fatigue or lethargy. No daytime sleepiness. Integumentary:reports wounds, no lesions. No rash or pruritus. No unusual bruising. No change in hair or nails. Physical exam: General Appearance: Alert, cooperative, no distress, appears stated age. Skin: See HPI all other Skin color, texture, tugor normal, no rashes or lesions. Neurologic: Alert oriented x3 Assessment: 1. Nonhealing ulceration limited to skin breakdown other site. Plan: 1. Apply zinc barrier cream to the site daily and as needed cover with a bordered foam. Patient return to the wound care center November 25 at 3:00. Thank you for the consultation any questions please contact the wound care center DNP note has been reviewed and discussed with Dr. Stoddard and the impression and plan of care has been directed as dictated. Past Medical History Past Medical History: Cancer, Diabetes Mellitus, GERD/Reflux, Hypertension Additional Past Medical History / Comment(s): heart murmur, prostate cancer with radiation History of Any Multi-Drug Resistant Organisms: None Reported Past Surgical History: Hernia Repair, Joint Replacement, Orthopedic Surgery Additional Past Surgical History / Comment(s): esophageal surgery, lt ankle surgery,lt knee replacement Past Anesthesia/Blood Transfusion Reactions: No Reported Reaction Type of Cardiac Device: Permanent Pacemaker Device Placement Date:: unknwn Past Psychological History: Anxiety, Depression Smoking Status: Former smoker Past Alcohol Use History: None Reported Past Drug Use History: None Reported - Past Family History Mother Family Medical History: Hypertension Medications and Allergies Home Medications Medication Instructions Recorded Confirmed Type Atorvastatin [Lipitor] 80 mg PO DAILY 04/14/20 11/09/23 History Donepezil [Aricept] 10 mg PO HS 04/14/20 11/09/23 History Multivitamins, Thera [Multivitamin 1 tab PO DAILY 04/14/20 11/09/23 History (formulary)] Oxybutynin Chloride [oxyBUTYnin 10 mg PO DAILY 04/14/20 11/09/23 History chloride ER] Sertraline [Zoloft] 50 mg PO DAILY 04/14/20 11/09/23 History Insulin Glargine,Hum.rec.anlog 24 units SQ DAILY #0 09/04/23 11/09/23 Rx [Toujeo Solostar] Apixaban [Eliquis] 5 mg PO BID 11/09/23 11/09/23 History Cholestyramine/Aspartame 4 gm PO DAILY PRN 11/09/23 11/09/23 History [Cholestyramine Light Powder] INSULIN LISPRO (humaLOG) [humaLOG] 9 units SQ AC-TID 11/09/23 11/09/23 History Imatinib Mesylate 400 mg PO DAILY 11/09/23 11/09/23 History Omeprazole 40 mg PO DAILY 11/09/23 11/09/23 History Ondansetron Odt [Zofran Odt] 4 mg PO TID PRN 11/09/23 11/09/23 History amLODIPine [Norvasc] 5 mg PO DAILY 11/09/23 11/09/23 History Allergies Allergy/AdvReac Type Severity Reaction Status Date / Time No Known Allergies Allergy Verified 11/09/23 13:05 Physical Exam Vitals: Vital Signs Temp Pulse Resp BP Pulse Ox 11/11/23 07:35 98.1 F 68 16 152/77 96 11/11/23 02:14 98.6 F 75 16 124/61 98 11/10/23 21:42 71 11/10/23 19:18 98.4 F 71 15 135/67 96 11/10/23 15:00 98.3 F 77 16 135/69 97 11/10/23 14:00 77 16 Intake and Output 11/10/23 11/11/23 11/11/23 22:59 06:59 14:59 Intake Total 480 Balance 480 Intake: Oral 480 Other: Voiding Method Toilet Urinal # Voids 1 1 Results CBC & Chem 7: 11/11/23 06:36 11/11/23 06:36 Labs: Abnormal Lab Results - Last 24 Hours (Table) 11/10/23 11/10/23 11/10/23 Range/Units 11:59 17:37 20:28 RBC (4.40-5.60) X 10*6/uL Hgb (13.0-17.0) g/dL Hct (39.6-50.0) % RDW (11.5-14.5) % Eosinophils # (0.04-0.35) X 10*3/uL Chloride (96-109) mmol/L POC Glucose (mg/dL) 159 H 164 H 146 H (70-110) mg/dL Calcium (8.7-10.3) mg/dL Alkaline Phosphatase (41-126) U/L Total Protein (6.2-8.2) g/dL Albumin (3.8-4.9) g/dL Albumin/Globulin Ratio (1.60-3.17) Ratio 11/11/23 11/11/23 Range/Units 06:36 06:36 RBC 4.26 L (4.40-5.60) X 10*6/uL Hgb 12.6 L (13.0-17.0) g/dL Hct 38.9 L (39.6-50.0) % RDW 19.1 H (11.5-14.5) % Eosinophils # 0.01 L (0.04-0.35) X 10*3/uL Chloride 110 H (96-109) mmol/L POC Glucose (mg/dL) (70-110) mg/dL Calcium 8.3 L (8.7-10.3) mg/dL Alkaline Phosphatase 141 H (41-126) U/L Total Protein 5.4 L (6.2-8.2) g/dL Albumin 2.7 L (3.8-4.9) g/dL Albumin/Globulin Ratio 1.00 L (1.60-3.17) Ratio Assessment and Plan (1) Non-pressure chronic ulcer of skin of other sites limited to breakdown of skin Current Visit: Yes Status: Acute Code(s): L98.491 - NON-PRS CHRONIC ULCER SKIN/ SITES LIMITED TO BRKDWN SKIN SNOMED Code(s): 74725299 (2) Type 2 diabetes mellitus with other skin ulcer Current Visit: No Status: Acute Code(s): E11.622 - TYPE 2 DIABETES MELLITUS WITH OTHER SKIN ULCER; L98.499 - NON-PRESSURE CHRONIC ULCER OF SKIN OF SITES W UNSP SEVERITY SNOMED Code(s): 249283830
[2023-11-11 12:28] LABS: Glucose,Whole Blood 83 mg/dL (70-110)
[2023-11-11] MEDS ORDERED: LIDOCAINE 1% INJ 10MG/ML (20 ML MDV) ONE (13:48)
[2023-11-11] MEDS ORDERED: PROPOFOL 10 MG/ML 20 ML VIAL IV ONE (13:48)
[2023-11-11] MEDS: IV FLUID CONTINUATION 700 ML IV ONE (13:53)
--- NOTE | 2023-11-11 14:03 | P.OP ---
Date of Procedure: 11/11/23 Preoperative Diagnosis: dysphagia Postoperative Diagnosis: mild antral gastritis Procedure(s) Performed: EGD Anesthesia: MAC Surgeon: Gal Sandoval Pathology: other (antrum) Condition: stable Disposition: PACU Description of Procedure: the patient's placed on the endoscopy table in the lateral position. He received IV sedation. The gaseously oropharynx passed in the esophagus and stomach. Scope was then placed through the pylorus. The first and second portion of the duodenum appeared normal. Scope was then brought back the antrum this appeared mildly inflamed. A biopsies performed. The scope was unretroflexed and remainder the stomach appeared normal. The GE junction was at 40 cm. The distal esophagus appeared normal. The proximal esophagus appeared normal. Scope withdrawn for patient.
--- NOTE | 2023-11-11 15:58 | P.CONS ---
History of Present Illness - Reason for Consult Consult date: 11/11/23 malignancy Requesting physician: Meghan Benítez - Chief Complaint Hypokalemia, hypomagnesmia - History of Present Illness Mr. Thurston is an 83-year-old male pt of Dr. Annamarie Childress [facility] significant for complete heart block status post dual-chamber pacemaker on 04/11/2023, DMII, and achalasia who is treated and followed for recent diagnosis of gastrointestinal stromal tumor. He reported abdominal pain intermittently in June 2023 along with decreased appetite. While on vacation in [place] in July 2023, he had progressive abdominal pain and loose stool. CT AP 08/05/2023 at [facility] in [place], [place] noted large mass involving the ascending colon and cecum along with solid mass in the inferior right lobe of the liver and multiple other smaller lesions within the liver consistent with malignancy. There was no evidence of bowel obstruction. He underwent right colectomy with partial small bowel resection and open wedge liver biopsy of liver mass on 08/05/2023. 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 Mitotic rate was 40 mitoses per 5 mm with tumor size measuring 9 by 8 x 8 x 7 cm. Mesenteric radial margin was positive for tumor. 7 lymph nodes identified were negative for malignancy. Neoplastic cells were strongly positive for CD117, DOG1, and Ki-67 of 60%. Wedge biopsy of the right liver mass was consistent with metastatic gastrointestinal stromal tumor. Small bowel with implant noted focal acute peritonitis with perforation along with surgical mesh from prior hernia surrounded by granulomatous reaction, no evidence of malignancy was seen. He was discharged 08/13/2023 and had wound VAC placement. He returned to [place], and 08/31/23 he was hospitalized for loss of consciousness, which was believed to be secondary to hypoglycemia. Echo on 09/03/2023 revealed EF of 55% with asymmetric septal hypertrophy and negative bubble study. Post postop healing and wound VAC, patient started Gleevec in September. He was seen recently and doing well. His potassium and magnesium had been low and needed supplementation. Pt currently admitted for supplementation of hypokalemia and low mag. He reported wt loss-in our chart he has lost about 4 lbs in 3 months. He is having EGD today. Denies fever, N,V, SOB, abd pain, acute changes in bowel habits, no black or bloody stool. Review of Systems 10 point review of systems is negative except as stated in HPI Past Medical History Past Medical History: Cancer, Diabetes Mellitus, GERD/Reflux, Hypertension Additional Past Medical History / Comment(s): heart murmur, prostate cancer with radiation History of Any Multi-Drug Resistant Organisms: None Reported Past Surgical History: Hernia Repair, Joint Replacement, Orthopedic Surgery Additional Past Surgical History / Comment(s): esophageal surgery, lt ankle surgery,lt knee replacement Past Anesthesia/Blood Transfusion Reactions: No Reported Reaction Type of Cardiac Device: Permanent Pacemaker Device Placement Date:: unknwn Past Psychological History: Anxiety, Depression Smoking Status: Former smoker Past Alcohol Use History: None Reported Past Drug Use History: None Reported - Past Family History Mother Family Medical History: Hypertension Medications and Allergies Home Medications Medication Instructions Recorded Confirmed Type Atorvastatin [Lipitor] 80 mg PO DAILY 04/14/20 11/09/23 History Donepezil [Aricept] 10 mg PO HS 04/14/20 11/09/23 History Multivitamins, Thera [Multivitamin 1 tab PO DAILY 04/14/20 11/09/23 History (formulary)] Oxybutynin Chloride [oxyBUTYnin 10 mg PO DAILY 04/14/20 11/09/23 History chloride ER] Sertraline [Zoloft] 50 mg PO DAILY 04/14/20 11/09/23 History Insulin Glargine,Hum.rec.anlog 24 units SQ DAILY #0 09/04/23 11/09/23 Rx [Toujeo Solostar] Apixaban [Eliquis] 5 mg PO BID 11/09/23 11/09/23 History Cholestyramine/Aspartame 4 gm PO DAILY PRN 11/09/23 11/09/23 History [Cholestyramine Light Powder] INSULIN LISPRO (humaLOG) [humaLOG] 9 units SQ AC-TID 11/09/23 11/09/23 History Imatinib Mesylate 400 mg PO DAILY 11/09/23 11/09/23 History Omeprazole 40 mg PO DAILY 11/09/23 11/09/23 History Ondansetron Odt [Zofran ODT] 4 mg PO TID PRN 11/09/23 11/09/23 History amLODIPine [Norvasc] 5 mg PO DAILY 11/09/23 11/09/23 History Pantoprazole [Protonix] 40 mg PO DAILY #30 tab 11/11/23 Rx Allergies Allergy/AdvReac Type Severity Reaction Status Date / Time No Known Allergies Allergy Verified 11/09/23 13:05 Physical Exam Vitals: Vital Signs Temp Pulse Resp BP Pulse Ox 11/11/23 07:35 98.1 F 68 16 152/77 96 11/11/23 02:14 98.6 F 75 16 124/61 98 11/10/23 21:42 71 11/10/23 19:18 98.4 F 71 15 135/67 96 11/10/23 15:00 98.3 F 77 16 135/69 97 11/10/23 14:00 77 16 Intake and Output 11/10/23 11/11/23 11/11/23 22:59 06:59 14:59 Intake Total 480 Balance 480 Intake: Oral 480 Other: Voiding Method Toilet Urinal # Voids 1 1 - Constitutional General appearance: average body habitus, cooperative, no acute distress - EENT Eyes: anicteric sclerae, EOMI ENT: hearing grossly normal - Respiratory Respirations even and unlabored as patient ambulates around the room with a w heeled walker - Cardiovascular Skin warm and dry to the touch, well-perfused leg Peripheral Edema: bilateral: None - Integumentary Integumentary: normal - Neurologic Neurologic: CNII-XII intact - Musculoskeletal Musculoskeletal: generalized weakness, strength equal bilaterally - Psychiatric Psychiatric: A&O x's 3, appropriate affect, intact judgment & insight Results CBC & Chem 7: 11/11/23 06:36 11/11/23 06:36 Labs: Abnormal Lab Results - Last 24 Hours (Table) 11/10/23 11/10/23 11/10/23 Range/Units 06:55 11:59 17:37 Chloride 113 H (98-107) mmol/L Glucose 138 H (74-99) mg/dL POC Glucose (mg/dL) 159 H 164 H (70-110) mg/dL Calcium 7.4 L (8.4-10.2) mg/dL Alkaline Phosphatase 137 H (38-126) U/L Total Protein 5.1 L (6.3-8.2) g/dL Albumin 2.2 L (3.5-5.0) g/dL 11/10/23 Range/Units 20:28 Chloride (98-107) mmol/L Glucose (74-99) mg/dL POC Glucose (mg/dL) 146 H (70-110) mg/dL Calcium (8.4-10.2) mg/dL Alkaline Phosphatase (38-126) U/L Total Protein (6.3-8.2) g/dL Albumin (3.5-5.0) g/dL Comments: CT of the chest abdomen and pelvis impression: Moderate bilateral pleural effusions with adjacent opacities consistent with compressive atelectasis dual- lead pacemaker, moderate to severe coronary arterial calcifications, subacute rib fractures healing, right upper lobe hypodense lesion 1.3 cm, gallbladder with calcified gallstones. 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 -Magnesium 0.9 on admit, supplemented, today 1.8 -This has been an ongoing problem for the patient since starting Gleevec. Lab encounter scheduled for next week to check for the same. Pt will be supplemented as indicated GIST, spindle cell subtype -Patient has been on Gleevec since late September for the same. Tolerating well. Cont gleevec -F/U scheduled Doctor attests: I performed a history and physical examination of this patient, developed impression and plan of care. Discussed with dictator. I agree with dictators note, documented as a scribe.
[2023-11-11 16:34] VITALS: BP 154/88; PULSE 75; TEMP 97.8
--- NOTE | 2023-11-15 11:12 | P.DS ---
Providers Date of admission: 11/10/23 12:37 Expected date of discharge: 11/11/23 Attending physician: Meghan Benítez Consults: 11/09/23 13:15 Consult Physician Routine Consulting Provider: Gal Sandoval Consult Reason/Comments: dysphagia, poor oral intake, poss scope Do you want consulting provider notified?: Yes 11/10/23 13:54 Consult Physician Routine Consulting Provider: Jayden Nelson Consult Reason/Comments: malignancy Do you want consulting provider notified?: Yes Primary care physician: Bonnie Barraza MD Hospital Course: Final diagnosis Weakness and severe hypokalemia, likely secondary to poor oral intake Dysphagia Hypoglycemia Hypocalcemia History of GIST tumor Hypertension history Diabetes mellitus, type II GERD History of anxiety/depression previous history of prostate cancer GI prophylaxis DVT prophylaxis Full code Discharge disposition Patient is being discharged in a stable condition with guarded prognosis to home. Patient will follow-up with Dr. Barraza in the outpatient setting upon discharge. Patient is to continue with wound care by applying zinc barrier cream to the abdominal site covered with a bordered foam and keep outpatient follow-up appointment on November 25 at 3 PM. Patient to follow-up with oncology outpatient as scheduled. Total time taken is greater than 35 minutes. Hospital course This is a 83-year-old male who was recently admitted with weight loss dysphagia and mild abdominal pain being closely monitored. Patient evaluated by speech as well as general surgery underwent EGD showing mild antral gastritis. Patient reports is tolerating diet and would like to follow-up in the outpatient setting. Patient is extremely anxious to want a go home and reports he has appointments in the outpatient setting he needs to get to. Patient has been cleared by consultations. Please refer to other consultation documentation for further HPI. Patient does have an appointment on November 25 with the wound care center and has been instructed to keep this appointment. Currently no reports of chest pain, shortness of breath, or palpitations. Patient is afebrile. No reports of nausea or vomiting and patient is tolerating diet. Patient will be discharged home today. Patient to follow-up with general surgery regarding biopsy results as well. Overall prognosis is guarded. Physical exam: Gen: This is a 83-year-old male who is awake, alert and oriented x 3, well- developed, well-nourished, elderly appearing HEENT: Head is atraumatic, normocephalic. Pupils equal, round. Sclerae is anicteric. NECK: Supple. No JVD. No lymphadenopathy. No thyromegaly. LUNGS: Clear to auscultation. No wheezes or rhonchi. No intercostal retractions. HEART: Regular rate and rhythm. No murmur. ABDOMEN: Soft. Bowel sounds are present. No masses. No tenderness. Surgical site dressing is dry and intact with no significant redness or swelling noted. EXTREMITIES: No pedal edema. No calf tenderness. NEUROLOGICAL: Patient is awake, alert and oriented x3. Cranial nerves 2 through 12 are grossly intact. Please refer to medication reconciliation sheet for a list of medications. The impression and plan of care has been dictated by Olimpia Quiñones, Nurse Practitioner as directed. Dr. Tony MD I have performed a history and examination and MDM of this patient, discussed the same with the dictator, and agree with the dictator's assessment and plan as written ,documented as a scribe. Based on total visit time, I have performed more than 50% of the visit. Patient Condition at Discharge: Stable Plan - Discharge Summary New Discharge Prescriptions: New Pantoprazole [Protonix] 40 mg PO DAILY #30 tab Continue Atorvastatin [Lipitor] 80 mg PO DAILY Donepezil [Aricept] 10 mg PO HS Multivitamins, Thera [Multivitamin (formulary)] 1 tab PO DAILY Oxybutynin Chloride [oxyBUTYnin chloride ER] 10 mg PO DAILY Sertraline [Zoloft] 50 mg PO DAILY Ondansetron Odt [Zofran ODT] 4 mg PO TID PRN PRN Reason: Nausea And Vomiting Imatinib Mesylate 400 mg PO DAILY Apixaban [Eliquis] 5 mg PO BID Insulin Glargine,Hum.rec.anlog [Tousteve Solostar] 24 units SQ DAILY #0 Cholestyramine/Aspartame [Cholestyramine Light Powder] 4 gm PO DAILY PRN PRN Reason: Gi Upset amLODIPine [Norvasc] 5 mg PO DAILY Omeprazole 40 mg PO DAILY INSULIN LISPRO (humaLOG) [humaLOG] 9 units SQ AC-TID Discharge Medication List Atorvastatin [Lipitor] 80 mg PO DAILY 04/14/20 [History] Donepezil [Aricept] 10 mg PO HS 04/14/20 [History] Multivitamins, Thera [Multivitamin (formulary)] 1 tab PO DAILY 04/14/20 [History] Oxybutynin Chloride [oxyBUTYnin chloride ER] 10 mg PO DAILY 04/14/20 [History] Sertraline [Zoloft] 50 mg PO DAILY 04/14/20 [History] Insulin Glargine,Hum.rec.anlog [Toujeo Solostar] 24 units SQ DAILY #0 09/04/23 [Rx] Apixaban [Eliquis] 5 mg PO BID 11/09/23 [History] Cholestyramine/Aspartame [Cholestyramine Light Powder] 4 gm PO DAILY PRN 11/09/23 [History] INSULIN LISPRO (humaLOG) [humaLOG] 9 units SQ AC-TID 11/09/23 [History] Imatinib Mesylate 400 mg PO DAILY 11/09/23 [History] Omeprazole 40 mg PO DAILY 11/09/23 [History] Ondansetron Odt [Zofran ODT] 4 mg PO TID PRN 11/09/23 [History] amLODIPine [Norvasc] 5 mg PO DAILY 11/09/23 [History] Pantoprazole [Protonix] 40 mg PO DAILY #30 tab 11/11/23 [Rx] Follow up Appointment(s)/Referral(s): Bonnie Barraza MD [Primary Care Provider] - 1-2 days [facility] [NON-STAFF] - 11/19/23 3:00 pm [facility] [NON-STAFF] - 1-2 Days (resumption of care, will call for appointment any question please call agency. ) Gal Sandoval MD [STAFF PHYSICIAN] - 11/19/23 1:10 pm Patient Instructions/Handouts: Hypokalemia (DC), Hypomagnesemia (DC) Activity/Diet/Wound Care/Special Instructions: Activity limited until follow-up Follow-up with primary care provider on discharge Follow-up with oncology outpatient Follow-up with general surgery outpatient Continue with current diet Continue monitoring blood sugars closely and keep a diary of readings and hold insulin if blood sugar is 100 or less and recheck Discharge Disposition: HOME WITH HOME HEALTH SERVICES
== END 2023-11-11 16:30 | disposition home health service (06) ==
LOC: EC 21:10 → UNDOADMOB 21:43 → 6NMEDSUR 21:43 → EC 22:32 → INTOOBSV 11-10 12:37 → OBSVTOIN 11-10 12:37 → UNDODISOB 11-11 16:30 → EC 11-11 16:30 → UNDODISIN 11-11 16:30
PROVIDERS: ATTEND Physician Assistant
DX: K29.50 Unspecified chronic gastritis without bleeding (principal); R53.1 Weakness; E87.6 Hypokalemia; E83.42 Hypomagnesemia; E83.51 Hypocalcemia; C49.A3 Gastrointestinal stromal tumor of small intestine; E11.622 Type 2 diabetes mellitus with other skin ulcer; L98.491 Non-pressure chronic ulcer of skin of other sites limited to breakdown of skin; E11.649 Type 2 diabetes mellitus with hypoglycemia without coma; R13.10 Dysphagia, unspecified; R63.8 Other symptoms and signs concerning food and fluid intake; K21.9 Gastro-esophageal reflux disease without esophagitis; I10 Essential (primary) hypertension; F41.9 Anxiety disorder, unspecified; F32.A Depression, unspecified; Z85.46 Personal history of malignant neoplasm of prostate; Z87.891 Personal history of nicotine dependence; Z90.49 Acquired absence of other specified parts of digestive tract; Z92.3 Personal history of irradiation; Z95.0 Presence of cardiac pacemaker; Z79.899 Other long term (current) drug therapy; Z79.82 Long term (current) use of aspirin; Z79.4 Long term (current) use of insulin; Z79.01 Long term (current) use of anticoagulants
CPT/HCPCS: 96376 ×3; 96366 ×2; 96372 ×3; 96375; 96368; 96365; 96367; 99285; 36415; 93005; 97161; 97166; 88305; 80053 ×4; 80048; 83735 ×3; 84132; 85025 ×4; 88342; 83036; 71045; 71250; 74176; 43239; J1644 ×3; J2001; J3475 ×2; J3480 ×2; J2704; C9113 ×3

== ENCOUNTER 2023-11-29 08:51 | Inpatient (IN) | payer MEDICARE ==
--- NOTE | 2023-11-29 09:13 | ED ---
General Adult HPI - General Chief complaint: Recheck/Abnormal Lab/Rx Stated complaint: Abd labs Time Seen by Provider: 11/29/23 09:00 Source: patient, RN notes reviewed Mode of arrival: ambulatory Limitations: no limitations - History of Present Illness Initial comments: 83-year-old male presents emergency department chief complaint of low potassium. Patient states that he had this in the past is a recurrent issue secondary to chronic diarrhea he states he had multiple testing with no resolution of his symptoms he states he has placed on Imodium which has not helped. He does admit that he feels rundown, weak at this time denies chest pain shortness of breath headache dizziness abdominal pain. - Related Data Home Medications Medication Instructions Recorded Confirmed Atorvastatin [Lipitor] 80 mg PO DAILY 04/14/20 11/09/23 Donepezil [Aricept] 10 mg PO HS 04/14/20 11/09/23 Multivitamins, Thera [Multivitamin 1 tab PO DAILY 04/14/20 11/09/23 (formulary)] Oxybutynin Chloride [oxyBUTYnin 10 mg PO DAILY 04/14/20 11/09/23 chloride ER] Sertraline [Zoloft] 50 mg PO DAILY 04/14/20 11/09/23 Apixaban [Eliquis] 5 mg PO BID 11/09/23 11/09/23 Cholestyramine/Aspartame 4 gm PO DAILY PRN 11/09/23 11/09/23 [Cholestyramine Light Powder] INSULIN LISPRO (humaLOG) [humaLOG] 9 units SQ AC-TID 11/09/23 11/09/23 Imatinib Mesylate 400 mg PO DAILY 11/09/23 11/09/23 Omeprazole 40 mg PO DAILY 11/09/23 11/09/23 Ondansetron Odt [Zofran ODT] 4 mg PO TID PRN 11/09/23 11/09/23 amLODIPine [Norvasc] 5 mg PO DAILY 11/09/23 11/09/23 Previous Rx's Medication Instructions Recorded Insulin Glargine,Hum.rec.anlog 24 units SQ DAILY #0 09/04/23 [Toujeo Solostar] Pantoprazole [Protonix] 40 mg PO DAILY #30 tab 11/11/23 Allergies Allergy/AdvReac Type Severity Reaction Status Date / Time No Known Allergies Allergy Verified 11/29/23 08:56 Review of Systems ROS Statement: Those systems with pertinent positive or pertinent negative responses have been documented in the HPI. ROS Other: All systems not noted in ROS Statement are negative. Past Medical History Past Medical History: Cancer, Diabetes Mellitus, GERD/Reflux, Hypertension Additional Past Medical History / Comment(s): heart murmur, prostate cancer with radiation History of Any Multi-Drug Resistant Organisms: None Reported Past Surgical History: Hernia Repair, Joint Replacement, Orthopedic Surgery Additional Past Surgical History / Comment(s): esophageal surgery, lt ankle surgery,lt knee replacement Past Anesthesia/Blood Transfusion Reactions: No Reported Reaction Type of Cardiac Device: Permanent Pacemaker Device Placement Date:: unknwn Past Psychological History: Anxiety, Depression Smoking Status: Former smoker Past Alcohol Use History: None Reported Past Drug Use History: None Reported - Past Family History Mother Family Medical History: Hypertension General Exam Limitations: no limitations General appearance: alert, in no apparent distress Head exam: Present: atraumatic, normocephalic, normal inspection Eye exam: Present: normal appearance, PERRL, EOMI. Absent: scleral icterus, conjunctival injection, periorbital swelling ENT exam: Present: normal exam, normal oropharynx, mucous membranes moist Neck exam: Present: normal inspection, full ROM. Absent: tenderness, meningismus, lymphadenopathy Respiratory exam: Present: normal lung sounds bilaterally. Absent: respiratory distress, wheezes, rales, rhonchi, stridor Cardiovascular Exam: Present: regular rate, normal rhythm, normal heart sounds. Absent: systolic murmur, diastolic murmur, rubs, gallop, clicks GI/Abdominal exam: Present: soft, normal bowel sounds. Absent: distended, tenderness, guarding, rebound, rigid Course Vital Signs 11/29/23 11/29/23 08:54 09:03 Temperature 98.5 F Pulse Rate 72 Pulse Rate [ 72 Track Welder ] Respiratory 18 Rate Blood Pressure 138/76 O2 Sat by Pulse 99 Oximetry EKG Findings - EKG Comments: EKG Findings:: EKG performed at 9: 14 ventricular paced rate of 82 QRS 145, QT/QTc 421/460 - EKG Results: EKG: interpreted by ALEX Medical Decision Making - Medical Decision Making Was pt. sent in by a medical professional or institution (, PA, CUE SELECTOR, urgent care, hospital, or prison...) When possible be specific @ -No Did you speak to anyone other than the patient for history (EMS, parent, family, police, friend...)? What history was obtained from this source @ -No Did you review nursing and triage notes (agree or disagree)? Why? @ -I reviewed and agree with nursing and triage notes Were old charts reviewed (outside hosp., previous admission, EMS record, old EKG, old radiological studies, urgent care reports/EKG's, prison records)? Report findings @ -No old charts were reviewed Differential Diagnosis (chest pain, altered mental status, abdominal pain women, abdominal pain men, vaginal bleeding, weakness, fever, dyspnea, syncope, headache, dizziness, GI bleed, back pain, seizure, CVA, palpatations, mental health, musculoskeletal)? @ -Differential Weakness: Hypoglycemia, shock, sepsis, hyponatremia, anemia, infection, IL, ETOH, adverse medicine reaction, overdose, stroke, this is not meant to be an all-inclusive list. EKG interpreted by me (3pts min.). @ -As above X-rays interpreted by me (1pt min.). @ -None done CT interpreted by me (1pt min.). @ -None done U/S interpreted by me (1pt. min.). @ -None done What testing was considered but not performed or refused? (CT, X-rays, U/S, labs)? Why? @ -None What meds were considered but not given or refused? Why? @ -None Did you discuss the management of the patient with other professionals (professionals i.e. , PA, CUE SELECTOR, lab, RT, psych nurse, social worker assistant, legal counsel, teacher, traffic maintenance officer, senior case manager)? Give summary @ -Sound physician for admission for hypokalemia, hypomagnesemia requiring extensive replacement Was smoking cessation discussed for >3mins.? @ -No Was critical care preformed (if so, how long)? @ -35 minutes Were there social determinants of health that impacted care today? How? (Homelessness, low income, unemployed, alcoholism, drug addiction, transportation, low edu. Level, literacy, decrease access to med. care, fpc, rehab)? @ -No Was there de-escalation of care discussed even if they declined (Discuss DNR or withdrawal of care, Hospice)? DNR status @ -No What co-morbidities impacted this encounter? (DM, HTN, Smoking, COPD, CAD, Cancer, CVA, ARF, Chemo, Hep., AIDS, mental health diagnosis, sleep apnea, mor bid obesity)? @ -None Was patient admitted / discharged? Hospital course, mention meds given and rou te, prescriptions, significant lab abnormalities, going to OR and other pertinent info. @ -Admitted patient found to have potassium 2.3, mag 0.8 patient was started on replacement protocols including oral and IV replacement of potassium, magnesium. Patient will require extensive replacement, rechecking of laboratory studies and close monitoring. Undiagnosed new problem with uncertain prognosis? @ -No Drug Therapy requiring intensive monitoring for toxicity (Heparin, Nitro, Insulin, Cardizem)? @ -No Were any procedures done? @ -No Diagnosis/symptom? @ -Hypomagnesemia, hypokalemia Acute, or Chronic, or Acute on Chronic? @ -Acute Uncomplicated (without systemic symptoms) or Complicated (systemic symptoms)? @ -Complicated Side effects of treatment? @ -No Exacerbation, Progression, or Severe Exacerbation? @ -No Poses a threat to life or bodily function? How? (Chest pain, USA, IL, pneumonia, PE, COPD, DKA, ARF, appy, cholecystitis, CVA, Diverticulitis, Homicidal, Suicidal, threat to staff... and all critical care pts) @Yes because cardiac dysrhythmia - Lab Data Result diagrams: 11/29/23 09:16 11/29/23 09:16 Lab Results 11/29/23 11/29/23 Range/Units 09:16 09:16 WBC 5.0 (3.8-10.6) k/uL RBC 4.06 L (4.30-5.90) m/uL Hgb 12.5 L (13.0-17.5) gm/dL Hct 37.7 L (39.0-53.0) % MCV 92.8 (80.0-100.0) fL MCH 30.8 (25.0-35.0) pg MCHC 33.2 (31.0-37.0) g/dL RDW 17.7 H (11.5-15.5) % Plt Count 230 (150-450) k/uL MPV 8.2 Neutrophils % (Manual) 76 % Lymphocytes % (Manual) 15 % Monocytes % (Manual) 8 % Eosinophils % (Manual) 1 % Neutrophils # (Manual) 3.80 (1.3-7.7) k/uL Lymphocytes # (Manual) 0.75 L (1.0-4.8) k/uL Monocytes # (Manual) 0.40 (0-1.0) k/uL Eosinophils # (Manual) 0.05 (0-0.7) k/uL Nucleated RBCs 0 (0-0) /100 WBC Manual Slide Review Performed Poikilocytosis Slight Anisocytosis Slight Sodium 142 (137-145) mmol/L Potassium 2.3 L* (3.5-5.1) mmol/L Chloride 114 H (98-107) mmol/L Carbon Dioxide 25 (22-30) mmol/L Anion Gap 3 mmol/L BUN 18 (9-20) mg/dL Creatinine 0.97 (0.66-1.25) mg/dL Est GFR (CKD-EPI)AfAm 83 (>60 ml/min/1.73 sqM) Est GFR (CKD-EPI)NonAf 72 (>60 ml/min/1.73 sqM) Glucose 107 H (74-99) mg/dL Calcium 7.6 L (8.4-10.2) mg/dL Magnesium 0.8 L* (1.6-2.3) mg/dL Total Bilirubin 0.5 (0.2-1.3) mg/dL AST 22 (17-59) U/L ALT 14 (4-49) U/L Alkaline Phosphatase 135 H (38-126) U/L Total Protein 5.7 L (6.3-8.2) g/dL Albumin 2.6 L (3.5-5.0) g/dL Critical Care Time Critical Care Time: Yes Total Critical Care Time: 35 Disposition Clinical Impression: Hypokalemia, Hypomagnesemia, Chronic diarrhea [facility] Condition: Fair Referrals: Bonnie Barraza MD [Primary Care Provider] - 1-2 days Time of Disposition: 11:06
[2023-11-29 09:41] LABS: Anisocytosis Slight; HCT 37.7 % (39.0-53.0); HGB 12.5 gm/dL (13.0-17.5); MCH 30.8 pg (25.0-35.0); MCHC 33.2 g/dL (31.0-37.0); MCV 92.8 fL (80.0-100.0); Mean Platelet Volume 8.2; Platelet Count 230 k/uL (150-450); Poikilocytosis Slight; RBC 4.06 m/uL (4.30-5.90); RDW 17.7 % (11.5-15.5)
[2023-11-29 09:45] LABS: ALT 14 U/L (4-49); AST 22 U/L (17-59); African American GFR (CKD) 83 (>60 ml/min/1.73 sqM); Albumin 2.6 g/dL (3.5-5.0); Alkaline Phosphatase 135 U/L (38-126); Anion Gap 3 mmol/L; Blood Urea Nitrogen 18 mg/dL (9-20); Calcium 7.6 mg/dL (8.4-10.2); Carbon Dioxide 25 mmol/L (22-30); Chloride 114 mmol/L (98-107); Glucose 107 mg/dL (74-99); Non-African American GFR(CKD) 72 (>60 ml/min/1.73 sqM); Sodium 142 mmol/L (137-145); Total Bilirubin 0.5 mg/dL (0.2-1.3); Total Protein 5.7 g/dL (6.3-8.2)
[2023-11-29 09:47] LABS: Magnesium 0.8 mg/dL (1.6-2.3); Potassium 2.3 mmol/L (3.5-5.1)
[2023-11-29] MEDS ORDERED: Potassium Replacement Protocol 1 EACH MISC MISCELLANE PRN (09:52)
[2023-11-29] MEDS ORDERED: Magnesium Replacement Protocol 1 EACH MISC MISCELLANE PRN (09:53)
[2023-11-29 10:05] LABS: Eosinophils # (M) 0.05 k/uL (0-0.7); Lymphocytes # (M) 0.75 k/uL (1.0-4.8); Neutrophils % (M) 76 %; Nucleated Red Blood Cells 0 /100 WBC (0-0); Total Cells Counted 100
[2023-11-29] MEDS: MAGNESIUM SULFATE-D5W PMX 1 GM in DEXTROSE/WATER 1 100ML.BAG IVPB SCH (10:35)
[2023-11-29] MEDS: POTASSIUM CHLORIDE 20 MEQ in WATER FOR INJECTION 1 100ML.BAG IVPB SCH (10:36)
[2023-11-29] MEDS: POTASSIUM CHLORIDE ER 20 MEQ TAB.ER PO SCH ×2 (10:36→20:09)
[2023-11-29] MEDS ORDERED: ONDANSETRON 4 MG/2 ML VIAL IVP PRN (11:06)
[2023-11-29] MEDS ORDERED: ACETAMINOPHEN TAB 325 MG TAB PO PRN (11:06)
[2023-11-29] MEDS ORDERED: NALOXONE 0.4 MG/ML 1 ML VIAL IV PRN (11:06)
[2023-11-29] MEDS ORDERED: ONDANSETRON ODT 4 MG TAB PO PRN (11:20)
[2023-11-29] MEDS ORDERED: CHOLESTYRAMINE (WITH SUGAR) 4 GM PACKET PO PRN (11:20)
--- NOTE | 2023-11-29 12:27 | P.HPIM ---
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 Patient reports since having his small bowel tumor resection and colectomy in July he has had persistent diarrhea which is worsened since initiation of chemotherapy. Patient presented to the emergency department today secondary to concerns of abnormal electrolyte levels. Patient reports he was called by his doctor and told he needed to go to the hospital for a very abnormal potassium. Patient reports he feels fatigued, having a decreased appetite and generally rundown and weak but otherwise denies having any pain or complaints. 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 He denies having any fevers, chills, diaphoresis, headache, lightheadedness, dizziness, chest pain, palpitations, shortness of breath, cough or congestion, nausea or vomiting, abdominal pain or discomfort, or experiencing any focal numbness/tingling/weakness/swelling in his extremities. Patient reports his midline abdominal incision has been healing well and he had his wound VAC removed. Surgical incision is intact and appears to be healing well. Upon arrival to our facility, patient underwent evaluation in the emergency department. Vital signs upon arrival show blood pressure 138/76, heart rate 72, respiratory rate 18, temp 98.5 F, and SpO2 of 99% on room air. EKG completed showing ventricular paced rhythm at 82 bpm. Labs completed and reviewed. CBC showing normocytic anemia with hemoglobin of 12.5. BMP showing severe hypokalemia with potassium of 2.3, hyperchloremia with chloride of 114, and severe hypomagnesemia with magnesium of 0.8. Liver profile showing elevated alkaline phosphatase of 135. Electrolytes replaced, patient admitted under our services with consultation to oncology. Review of systems: Pertinent positives and negatives as discussed in HPI, a complete review of systems was performed and all other systems are negative. Physical exam: Vital signs reviewed and stable. General: Nontoxic, no distress and appears stated age. Derm: Skin warm and dry, normal coloration for ethnicity. Head: Atraumatic, normocephalic and symmetric. Eyes: EOMs intact, no lid lag, and anicteric sclera Mouth: no lip lesions, mucus membranes moist Cardiovascular: regular rate and rhythm with normal S1S2, systolic murmur, positive posterior tibial pulses bilaterally, and cap refill < 2 seconds. Lungs: Respirations even, regular, and unlabored on room air. Lungs CTA bilaterally, no rhonchi, no rales, no wheezing, and no accessory muscle usage. Abdominal: soft, nontender to palpation, no guarding, no appreciable organomegaly. Surgical incision to midline abdomen and healing stages with small area of scab/eschar in the center. No dehiscence, erythema, or drainage noted. Ext: ROM intact. No gross muscle atrophy, no edema, no contractures Neuro: Speech clear, face symmetrical and CN II-XII grossly intact with no noted focal neuro deficits Psych: Alert and oriented to person, place, time, and situation. Appropriate and pleasant affect. 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 -Potassium and magnesium were replaced and repeat lab draws to be completed at 6 PM after completion of IV replacement. Will continue to monitor closely and replace any electrolyte abnormalities as indicated based upon these findings. -Patient started on cholestyramine 4 g 4 times daily with meals and at bedtime. -Oncology starting patient on Imodium 2 mg 4 times daily as needed for diarrhea. -Consult placed to patient's oncologist, Dr. Childress. Hypoglycemia -Patient had episode of hypoglycemia with glucose dropping down to 60s. Likely secondary to his administration of his long-acting insulin at home this morning prior to arrival and persistent diarrhea with decreased oral intake. -Will hold long-acting insulin glargine as well as scheduled Humalog and place patient on glycemic protocol with NovoLog sliding scale. -Patient also started on D5 0.45 infusion at 75 cc/h. Hypertension Hyperlipidemia History of third-degree heart block status post permanent pacemaker placement -Continue daily medication regimen with amlodipine 10 mg daily, 81 mg daily, atorvastatin 80 mg, and losartan 100 mg nightly. Dementia Anxiety and depression Continue daily medication regimen with Aricept 10 mg nightly and sertraline 50 mg daily. Dilated ascending aortic root -Continue to follow-up outpatient with agricultural research technologist for long-term monitoring and/or management if indicated. Paroxysmal atrial fibrillation History of third-degree heart block status post pacemaker placement. Hypertension Hyperlipidemia -Continue anticoagulation with Eliquis 5 mg twice daily. -Continue cardiac medication regimen with Norvasc 5 mg daily and atorvastatin 80 mg daily. Data and imaging reviewed: -As stated above in HPI The patient is admitted with an anticipated greater than 2 midnight stay for evaluation of severe electrolyte abnormalities with intractable chemotherapy induced diarrhea CODE STATUS: Full code DVT prophylaxis: Eliquis Anticipated discharge date: Clinical course to determine Anticipated discharge place: Clinical course to determine Patient was seen independently by Nurse Practitioner. This document was prepared using [employer] dictation software. Please allow for errors in operator bearer systems while rare they do occur. I reviewed the documentation as provided by the TERE above, who is the original author of this note. I agree with the documented assessment and plan, with the following changes: none Past Medical History Past Medical History: Cancer, Diabetes Mellitus, GERD/Reflux, Hypertension Additional Past Medical History / Comment(s): heart murmur, prostate cancer with radiation History of Any Multi-Drug Resistant Organisms: None Reported Past Surgical History: Hernia Repair, Joint Replacement, Orthopedic Surgery Additional Past Surgical History / Comment(s): esophageal surgery, lt ankle surgery,lt knee replacement Past Anesthesia/Blood Transfusion Reactions: No Reported Reaction Type of Cardiac Device: Permanent Pacemaker Device Placement Date:: unknwn Past Psychological History: Anxiety, Depression Smoking Status: Former smoker Past Alcohol Use History: None Reported Past Drug Use History: None Reported - Past Family History Mother Family Medical History: Hypertension Medications and Allergies Home Medications Medication Instructions Recorded Confirmed Type Atorvastatin [Lipitor] 80 mg PO DAILY 04/14/20 11/29/23 History Donepezil [Aricept] 10 mg PO HS 04/14/20 11/29/23 History Multivitamins, Thera [Multivitamin 1 tab PO DAILY 04/14/20 11/29/23 History (formulary)] Oxybutynin Chloride [oxyBUTYnin 10 mg PO DAILY 04/14/20 11/29/23 History chloride ER] Sertraline [Zoloft] 50 mg PO DAILY 04/14/20 11/29/23 History Apixaban [Eliquis] 5 mg PO BID 11/09/23 11/29/23 History Imatinib Mesylate 400 mg PO DAILY 11/09/23 11/29/23 History Omeprazole 40 mg PO DAILY 11/09/23 11/29/23 History Ondansetron Odt [Zofran ODT] 4 mg PO TID PRN 11/09/23 11/29/23 History amLODIPine [Norvasc] 5 mg PO DAILY 11/09/23 11/29/23 History Pantoprazole [Protonix] 40 mg PO DAILY #30 tab 11/11/23 11/29/23 Rx Mirtazapine [Mirtazapine Soluspan] 15 mg PO HS 11/29/23 11/29/23 History Cholestyramine (with Sugar) 4 gm PO ACHS 30 Days #120 packet 12/02/23 Rx [Questran Packet] Magnesium Oxide [Mag-Ox] 400 mg PO DAILY #30 tablet 12/02/23 Rx Potassium Chloride [K-Tab ER] 20 meq PO DAILY 30 Days #30 tab 12/02/23 Rx Allergies Allergy/AdvReac Type Severity Reaction Status Date / Time No Known Allergies Allergy Verified 11/29/23 11:05 Physical Exam Vitals: Vital Signs Temp Pulse Pulse Resp BP Pulse Ox 11/29/23 09:03 72 11/29/23 08:54 98.5 F 72 18 138/76 99 Intake and Output 11/28/23 11/29/23 11/29/23 22:59 06:59 14:59 Other: Weight 81.647 kg Results CBC & Chem 7: 12/01/23 06:15 12/02/23 05:53 Labs: Abnormal Lab Results - Last 24 Hours (Table) 11/29/23 11/29/23 Range/Units 09:16 09:16 RBC 4.06 L (4.30-5.90) m/uL Hgb 12.5 L (13.0-17.5) gm/dL Hct 37.7 L (39.0-53.0) % RDW 17.7 H (11.5-15.5) % Lymphocytes # (Manual) 0.75 L (1.0-4.8) k/uL Potassium 2.3 L* (3.5-5.1) mmol/L Chloride 114 H (98-107) mmol/L Glucose 107 H (74-99) mg/dL Calcium 7.6 L (8.4-10.2) mg/dL Magnesium 0.8 L* (1.6-2.3) mg/dL Alkaline Phosphatase 135 H (38-126) U/L Total Protein 5.7 L (6.3-8.2) g/dL Albumin 2.6 L (3.5-5.0) g/dL
[2023-11-29] MEDS ORDERED: DEXTROSE 50% SYRINGE 50 ML IVP PRN (12:45)
[2023-11-29] MEDS: DEXTROSE 50% SYRINGE 50 ML IVP PRN (12:53)
[2023-11-29 14:41] LABS: Glucose,Whole Blood 151 mg/dL (70-110)
[2023-11-29] MEDS: CHOLESTYRAMINE (WITH SUGAR) 4 GM PACKET PO SCH (16:57)
[2023-11-29] MEDS ORDERED: LOPERAMIDE 2 MG CAP PO PRN (17:17)
[2023-11-29] MEDS: INSULIN ASPART (NovoLOG) 100 UNIT/ML VIAL SQ SCH ×2 (17:29→17:38)
[2023-11-29 17:39] LABS: Glucose,Whole Blood 62 mg/dL (70-110)
[2023-11-29 19:11] LABS: African American GFR (CKD) >90 (>60 ml/min/1.73 sqM); Anion Gap 3 mmol/L; Blood Urea Nitrogen 15 mg/dL (9-20); Calcium 7.4 mg/dL (8.4-10.2); Carbon Dioxide 22 mmol/L (22-30); Chloride 115 mmol/L (98-107); Glucose 70 mg/dL (74-99); Magnesium 1.8 mg/dL (1.6-2.3); Non-African American GFR(CKD) 81 (>60 ml/min/1.73 sqM); Potassium 2.8 mmol/L (3.5-5.1); Sodium 140 mmol/L (137-145)
--- NOTE | 2023-11-29 19:19 | US ---
EXAMINATION TYPE: US venous doppler duplex LE BI DATE OF EXAM: 11/29/2023 6:06 PM COMPARISON: NONE CLINICAL INDICATION: Male, 83 years old with history of BLE edema, hx cancer and DVT; Abnormal labs SIDE PERFORMED: Bilateral TECHNIQUE: The lower extremity deep venous system is examined utilizing real time linear array sonog en with graded compression, doppler sonography and color-flow sonography. VESSELS IMAGED: Common Femoral Vein Deep Femoral Vein Greater Saphenous Vein * Femoral Vein Popliteal Vein Small Saphenous Vein * Proximal Calf Veins (* superficial vessels) Right Leg: Negative for DVT Left Leg: Negative for DVT IMPRESSION: No evidence for DVT within the bilateral lower extremities imaged from the groin to the upper calves.
[2023-11-29] MEDS: DEXTROSE 5%-0.45% NACL 1,000 ML IV SCH (19:23)
[2023-11-29 20:44] LABS: Glucose,Whole Blood 38 mg/dL (70-110)
[2023-11-29] MEDS: DONEPEZIL 10 MG TAB PO SCH (21:04)
[2023-11-29] MEDS: MAGNESIUM SULFATE-D5W PMX 1 GM in DEXTROSE/WATER 1 100ML.BAG IVPB ONE (21:04)
[2023-11-29] MEDS: MIRTAZAPINE 15 MG TAB PO SCH (21:04)
[2023-11-29] MEDS: APIXABAN 5 MG TAB PO SCH (21:05)
[2023-11-29 21:06] LABS: Glucose,Whole Blood 32 mg/dL (70-110)
[2023-11-29 21:08] LABS: Glucose,Whole Blood 31 mg/dL (70-110)
[2023-11-29 21:28] LABS: Glucose,Whole Blood 50 mg/dL (70-110)
[2023-11-29] MEDS: POTASSIUM CHLORIDE 10 MEQ in WATER FOR INJECTION 1 100ML.BAG IVPB SCH (21:39)
[2023-11-29 21:52] LABS: Glucose,Whole Blood 85 mg/dL (70-110)
[2023-11-30 00:11] LABS: Glucose,Whole Blood 160 mg/dL (70-110)
[2023-11-30 04:02] LABS: Glucose,Whole Blood 99 mg/dL (70-110)
[2023-11-30] MEDS: PANTOPRAZOLE 40 MG TABLET PO SCH (06:35)
[2023-11-30 08:52] LABS: Glucose,Whole Blood 89 mg/dL (70-110)
[2023-11-30] MEDS ORDERED: INSULIN DETEMIR (LEVEMIR) 100 UNIT/ML SYR SQ SCH (09:00)
[2023-11-30] MEDS ORDERED: NON FORMULARY DRUG (Omeprazole [Omeprazole] 40 MG Capsule.Dr) PO SCH (09:00)
[2023-11-30] MEDS: OXYBUTYNIN 10 MG TAB.ER.24 PO SCH (09:10)
[2023-11-30] MEDS: amLODIPine 5 MG TAB PO SCH (09:10)
[2023-11-30] MEDS: MULTIVITAMINS, THERA 1 EACH TAB PO SCH (09:11)
[2023-11-30] MEDS: ATORVASTATIN 80 MG TAB PO SCH (09:11)
[2023-11-30] MEDS: SERTRALINE 50 MG TAB PO SCH (09:11)
[2023-11-30 09:15] LABS: Anisocytosis Slight; HCT 37.7 % (39.0-53.0); HGB 11.8 gm/dL (13.0-17.5); MCH 29.7 pg (25.0-35.0); MCHC 31.3 g/dL (31.0-37.0); Mean Platelet Volume 8.7; Platelet Count 230 k/uL (150-450); RBC 3.97 m/uL (4.30-5.90); RDW 17.6 % (11.5-15.5); WBC 3.5 k/uL (3.8-10.6)
[2023-11-30 09:33] LABS: ALT 12 U/L (4-49); African American GFR (CKD) >90 (>60 ml/min/1.73 sqM); Albumin 2.4 g/dL (3.5-5.0); Anion Gap 3 mmol/L; Blood Urea Nitrogen 12 mg/dL (9-20); Calcium 7.7 mg/dL (8.4-10.2); Carbon Dioxide 20 mmol/L (22-30); Chloride 118 mmol/L (98-107); Glucose 83 mg/dL (74-99); Non-African American GFR(CKD) 90 (>60 ml/min/1.73 sqM); Sodium 141 mmol/L (137-145); Total Bilirubin 0.7 mg/dL (0.2-1.3); Total Protein 5.5 g/dL (6.3-8.2)
[2023-11-30 09:34] LABS: AST 23 U/L (17-59); Alkaline Phosphatase 124 U/L (38-126); Magnesium 1.8 mg/dL (1.6-2.3); Potassium 3.5 mmol/L (3.5-5.1)
[2023-11-30 11:49] LABS: Glucose,Whole Blood 78 mg/dL (70-110)
[2023-11-30] MEDS: IMATINIB MESYLATE 400 MG PO SCH (11:50)
--- NOTE | 2023-11-30 12:20 | P.PN ---
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 Childress currently undergoing chemotherapy, third-degree heart block status post pacemaker placement, type 2 insulin-dependent diabetes mellitus, hypertension, hyperlipidemia, mild dementia and previously known dilated ascending aortic root. Patient reports since having his small bowel tumor resection and colectomy in July he has had persistent diarrhea which is worsened since initiation of chemotherapy. Patient presented to the emergency department today secondary to concerns of abnormal electrolyte levels. Patient reports he was called by his doctor and told he needed to go to the hospital for a very abnormal potassium. Patient reports he feels fatigued, having a decreased appetite and generally rundown and weak but otherwise denies having any pain or complaints. 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 He denies having any fevers, chills, diaphoresis, headache, lightheadedness, dizziness, chest pain, palpitations, shortness of breath, cough or congestion, nausea or vomiting, abdominal pain or discomfort, or experiencing any focal numbness/tingling/weakness/swelling in his extremities. Patient reports his midline abdominal incision has been healing well and he had his wound VAC removed. Surgical incision is intact and appears to be healing well. Upon arrival to our facility, patient underwent evaluation in the emergency department. Vital signs upon arrival show blood pressure 138/76, heart rate 72, respiratory rate 18, temp 98.5 F, and SpO2 of 99% on room air. EKG completed showing ventricular paced rhythm at 82 bpm. Labs completed and reviewed. CBC showing normocytic anemia with hemoglobin of 12.5. BMP showing severe hypokalemia with potassium of 2.3, hyperchloremia with chloride of 114, and severe hypomagnesemia with magnesium of 0.8. Liver profile showing elevated alkaline phosphatase of 135. Electrolytes replaced, patient admitted under our services with consultation to oncology. Physical exam: Patient seen and fully evaluated at bedside this morning. He reports continued diarrhea stating it is chronic but would not be specific if it has improved or worsened since his arrival. When asked if it has gotten worse he said yes since his chemotherapy but was unable to state if it is any better since arrival to our facility and starting on Questran. His has had recurrent episodes of hypoglycemia with glucose dropping as low as 31 throughout the night. Vital signs reviewed and stable. General: Nontoxic, no distress and appears stated age. Derm: Skin warm and dry, normal coloration for ethnicity. Head: Atraumatic, normocephalic and symmetric. Eyes: EOMs intact, no lid lag, and anicteric sclera Mouth: no lip lesions, mucus membranes moist Cardiovascular: regular rate and rhythm with normal S1S2, systolic murmur, positive posterior tibial pulses bilaterally, and cap refill < 2 seconds. Lungs: Respirations even, regular, and unlabored on room air. Lungs CTA bilaterally, no rhonchi, no rales, no wheezing, and no accessory muscle usage. Abdominal: soft, nontender to palpation, no guarding, no appreciable organomegaly. Surgical incision to midline abdomen and healing stages with smal l area of scab/eschar in the center. No dehiscence, erythema, or drainage noted. Ext: ROM intact. No gross muscle atrophy, no edema, no contractures Neuro: Speech clear, face symmetrical and CN II-XII grossly intact with no noted focal neuro deficits Psych: Alert and oriented to person, place, time, and situation. Appropriate and pleasant affect. 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 -Potassium and magnesium were replaced and repeat lab draws to be completed at 6 PM after completion of replacement. Will continue to monitor closely and replace any electrolyte abnormalities as indicated based upon these findings. -Continue cholestyramine 4 g 4 times daily with meals and at bedtime. -Oncology starting patient on Imodium 2 mg 4 times daily as needed for persistent diarrhea. -Oncology following, reviewed documentation in chart. Hypoglycemia, recurrent episodes of hypoglycemia Insulin-dependent diabetes mellitus -Patient has had recurrent episodes of hypoglycemia with lowest blood glucose documented of 31. Will increase D5 0.45 infusion to 100 cc/h. -Continue close monitoring of blood glucose levels every 4 hours Hypertension Hyperlipidemia History of third-degree heart block status post permanent pacemaker placement -Continue daily medication regimen with amlodipine 10 mg daily, 81 mg daily, atorvastatin 80 mg, and losartan 100 mg nightly. Dementia Anxiety and depression Continue daily medication regimen with Aricept 10 mg nightly and sertraline 50 mg daily. Dilated ascending aortic root -Continue to follow-up outpatient with sales representative public utilities for long-term monitoring and/or management if indicated. Paroxysmal atrial fibrillation History of third-degree heart block status post pacemaker placement. Hypertension Hyperlipidemia -Continue anticoagulation with Eliquis 5 mg twice daily. -Continue cardiac medication regimen with Norvasc 5 mg daily and atorvastatin 80 mg daily. Data and imaging reviewed: -CBC showing bicytopenia with WBC count of 3.5 and hemoglobin of 11.8. BMP showing sodium 141, potassium 3.5, chloride 118, bicarb 20, and anion gap of 3. Renal function was unremarkable. Magnesium 1.8. -Vital signs reviewed. Blood pressure 140/70, heart rate 61, respiratory rate 16, temp 97.8 F, and SpO2 of 97% on room air. CODE STATUS: Full code DVT prophylaxis: Eliquis Anticipated discharge date: Clinical course to determine Anticipated discharge place: Clinical course to determine Patient was seen independently by Nurse Practitioner. This document was prepared using [employer] dictation software. Please allow for errors in demand generator manager while rare they do occur. I reviewed the documentation as provided by the TERE above, who is the original author of this note. I agree with the documented assessment and plan, with the following changes: none Objective - Vital Signs Vital signs: Vital Signs Temp 96.6 F L 11/29/23 20:45 Pulse 65 11/30/23 04:19 Resp 16 11/30/23 04:19 BP 120/68 11/30/23 04:19 Pulse Ox 96 11/30/23 04:19 FiO2 Intake & Output 11/29/23 11/30/23 11/30/23 18:59 06:59 18:59 Weight 81.647 kg 81.647 kg Other: Voiding Method Toilet # Voids 1 # Bowel Movements 1 - Labs CBC & Chem 7: 12/01/23 06:15 12/02/23 05:53 Labs: Abnormal Lab Results - Last 24 Hours (Table) 11/29/23 11/29/23 11/29/23 Range/Units 09:16 09:16 14:40 RBC 4.06 L (4.30-5.90) m/uL Hgb 12.5 L (13.0-17.5) gm/dL Hct 37.7 L (39.0-53.0) % RDW 17.7 H (11.5-15.5) % Lymphocytes # (Manual) 0.75 L (1.0-4.8) k/uL Potassium 2.3 L* (3.5-5.1) mmol/L Chloride 114 H (98-107) mmol/L Glucose 107 H (74-99) mg/dL POC Glucose (mg/dL) 151 H (70-110) mg/dL Calcium 7.6 L (8.4-10.2) mg/dL Magnesium 0.8 L* (1.6-2.3) mg/dL Alkaline Phosphatase 135 H (38-126) U/L Total Protein 5.7 L (6.3-8.2) g/dL Albumin 2.6 L (3.5-5.0) g/dL 11/29/23 11/29/23 11/29/23 Range/Units 17:36 18:19 20:42 RBC (4.30-5.90) m/uL Hgb (13.0-17.5) gm/dL Hct (39.0-53.0) % RDW (11.5-15.5) % Lymphocytes # (Manual) (1.0-4.8) k/uL Potassium 2.8 L (3.5-5.1) mmol/L Chloride 115 H (98-107) mmol/L Glucose 70 L (74-99) mg/dL POC Glucose (mg/dL) 62 L 38 L (70-110) mg/dL Calcium 7.4 L (8.4-10.2) mg/dL Magnesium (1.6-2.3) mg/dL Alkaline Phosphatase (38-126) U/L Total Protein (6.3-8.2) g/dL Albumin (3.5-5.0) g/dL 11/29/23 11/29/23 11/29/23 Range/Units 21:05 21:07 21:27 RBC (4.30-5.90) m/uL Hgb (13.0-17.5) gm/dL Hct (39.0-53.0) % RDW (11.5-15.5) % Lymphocytes # (Manual) (1.0-4.8) k/uL Potassium (3.5-5.1) mmol/L Chloride (98-107) mmol/L Glucose (74-99) mg/dL POC Glucose (mg/dL) 32 L 31 L 50 L (70-110) mg/dL Calcium (8.4-10.2) mg/dL Magnesium (1.6-2.3) mg/dL Alkaline Phosphatase (38-126) U/L Total Protein (6.3-8.2) g/dL Albumin (3.5-5.0) g/dL 11/30/23 Range/Units 00:09 RBC (4.30-5.90) m/uL Hgb (13.0-17.5) gm/dL Hct (39.0-53.0) % RDW (11.5-15.5) % Lymphocytes # (Manual) (1.0-4.8) k/uL Potassium (3.5-5.1) mmol/L Chloride (98-107) mmol/L Glucose (74-99) mg/dL POC Glucose (mg/dL) 160 H (70-110) mg/dL Calcium (8.4-10.2) mg/dL Magnesium (1.6-2.3) mg/dL Alkaline Phosphatase (38-126) U/L Total Protein (6.3-8.2) g/dL Albumin (3.5-5.0) g/dL
[2023-11-30] MEDS: MAGNESIUM OXIDE 400 MG TAB PO STA (12:22)
[2023-11-30] MEDS: POTASSIUM CHLORIDE ER 20 MEQ TAB.ER PO STA (12:22)
[2023-11-30 16:16] LABS: Glucose,Whole Blood 106 mg/dL (70-110)
[2023-11-30 16:49] LABS: African American GFR (CKD) >90 (>60 ml/min/1.73 sqM); Anion Gap 5 mmol/L; Blood Urea Nitrogen 10 mg/dL (9-20); Calcium 7.7 mg/dL (8.4-10.2); Carbon Dioxide 20 mmol/L (22-30); Chloride 116 mmol/L (98-107); Glucose 110 mg/dL (74-99); Magnesium 1.7 mg/dL (1.6-2.3); Non-African American GFR(CKD) >90 (>60 ml/min/1.73 sqM); Potassium 3.4 mmol/L (3.5-5.1); Sodium 141 mmol/L (137-145)
[2023-11-30 20:05] LABS: Glucose,Whole Blood 126 mg/dL (70-110)
--- NOTE | 2023-11-30 23:29 | P.CONS ---
History of Present Illness - Reason for Consult Consult date: 11/29/23 GIST Requesting physician: Stanton Hall - Chief Complaint hypokalemia, diarrhea - History of Present Illness Mr. Thurston is an 83-year-old gentleman with a past medical history significant for complete heart block status post dual-chamber pacemaker on 04/11/2023, diabetes mellitus type 2, and achalasia, and gastrointestinal stromal tumor. He is a patient of Dr. Annamarie Childress. He initially presented with intermittent abdominal pain that started in June 2023 along with decreased appetite. While on vacation in [place] in July 2023, he had progressive abdominal pain and loose stool. CT of the abdomen and pelvis with IV contrast on 08/05/2023 at [facility] in [place], [place] noted large mass involving the ascending colon and cecum along with solid mass in the inferior right lobe of the liver and multiple other smaller lesions within the liver consistent with malignancy. There is no evidence of bowel obstruction. He underwent right colectomy with partial small bowel resection and open wedge liver biopsy of liver mass on 08/05/2023. 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 Mitotic rate was 40 mitoses per 5 mm with tumor size measuring 9 by 8 x 8 x 7 cm. Mesenteric radial margin was positive for tumor. 7 lymph nodes identified were negative for malignancy. Neoplastic cells were strongly positive for CD117, DOG1, and Ki-67 of 60%. Wedge biopsy of the right liver mass was consistent with metastatic gastrointestinal stromal tumor. Small bowel with explant noted focal acute peritonitis with perforation along with surgical mesh from prior hernia surrounded by granulomatous reaction. No evidence of malignancy was seen. He was discharged on 08/13/2023 and had wound VAC placement. 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 We previously discussed that with KIT exon 9 mutations tend to have higher overall response rate and progression free survival with higher doses of imatinib at 800 mg daily, but no increase in overall survival. He initiated imatinib 400 mg daily in September 2023. He did have hospitalization in October 2023 for hypokalemia likely secondary to diarrhea following surgery. Clinically, he is having increased lower extremity edema bilaterally along with persistent swelling of the left forearm, it was discussed that this could be a side effect of imatinib. We did discuss adding Lasix along with potentially having a brief holiday from [place]. Following discussion, he felt the lower extremity edema was not significantly limiting him at this time and would like to continue taking imatinib [address] scans on 12/23/2023. Patient was seen in clinic on 11/28/23 for f/u and lab studies showed potassium of 2.6, at which time patient was contacted and instructed to go to the ER for further evaluation. Patient has had ongoing issues with diarrhea since he underwent small bowel resection with right colectomy on 08/05/2023 but states since starting treatment diarrhea has worsened. He has taken Imodium with only minimal relief. He reports he is having loose stools approximately 5 times daily, with no acute changes in bowel movements. Denies blood and melena in stool. Also reports ongoing BLE edema, denies leg pain and erythema and warmth. On admission labs revealed potassium 2.3, magnesium 0.8. CBC showed WBC 5.0, hemoglobin 12.5, platelets 230,000. Creatinine 0.97, GFR 72. Magnesium and potassium supplementation has been ordered. Patient started on antidiarrheals. Hemodynamically stable, patient afebrile. Review of Systems 10 point ROS is negative except as stated in the HPI Past Medical History Past Medical History: Cancer, Diabetes Mellitus, GERD/Reflux, Hypertension Additional Past Medical History / Comment(s): heart murmur, prostate cancer with radiation History of Any Multi-Drug Resistant Organisms: None Reported Past Surgical History: Hernia Repair, Joint Replacement, Orthopedic Surgery Additional Past Surgical History / Comment(s): esophageal surgery, lt ankle surgery,lt knee replacement Past Anesthesia/Blood Transfusion Reactions: No Reported Reaction Type of Cardiac Device: Permanent Pacemaker Device Placement Date:: unknwn Past Psychological History: Anxiety, Depression Smoking Status: Former smoker Past Alcohol Use History: None Reported Past Drug Use History: None Reported - Past Family History Mother Family Medical History: Hypertension Medications and Allergies Home Medications Medication Instructions Recorded Confirmed Type Atorvastatin [Lipitor] 80 mg PO DAILY 04/14/20 11/29/23 History Donepezil [Aricept] 10 mg PO HS 04/14/20 11/29/23 History Multivitamins, Thera [Multivitamin 1 tab PO DAILY 04/14/20 11/29/23 History (formulary)] Oxybutynin Chloride [oxyBUTYnin 10 mg PO DAILY 04/14/20 11/29/23 History chloride ER] Sertraline [Zoloft] 50 mg PO DAILY 04/14/20 11/29/23 History Insulin Glargine,Hum.rec.anlog 24 units SQ DAILY #0 09/04/23 11/29/23 Rx [Toujeo Solostar] Apixaban [Eliquis] 5 mg PO BID 11/09/23 11/29/23 History Cholestyramine/Aspartame 4 gm PO DAILY PRN 11/09/23 11/29/23 History [Cholestyramine Light Powder] INSULIN LISPRO (humaLOG) [humaLOG] 9 units SQ AC-TID 11/09/23 11/29/23 History Imatinib Mesylate 400 mg PO DAILY 11/09/23 11/29/23 History Omeprazole 40 mg PO DAILY 11/09/23 11/29/23 History Ondansetron Odt [Zofran ODT] 4 mg PO TID PRN 11/09/23 11/29/23 History amLODIPine [Norvasc] 5 mg PO DAILY 11/09/23 11/29/23 History Pantoprazole [Protonix] 40 mg PO DAILY #30 tab 11/11/23 11/29/23 Rx Mirtazapine [Mirtazapine Soluspan] 15 mg PO HS 11/29/23 11/29/23 History Allergies Allergy/AdvReac Type Severity Reaction Status Date / Time No Known Allergies Allergy Verified 11/29/23 11:05 Physical Exam Vitals: Vital Signs Temp Pulse Pulse Resp BP Pulse Ox 11/29/23 09:03 72 11/29/23 08:54 98.5 F 72 18 138/76 99 Intake and Output 11/28/23 11/29/23 11/29/23 22:59 06:59 14:59 Other: Weight 81.647 kg - Constitutional General appearance: average body habitus, no acute distress - EENT Eyes: anicteric sclerae, EOMI ENT: hearing grossly normal - Respiratory Respiratory: bilateral: CTA - Cardiovascular Rhythm: regular Heart sounds: normal: S1, S2 leg Peripheral Edema: bilateral: 2+, Pitting - Gastrointestinal General gastrointestinal: soft, no tenderness - Integumentary Integumentary: no cyanotic, no jaundiced - Neurologic Neurologic: CNII-XII intact - Musculoskeletal Musculoskeletal: generalized weakness - Psychiatric Psychiatric: A&O x's 3 Results CBC & Chem 7: 11/30/23 08:21 11/30/23 15:57 Labs: Abnormal Lab Results - Last 24 Hours (Table) 11/29/23 11/29/23 Range/Units 09:16 09:16 RBC 4.06 L (4.30-5.90) m/uL Hgb 12.5 L (13.0-17.5) gm/dL Hct 37.7 L (39.0-53.0) % RDW 17.7 H (11.5-15.5) % Lymphocytes # (Manual) 0.75 L (1.0-4.8) k/uL Potassium 2.3 L* (3.5-5.1) mmol/L Chloride 114 H (98-107) mmol/L Glucose 107 H (74-99) mg/dL Calcium 7.6 L (8.4-10.2) mg/dL Magnesium 0.8 L* (1.6-2.3) mg/dL Alkaline Phosphatase 135 H (38-126) U/L Total Protein 5.7 L (6.3-8.2) g/dL Albumin 2.6 L (3.5-5.0) g/dL Assessment and Plan (1) Chronic diarrhea Current Visit: Yes Status: Acute Priority: Medium Code(s): K52.9 - NONINFECTIVE GASTROENTERITIS AND COLITIS, UNSPECIFIED SNOMED Code(s): 146684563 (2) Hypokalemia Current Visit: Yes Status: Acute Priority: High Code(s): E87.6 - HYPOKALEMIA SNOMED Code(s): 62914787 (3) Hypomagnesemia Current Visit: Yes Status: Acute Priority: High Code(s): E83.42 - HYPOMAGNESEMIA SNOMED Code(s): 686527050 (4) 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 Patient has had ongoing issues with diarrhea since he underwent small bowel resection with right colectomy on 08/05/2023 but states since starting treatment diarrhea has worsened. He has taken Imodium with only minimal relief. He reports he is having loose stools approximately 5 times daily, with no acute changes in bowel movements. Denies blood and melena in stool. -On admission labs revealed potassium 2.3, magnesium 0.8. CBC showed WBC 5.0, hemoglobin 12.5, platelets 230,000. Creatinine 0.97, GFR 72. Magnesium and potassium supplementation has been ordered. -Questran scheduled [facility]. If patient tolerates medication and diarrhea improves on regimen, will continue outpt to help better control diarrhea. Imodium prn also added to regimen. If Questran not improving symptoms will switch to Lomotil Metastatic gastrointestional stromal tumor: -Full history in HPI -He initiated imatinib 400 mg daily in September 2023 -Can continue imatinib inpt -Persisting lower extremity edema bilaterally, it was discussed that this could be a side effect of imatinib, and discussed adding Lasix along with potentially having a brief holiday from imatinib, however patient felt the lower extremity edema was not significantly limiting him and wanted to continue taking imatinib. -Will obtain BLE dopplers to r/o acute DVT -Staging CT scans on 12/23/2023 -Clinic f/u scheduled for 12/04 Doctor attests: I performed a history and physical examination of this patient, developed impression and plan of care. Discussed with dictator. I agree with dictators note, documented as a scribe.
[2023-11-30 23:44] LABS: Glucose,Whole Blood 162 mg/dL (70-110)
[2023-12-01 05:09] LABS: Glucose,Whole Blood 125 mg/dL (70-110)
[2023-12-01 07:19] LABS: Anisocytosis Slight; HCT 37.4 % (39.0-53.0); HGB 11.9 gm/dL (13.0-17.5); MCH 30.2 pg (25.0-35.0); MCHC 31.7 g/dL (31.0-37.0); MCV 95.3 fL (80.0-100.0); Macrocytosis Slight; Platelet Count 184 k/uL (150-450); RBC 3.92 m/uL (4.30-5.90); RDW 17.7 % (11.5-15.5); WBC 4.1 k/uL (3.8-10.6)
[2023-12-01 07:23] LABS: ALT 12 U/L (4-49); African American GFR (CKD) >90 (>60 ml/min/1.73 sqM); Anion Gap 4 mmol/L; Blood Urea Nitrogen 9 mg/dL (9-20); Calcium 7.6 mg/dL (8.4-10.2); Carbon Dioxide 19 mmol/L (22-30); Chloride 117 mmol/L (98-107); Glucose 157 mg/dL (74-99); Non-African American GFR(CKD) >90 (>60 ml/min/1.73 sqM); Sodium 140 mmol/L (137-145); Total Bilirubin 0.5 mg/dL (0.2-1.3); Total Protein 4.9 g/dL (6.3-8.2)
[2023-12-01 07:32] LABS: AST 21 U/L (17-59); Alkaline Phosphatase 115 U/L (38-126); Magnesium 1.5 mg/dL (1.6-2.3); Potassium 3.5 mmol/L (3.5-5.1)
[2023-12-01] MEDS: POTASSIUM CHLORIDE ER 20 MEQ TAB.ER PO STA (08:39)
[2023-12-01] MEDS: MAGNESIUM SULFATE-D5W PMX 1 GM in DEXTROSE/WATER 1 100ML.BAG IVPB SCH (08:39)
[2023-12-01 09:11] LABS: Glucose,Whole Blood 179 mg/dL (70-110)
[2023-12-01 11:52] LABS: Glucose,Whole Blood 257 mg/dL (70-110)
--- NOTE | 2023-12-01 14:04 | P.PN ---
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 Childress currently undergoing chemotherapy, third-degree heart block status post pacemaker placement, type 2 insulin-dependent diabetes mellitus, hypertension, hyperlipidemia, mild dementia and previously known dilated ascending aortic root. Patient reports since having his small bowel tumor resection and colectomy in July he has had persistent diarrhea which is worsened since initiation of chemotherapy. Patient presented to the emergency department today secondary to concerns of abnormal electrolyte levels. Patient reports he was called by his doctor and told he needed to go to the hospital for a very abnormal potassium. Patient reports he feels fatigued, having a decreased appetite and generally rundown and weak but otherwise denies having any pain or complaints. Patient states he feels anxious and upset over having to be in the hospital because his is disabled and he is her primary hemodialysis patient care specialist. He denies having any fevers, chills, diaphoresis, headache, lightheadedness, dizziness, chest pain, palpitations, shortness of breath, cough or congestion, nausea or vomiting, abdominal pain or discomfort, or experiencing any focal numbness/tingling/weakness/swelling in his extremities. Patient reports his midline abdominal incision has been healing well and he had his wound VAC removed. Surgical incision is intact and appears to be healing well. Upon arrival to our facility, patient underwent evaluation in the emergency department. Vital signs upon arrival show blood pressure 138/76, heart rate 72, respiratory rate 18, temp 98.5 F, and SpO2 of 99% on room air. EKG completed showing ventricular paced rhythm at 82 bpm. Labs completed and reviewed. CBC showing normocytic anemia with hemoglobin of 12.5. BMP showing severe hypokalemia with potassium of 2.3, hyperchloremia with chloride of 114, and severe hypomagnesemia with magnesium of 0.8. Liver profile showing elevated alkaline phosphatase of 135. Electrolytes replaced, patient admitted under our services with consultation to oncology. Physical exam: Patient seen and fully evaluated at bedside this morning. Patient appears to be doing well this morning. He excitedly reported that his diarrhea has significantly improved from at least 5-6 or more episodes daily down to only 1-2 episodes per day. Patient reports "I do not know how you guys did it, but I am not even incontinent of my stool anymore." Patient reports liquid stools have thickened up and currently reports feeling well this morning. His blood glucose levels are also better this morning resulting at 125. We will start to wean patient off of D5 infusion and continue to monitor blood glucose levels closely for any further signs of hypoglycemia. This was discussed with patient and he is in agreement with the plan of care anticipating likely discharge tomorrow morning. Vital signs reviewed and stable. General: Nontoxic, no distress and appears stated age. Derm: Skin warm and dry, normal coloration for ethnicity. Head: Atraumatic, normocephalic and symmetric. Eyes: EOMs intact, no lid lag, and anicteric sclera Mouth: no lip lesions, mucus membranes moist Cardiovascular: regular rate and rhythm with normal S1S2, systolic murmur, positive posterior tibial pulses bilaterally, and cap refill < 2 seconds. Lungs: Respirations even, regular, and unlabored on room air. Lungs CTA bilaterally, no rhonchi, no rales, no wheezing, and no accessory muscle usage. Abdominal: soft, nontender to palpation, no guarding, no appreciable organomegaly. Surgical incision to midline abdomen and healing stages with small area of scab/eschar in the center. No dehiscence, erythema, or drainage noted. Ext: ROM intact. No gross muscle atrophy, no edema, no contractures Neuro: Speech clear, face symmetrical and CN II-XII grossly intact with no noted focal neuro deficits Psych: Alert and oriented to person, place, time, and situation. Appropriate and pleasant affect. 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 -Potassium and magnesium were replaced and repeat lab draws to be completed tomorrow morning.. Will continue to replace any electrolyte abnormalities as indicated based upon these findings. -Continue cholestyramine 4 g 4 times daily with meals and at bedtime. -Oncology following, reviewed documentation in chart. Hypoglycemia, recurrent episodes of hypoglycemia Insulin-dependent diabetes mellitus -Patient was having recurrent episodes of hypoglycemia with lowest blood glucose documented of 31, he was placed on glycemic protocol and started on D5 0.45 infusion. -Recurrent episodes of hypoglycemia have resolved and blood glucose levels stable this morning resulting at 125. -We will start to wean patient off of D5 0.45% infusion and continue to monitor blood glucose levels closely for any further signs of hypoglycemia. Infusion decreased from 100 down to 75 this morning and will plan to decrease to 50 cc/h at lunch and so forth. -Continue close monitoring of blood glucose levels every 4 hours Hypertension Hyperlipidemia History of third-degree heart block status post permanent pacemaker placement -Continue daily medication regimen with amlodipine 10 mg daily, 81 mg daily, a torvastatin 80 mg, and losartan 100 mg nightly. Dementia Anxiety and depression Continue daily medication regimen with Aricept 10 mg nightly and sertraline 50 mg daily. Dilated ascending aortic root -Continue to follow-up outpatient with vice president safety for long-term monitoring and/or management if indicated. Paroxysmal atrial fibrillation History of third-degree heart block status post pacemaker placement. Hypertension Hyperlipidemia -Continue anticoagulation with Eliquis 5 mg twice daily. -Continue cardiac medication regimen with Norvasc 5 mg daily and atorvastatin 80 mg daily. Data and imaging reviewed: -CBC showing mild anemia with hemoglobin of 11.9. BMP showing sodium 140, potassium 3.5, chloride 117, bicarb 19, and anion gap of 4. Renal function was unremarkable. Magnesium 1.5. -Vital signs reviewed. Blood pressure 140/75, heart rate 56, respiratory rate 16, temp 97.7 F, and SpO2 of 97% on room air. CODE STATUS: Full code DVT prophylaxis: Eliquis Anticipated discharge date: Likely within the next 24 hours, weaning patient off of D5 0.45 infusion at this time. Will tolerate well well patient tolerates and for for any further episodes of hypoglycemia. Anticipated discharge place: Home Patient was seen independently by Nurse Practitioner. This document was prepared using [employer] dictation software. Please allow for errors in auto body estimator while rare they do occur. I reviewed the documentation as provided by the TERE above, who is the original author of this note. I agree with the documented assessment and plan, with the following changes: none Objective - Vital Signs Vital signs: Vital Signs Temp 98.3 F 12/01/23 01:23 Pulse 57 L 12/01/23 01:23 Resp 18 12/01/23 01:23 BP 135/68 12/01/23 01:23 Pulse Ox 96 12/01/23 01:23 FiO2 Intake & Output 11/30/23 12/01/23 12/01/23 18:59 06:59 18:59 Intake Total 1260 Output Total 750 300 Balance 510 -300 Weight 82 kg Intake: Intake, IV Titration 900 Amount Dextrose 5%-0.45% NaCl 1, 900 000 ml @ 100 mls/hr IV . Q10H [facility] Rx#:[id number] Oral 360 Output: Urine 750 300 Other: Voiding Method Toilet # Voids 1 2 # Bowel Movements 1 1 - Labs CBC & Chem 7: 12/01/23 06:15 12/02/23 05:53 Labs: Abnormal Lab Results - Last 24 Hours (Table) 11/30/23 11/30/23 11/30/23 Range/Units 08:21 08:21 15:57 WBC 3.5 L (3.8-10.6) k/uL RBC 3.97 L (4.30-5.90) m/uL Hgb 11.8 L (13.0-17.5) gm/dL Hct 37.7 L (39.0-53.0) % RDW 17.6 H (11.5-15.5) % Potassium 3.4 L (3.5-5.1) mmol/L Chloride 118 H 116 H (98-107) mmol/L Carbon Dioxide 20 L 20 L (22-30) mmol/L Creatinine 0.64 L 0.62 L (0.66-1.25) mg/dL Glucose 110 H (74-99) mg/dL POC Glucose (mg/dL) (70-110) mg/dL Calcium 7.7 L 7.7 L (8.4-10.2) mg/dL Magnesium (1.6-2.3) mg/dL Total Protein 5.5 L (6.3-8.2) g/dL Albumin 2.4 L (3.5-5.0) g/dL 11/30/23 11/30/23 12/01/23 Range/Units 20:04 23:42 05:07 WBC (3.8-10.6) k/uL RBC (4.30-5.90) m/uL Hgb (13.0-17.5) gm/dL Hct (39.0-53.0) % RDW (11.5-15.5) % Potassium (3.5-5.1) mmol/L Chloride (98-107) mmol/L Carbon Dioxide (22-30) mmol/L Creatinine (0.66-1.25) mg/dL Glucose (74-99) mg/dL POC Glucose (mg/dL) 126 H 162 H 125 H (70-110) mg/dL Calcium (8.4-10.2) mg/dL Magnesium (1.6-2.3) mg/dL Total Protein (6.3-8.2) g/dL Albumin (3.5-5.0) g/dL 12/01/23 12/01/23 Range/Units 06:15 06:15 WBC (3.8-10.6) k/uL RBC 3.92 L (4.30-5.90) m/uL Hgb 11.9 L (13.0-17.5) gm/dL Hct 37.4 L (39.0-53.0) % RDW 17.7 H (11.5-15.5) % Potassium (3.5-5.1) mmol/L Chloride 117 H (98-107) mmol/L Carbon Dioxide 19 L (22-30) mmol/L Creatinine 0.57 L (0.66-1.25) mg/dL Glucose 157 H (74-99) mg/dL POC Glucose (mg/dL) (70-110) mg/dL Calcium 7.6 L (8.4-10.2) mg/dL Magnesium 1.5 L (1.6-2.3) mg/dL Total Protein 4.9 L (6.3-8.2) g/dL Albumin 2.0 L (3.5-5.0) g/dL
[2023-12-01 16:48] LABS: Glucose,Whole Blood 249 mg/dL (70-110)
[2023-12-01] MEDS: INSULIN ASPART (NovoLOG) 100 UNIT/ML VIAL SQ SCH (17:25)
[2023-12-01 21:02] LABS: Glucose,Whole Blood 124 mg/dL (70-110)
[2023-12-02 03:19] LABS: Glucose,Whole Blood 118 mg/dL (70-110)
[2023-12-02 05:37] LABS: Glucose,Whole Blood 105 mg/dL (70-110)
[2023-12-02 09:13] LABS: Blood Urea Nitrogen 10.8 mg/dL (9.0-27.0); Carbon Dioxide 20.5 mmol/L (21.6-31.8); Chloride 112 mmol/L (96-109); Glucose 126 mg/dL (70-110); Magnesium 1.6 mg/dL (1.5-2.4); Potassium 3.5 mmol/L (3.5-5.5); Sodium 141 mmol/L (135-145)
[2023-12-02 10:11] LABS: Glucose,Whole Blood 206 mg/dL (70-110)
[2023-12-02 10:18] VITALS: PULSE 74
[2023-12-02 11:45] LABS: Glucose,Whole Blood 179 mg/dL (70-110)
[2023-12-02 14:16] VITALS: BP 132/66; RESP 17; TEMP 98.3
[2023-12-02] MEDS: MAGNESIUM SULFATE-D5W PMX 1 GM in DEXTROSE/WATER 1 100ML.BAG IVPB SCH (15:00)
[2023-12-02] MEDS: POTASSIUM CHLORIDE ER 20 MEQ TAB.ER PO STA (15:00)
--- NOTE | 2023-12-02 15:08 | P.PN ---
Subjective Progress Note Date: 12/02/23 Principal diagnosis: Diarrhea. Diagnosed with GIST, on imatinib. In f/u today pt reports no diarrhea since starting questran ATC. No BM since yesterday. Denies any abd pain, BLE were neg for DVT, still some swelling, mild/mod. Has some bruising, denies bleeding, hematochezia or melena. Objective - Vital Signs Vital signs: Vital Signs Temp 98.3 F 12/02/23 13:56 Pulse 74 12/02/23 13:56 Resp 17 12/02/23 13:56 BP 132/66 12/02/23 13:56 Pulse Ox 96 12/02/23 13:56 FiO2 Intake & Output 12/01/23 12/02/23 12/02/23 18:59 06:59 18:59 Intake Total 200 Output Total 100 Balance 100 Intake: Oral 200 Output: Urine 100 Other: Voiding Method Toilet Toilet Urinal Urinal # Voids 4 3 # Bowel Movements 1 - Constitutional General appearance: Present: average body habitus, cooperative, no acute distress - EENT Eyes: Present: anicteric sclerae, EOMI ENT: Present: hearing grossly normal - Respiratory Details: resp even and unlabored - Cardiovascular Details: skin warm and dry to touch - Peripheral edema leg Peripheral Edema: right: Trace, left: 1+ - Gastrointestinal Gastrointestinal Comment(s): midline scar is tight, ropey General gastrointestinal: Present: normal bowel sounds, soft. Absent: absent bowel sounds, decreased bowel sounds, distended, hepatomegaly, hyperactive bowel sounds, organomegaly, rigid, scaphoid, splenomegaly, tenderness, umbilical hernia, ventral hernia - Integumentary Integumentary: Present: normal - Neurologic Neurologic: Present: CNII-XII intact - Musculoskeletal Musculoskeletal: Present: generalized weakness, strength equal bilaterally - Psychiatric Psychiatric: Present: A&O x's 3, appropriate affect, intact judgment & insight - Labs CBC & Chem 7: 12/01/23 06:15 12/02/23 05:53 Labs: Abnormal Lab Results - Last 24 Hours (Table) 12/01/23 12/01/23 12/02/23 Range/Units 16:47 21:00 03:17 Chloride (96-109) mmol/L Carbon Dioxide (21.6-31.8) mmol/L Glucose (70-110) mg/dL POC Glucose (mg/dL) 249 H 124 H 118 H (70-110) mg/dL Calcium (8.7-10.3) mg/dL 12/02/23 12/02/23 12/02/23 Range/Units 05:53 10:09 11:44 Chloride 112 H (96-109) mmol/L Carbon Dioxide 20.5 L (21.6-31.8) mmol/L Glucose 126 H (70-110) mg/dL POC Glucose (mg/dL) 206 H 179 H (70-110) mg/dL Calcium 8.0 L (8.7-10.3) mg/dL - Imaging and Cardiology Venous US: report reviewed Assessment and Plan (1) Intractable diarrhea Current Visit: Yes Status: Acute Priority: High Code(s): R19.7 - DIARRHEA, UNSPECIFIED SNOMED Code(s): 824751688 (2) Hypokalemia Current Visit: Yes Status: Acute Priority: High Code(s): E87.6 - HYPOKALEMIA SNOMED Code(s): 27822846 (3) Hypomagnesemia Current Visit: Yes Status: Acute Priority: High Code(s): E83.42 - HYPOMAGNESEMIA SNOMED Code(s): 220798658 (4) 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 -Previously prescribed questran, did not take. Tried inpt and it is working very well. No diarrhea since yesterday, no BM yet today. He has questran at home, he will cont. -Sent to hospital for low K+ and mag levels found on routine labs-2/2 diarrhea. He has been supplemented and K+ and mag are normal, 3.5 and 1.6 respectively. Diarrhea now controlled -Cont questran scheduled. -Pt agrees with plan for treatment of diarrhea, he feels questran is working very well Metastatic gastrointestional stromal tumor: -Initiated on imatinib 400 mg daily in September 2023 -Has continued imatinib inpt. No new SE reported. Admitting symptoms resolving with treatment -Persisting lower extremity edema bilaterally. Doppler neg for DVT reviewed with pt. Possibly a side effect of imatinib. Pt does not feel that the swelling is severe enough at this time to add any other meds. -Re-staging CT scans sched for 12/23/2023. appt is sched for after scans for review -Treatment monitoring f/u scheduled for 12/04.
[2023-12-02 16:46] LABS: Glucose,Whole Blood 182 mg/dL (70-110)
--- NOTE | 2023-12-02 17:10 | P.DS ---
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 Secondary to chronic diarrhea worsened by chemotherapeutic agents. Patient started on Questran resulting in significant improvement of diarrhea and electrolytes were replaced. Patient is being sent home on oral magnesium and potassium supplements and prescription for repeat BMP and magnesium to be completed in 3 days. Acute on chronic intractable diarrhea, multifactorial as it is chronic from previous small bowel resection and colectomy and has been exacerbated by initiation of chemotherapeutic agents. Patient started on Questran 4 g 4 times daily with meals and at bedtime. Patient reports diarrhea significantly improved from previous 5-6 or more episodes of take down to 1 or 2 episodes daily. 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 Patient successfully weaned off D5 infusion and is tolerating oral intake and maintaining blood glucose levels. Insulin-dependent diabetes mellitus. Hemoglobin A1c 6.7%. Patient with recurrent episodes of hypoglycemia secondary to his reduced/poor oral intake since recent colectomy and initiation of chemotherapy. At this time recommending discontinuation of home insulin and close monitoring of blood glucose levels. Patient instructed if his blood glucose levels begin to elevate greater than 250s he will need to call/return to PCP for guidance on home insulin management and possible decreased dosing of previous insulin regimen. Hypertension. Continue daily medication regimen with amlodipine 10 mg daily and losartan 100 mg daily. Hyperlipidemia. Continue daily medication regimen with atorvastatin 80 mg daily. 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 Dementia. Continue daily medication regimen with Aricept 10 mg nightly. Anxiety and depression. Continue daily medication regimen with sertraline 50 mg daily. Dilated ascending aortic root Continue to follow-up outpatient with warehouse assistant for long-term monitoring and/or management if indicated. Paroxysmal atrial fibrillation. Continue anticoagulation with Eliquis 5 mg twice daily. History of third-degree heart block status post pacemaker placement. Hypertension. Continue Norvasc 5 mg daily. Hyperlipidemia. Continue atorvastatin 80 mg daily. Hospital Course: Patient is a very pleasant 83-year-old male with a past medical history of recently diagnosed metastatic gastrointestinal stromal cell cancer of small bowel status post colectomy in [place] on 08/05/2023 and following outpatient with Dr. Childress currently undergoing chemotherapy, third-degree heart block status post pacemaker placement, type 2 insulin-dependent diabetes mellitus, hypertension, hyperlipidemia, mild dementia and previously known dilated ascending aortic root. Patient reports since having his small bowel tumor r esection and colectomy in July he has had persistent diarrhea which is worsened since initiation of chemotherapy. Patient presented to the emergency department today secondary to concerns of abnormal electrolyte levels. Patient reports he was called by his doctor and told he needed to go to the hospital for a very abnormal potassium. Patient reports he feels fatigued, having a decreased appetite and generally rundown and weak but otherwise denies having any pain or complaints. Patient states he feels anxious and upset over having to be in the hospital because his is disabled and he is her primary chiropractic care. He denies having any fevers, chills, diaphoresis, headache, lightheadedness, dizziness, chest pain, palpitations, shortness of breath, cough or congestion, nausea or vomiting, abdominal pain or discomfort, or experiencing any focal numbness/tingling/weakness/swelling in his extremities. Patient reports his midline abdominal incision has been healing well and he had his wound VAC removed. Surgical incision is intact and appears to be healing well. Upon arrival to our facility, patient underwent evaluation in the emergency department. Vital signs upon arrival show blood pressure 138/76, heart rate 72, respiratory rate 18, temp 98.5 F, and SpO2 of 99% on room air. EKG completed showing ventricular paced rhythm at 82 bpm. Labs completed and reviewed. CBC showing normocytic anemia with hemoglobin of 12.5. BMP showing severe hypokalemia with potassium of 2.3, hyperchloremia with chloride of 114, and severe hypomagnesemia with magnesium of 0.8. Liver profile showing elevated alkaline phosphatase of 135. Electrolytes replaced, patient admitted under our services with consultation to oncology. Patient had recurrent episodes of hypoglycemia requiring placement on IV D5 0.45% infusion. After successful improvement in diarrhea patient was successfully weaned from D5 0.45% infusion and tolerating oral intake maintaining blood glucose levels around 170. Most recent hemoglobin A1c was 6.7%. With patient's decreased oral intake/appetite while undergoing chemotherapy, will recommend discontinuation of home insulin regimen at this time. Patient was educated on the importance of closely monitoring his blood glucose levels and notifying his PCP for guidance/decrease dosing if blood glucose elevate greater than 250s. At this time, [facility] Patient to follow-up with PCP in 1 to 2 days and with oncology as scheduled. Patient was discharged home with prescription for Questran packets, potassium chloride tablets, and magnesium oxide tablets. Patient have repeat BMP and magnesium levels completed in 3 days with results to be sent to PCP and oncology for follow-up and management. Physical exam: Vital signs reviewed and stable. General: Nontoxic, no distress and appears stated age. Derm: Skin warm and dry, normal coloration for ethnicity. Head: Atraumatic, normocephalic and symmetric. Eyes: EOMs intact, no lid lag, and anicteric sclera Mouth: no lip lesions, mucus membranes moist Cardiovascular: regular rate and rhythm with normal S1S2, systolic murmur, positive posterior tibial pulses bilaterally, and cap refill < 2 seconds. Lungs: Respirations even, regular, and unlabored on room air. Lungs CTA bilaterally, no rhonchi, no rales, no wheezing, and no accessory muscle usage. Abdominal: soft, nontender to palpation, no guarding, no appreciable organomegaly. Surgical incision to midline abdomen and healing stages with small area of scab/eschar in the center. No dehiscence, erythema, or drainage noted. Ext: ROM intact. No gross muscle atrophy, no edema, no contractures Neuro: Speech clear, face symmetrical and CN II-XII grossly intact with no noted focal neuro deficits Psych: Alert and oriented to person, place, time, and situation. Appropriate and pleasant affect. A total of 37 minutes of time were spent preparing this complex discharge summary. Pt was discharged on 12/02/23 at 5:07 PM. Patient was seen independently by Nurse Practitioner. This document was prepared using TMS dictation software. Please allow for errors in political scientist while rare they do occur. I reviewed the documentation as provided by the TERE above, who is the original author of this note. I agree with the documented assessment and plan, with the following changes: none Patient Condition at Discharge: Stable Plan - Discharge Summary New Discharge Prescriptions: New Cholestyramine (with Sugar) [Questran Packet] 4 gm PO ACHS 30 Days #120 packet Potassium Chloride [K-Tab ER] 20 meq PO DAILY 30 Days #30 tab Magnesium Oxide [Mag-Ox] 400 mg PO DAILY #30 tablet Continue Atorvastatin [Lipitor] 80 mg PO DAILY Donepezil [Aricept] 10 mg PO HS Multivitamins, Thera [Multivitamin (formulary)] 1 tab PO DAILY Oxybutynin Chloride [oxyBUTYnin chloride ER] 10 mg PO DAILY Sertraline [Zoloft] 50 mg PO DAILY Ondansetron Odt [Zofran ODT] 4 mg PO TID PRN PRN Reason: Nausea And Vomiting Imatinib Mesylate 400 mg PO DAILY Apixaban [Eliquis] 5 mg PO BID Pantoprazole [Protonix] 40 mg PO DAILY #30 tab amLODIPine [Norvasc] 5 mg PO DAILY Omeprazole 40 mg PO DAILY Mirtazapine [Mirtazapine Soluspan] 15 mg PO HS Discontinued Insulin Glargine,Hum.rec.anlog [Toujeo Solostar] 24 units SQ DAILY #0 Cholestyramine/Aspartame [Cholestyramine Light Powder] 4 gm PO DAILY PRN PRN Reason: Gi Upset INSULIN LISPRO (humaLOG) [humaLOG] 9 units SQ AC-TID Discharge Medication List Atorvastatin [Lipitor] 80 mg PO DAILY 04/14/20 [History] Donepezil [Aricept] 10 mg PO HS 04/14/20 [History] Multivitamins, Thera [Multivitamin (formulary)] 1 tab PO DAILY 04/14/20 [History] Oxybutynin Chloride [oxyBUTYnin chloride ER] 10 mg PO DAILY 04/14/20 [History] Sertraline [Zoloft] 50 mg PO DAILY 04/14/20 [History] Apixaban [Eliquis] 5 mg PO BID 11/09/23 [History] Imatinib Mesylate 400 mg PO DAILY 11/09/23 [History] Omeprazole 40 mg PO DAILY 11/09/23 [History] Ondansetron Odt [Zofran ODT] 4 mg PO TID PRN 11/09/23 [History] amLODIPine [Norvasc] 5 mg PO DAILY 11/09/23 [History] Pantoprazole [Protonix] 40 mg PO DAILY #30 tab 11/11/23 [Rx] Mirtazapine [Mirtazapine Soluspan] 15 mg PO HS 11/29/23 [History] Cholestyramine (with Sugar) [Questran Packet] 4 gm PO ACHS 30 Days #120 packet 12/02/23 [Rx] Magnesium Oxide [Mag-Ox] 400 mg PO DAILY #30 tablet 12/02/23 [Rx] Potassium Chloride [K-Tab ER] 20 meq PO DAILY 30 Days #30 tab 12/02/23 [Rx] Follow up Appointment(s)/Referral(s): Reuben Armendariz NPC [Nurse Practitioner] - 12/05/23 1:00 pm Martin Childress MD [STAFF PHYSICIAN] - 1 Week (please call ) Bonnie Barraza MD [Primary Care Provider] - 1-2 days (please call) [facility] [NON-STAFF] - 1-2 Days Ambulatory/Diagnostic Orders: Basic Metabolic Panel [LAB.AMB] Time Frame: 3 Days, Location: None Selected Magnesium [LAB.AMB] Location: None Selected Patient Instructions/Handouts: Dehydration (DC), Hypokalemia (DC), Chronic Diarrhea (DC), Hypomagnesemia (DC) Activity/Diet/Wound Care/Special Instructions: Activity: As tolerated. Take breaks as needed. Diet: Heart healthy and carb consistent diet. Avoid salts, or foods with hidden salts such as canned or boxed foods and frozen dinners. Extra salt makes your heart work harder and traps the fluid in your body for longer. Special Instructions: Take all of your medications as directed and remember to keep all of your doctor's appointments and follow-up as needed. At this time secondary to recurrent episodes of hypoglycemia and your overall reports of decreased oral intake since tumor resection and beginning chemotherapy, I am going to advise that you stop home insulin use at this time and simply continue to monitor your blood glucose levels closely and document these results and a daily log. You will need to bring these results with you to your next PCP appointment. Currently hemoglobin A1c is 6.7%. If your blood glucose levels begin to elevate, please call and notify your PCP immediately as they may have you resume your home insulin at a decreased dose. Thank you for allowing us to participate in your care, it was truly a pleasure h aving you for our patient!!! Discharge Disposition: HOME WITH HOME HEALTH SERVICES
== END 2023-12-02 18:06 | disposition home health service (06) | DRG 641 ==
LOC: EC 08:51 → 3SCARD 11:14 → 4SSUR 11-30 23:01
PROVIDERS: ADMIT Family Medicine; ATTEND Family Medicine
DX: E87.6 Hypokalemia (principal); I44.2 Atrioventricular block, complete; C49.A3 Gastrointestinal stromal tumor of small intestine; K52.1 Toxic gastroenteritis and colitis; C17.9 Malignant neoplasm of small intestine, unspecified; C78.7 Secondary malignant neoplasm of liver and intrahepatic bile duct; F03.A4 Unspecified dementia, mild, with anxiety; F03.A3 Unspecified dementia, mild, with mood disturbance; E11.649 Type 2 diabetes mellitus with hypoglycemia without coma; I77.810 Thoracic aortic ectasia; I48.0 Paroxysmal atrial fibrillation; Z79.4 Long term (current) use of insulin; K22.0 Achalasia of cardia; I10 Essential (primary) hypertension; F32.A Depression, unspecified; E87.8 Other disorders of electrolyte and fluid balance, not elsewhere classified; E83.42 Hypomagnesemia; E78.5 Hyperlipidemia, unspecified; T45.1X5A Adverse effect of antineoplastic and immunosuppressive drugs, initial encounter; Z96.652 Presence of left artificial knee joint; Z90.49 Acquired absence of other specified parts of digestive tract; Z95.0 Presence of cardiac pacemaker; Z85.46 Personal history of malignant neoplasm of prostate; Z92.3 Personal history of irradiation; Z79.899 Other long term (current) drug therapy; Z79.01 Long term (current) use of anticoagulants; Z87.891 Personal history of nicotine dependence; Z82.49 Family history of ischemic heart disease and other diseases of the circulatory system
CPT/HCPCS: 36415; 80048; 80053; 83735; 85025; 85027; 93005; 93970; 96365; 96366; 96367; 96368; 96375; 99291

== ENCOUNTER → 2023-12-23 | Outpatient (CLI) | payer MEDICARE ==
[2023-12-23 10:09] LABS: African American GFR (CKD) >90 (>60 ml/min/1.73 sqM); Blood Urea Nitrogen 15 mg/dL (9-20); Non-African American GFR(CKD) 80 (>60 ml/min/1.73 sqM)
--- NOTE | 2023-12-26 10:32 | CT ---
EXAMINATION TYPE: CT Chest Abd Pelvis w con CT DLP: 1186.5 mGycm, Automated exposure control for dose reduction was used. DATE OF EXAM: 12/23/2023 11:36 AM COMPARISON: 11/10/2023 CLINICAL INDICATION:Male, 83 years old with history of C49.A4 GASTROINTESTINAL STROMAL TUMOR OF LARGE INT; PHH, f/u liver/GI cancer hx of prostate cancer Technique: CT Chest Abd Pelvis w con; Multiple axial images were obtained. Two-dimensional coronal an d sagittal reconstructions were obtained. Contrast used:100 mL of Isovue 300 with IV Contrast, Oral contrast used: with Oral Contrast Findings: CHEST: LUNGS/ PLEURA: There are bilateral pleural effusions and associated consolidation in the right lung b ase. Minimal associated consolidation, appearance. Concern for airspace disease right lung base. Rachna sinai lungs are clear. AIRWAY: Patent and unremarkable. HEART: Size within normal limits. Moderate calcific coronary artery disease. MEDIASTINUM: No gross evidence of adenopathy. VASCULATURE: No aortic aneurysm. MUSCULOSKELETAL: No acute osseous abnormalities. SOFT TISSUES/LYMPH NODES: Unremarkable. LOWER NECK: No significant findings. ABDOMEN: ABDOMEN LIVER: Small cysts in the liver appear stable GALLBLADDER AND BILE DUCTS: Unremarkable. PANCREAS: Partially fatty replaced but otherwise unremarkable SPLEEN: Small with mid splenic cyst ADRENAL GLANDS: Unremarkable. KIDNEYS AND URETERS: No evidence of hydronephrosis or renal calculus. The ureters are unremarkable. PELVIS BLADDER: Unremarkable REPRODUCTIVE: Unremarkable. ABDOMEN & PELVIS STOMACH AND BOWEL: Stomach and duodenum are unremarkable. No evidence of bowel obstruction. PERITONEUM: No evidence of pneumoperitoneum or free fluid. VASCULATURE: No evidence of aortic aneurysm. MUSCULOSKELETAL: Osteoporotic L2 compression fracture. Degenerative disc disease. No aggressive bony lesion. LYMPH NODES: No gross evidence for lymphadenopathy. SOFT TISSUE/ABDOMINAL WALL: Unremarkable IMPRESSION: Moderate bilateral pleural effusions and atelectasis in the lung bases represent airspace disease/pne umkamran
== END | disposition home or self-care (01) ==
LOC: RADCTMAIN 09:30
PROVIDERS: ATTEND Internal Medicine
DX: J90 Pleural effusion, not elsewhere classified (principal); J98.11 Atelectasis; C49.A4 Gastrointestinal stromal tumor of large intestine; I82.729 Chronic embolism and thrombosis of deep veins of unspecified upper extremity; Z71.3 Dietary counseling and surveillance; Z85.46 Personal history of malignant neoplasm of prostate
CPT/HCPCS: 82565; 84520; 71260; 74177; 36415; Q9967

== ENCOUNTER → 2023-12-27 | Outpatient (CLI) | payer MEDICARE ==
--- NOTE | 2024-01-06 17:06 | CT ---
EXAMINATION TYPE: CT lumbar spine wo con CT DLP: 993 mGycm, Automated exposure control for dose reduction was used. DATE OF EXAM: 12/27/2023 4:18 PM COMPARISON: . 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 Soft tissue and bone windows in coronal and sagittal planes were obtained and reviewed. 3-D ref ormats of the bones were created on a separate workstation and submitted for review. Contrast used: mL of , (None, if empty). Oral contrast used: (None, if empty). FINDINGS: Alignment: There are 5 lumbar type vertebral bodies within normal AP alignment. No significant scoli osis. Bone: Superior endplate osteoporotic central compression deformity of L2 is present. Large bridging endplate osteophytes are present Discs: T12-L1: No spinal canal or neural foraminal stenosis is identified. L1-L2: Mild diffuse disc bulge. Vacuum disc phenomenon. No spinal canal or neural foraminal stenosis is identified. L2-L3: Vacuum disc phenomenon. Bilateral L2-L3 moderate neural foraminal stenosis from facet join t arthritis. No spinal canal or neural foraminal stenosis is identified. L3-L4: Mild diffuse disc bulge. No spinal canal or neural foraminal stenosis is identified. L4-L5: Mild diffuse disc bulge. Moderate facet joint osteophyte No spinal canal or neural foraminal s tenosis is identified. L5-S1: No spinal canal or neural foraminal stenosis is identified. Other: Proximal abdominal aortic aneurysm to 3.6 cm. IMPRESSION: 1. No evidence for spinal fracture. 2. Multilevel degenerative disc disease. Facet joint osteoarthritis. Bilateral L2-L3 moderate neural foraminal stenosis due to facet encroachment. 3. Proximal abdominal aortic aneurysm measuring 3.6 cm diameter.
== END | disposition home or self-care (01) ==
LOC: RADCTMAIN 15:58
PROVIDERS: ATTEND Physical Medicine & Rehabilitation
DX: M47.817 Spondylosis without myelopathy or radiculopathy, lumbosacral region (principal); M51.36 Other intervertebral disc degeneration, lumbar region; M99.73 Connective tissue and disc stenosis of intervertebral foramina of lumbar region; I71.40 Abdominal aortic aneurysm, without rupture, unspecified
CPT/HCPCS: 72131

== ENCOUNTER → 2024-03-31 | Outpatient (CLI) | payer MEDICARE ==
[2024-03-31 12:31] LABS: African American GFR (CKD) >90 (>60 ml/min/1.73 sqM); Blood Urea Nitrogen 17 mg/dL (9-20); Non-African American GFR(CKD) 79 (>60 ml/min/1.73 sqM)
--- NOTE | 2024-03-31 14:55 | CT ---
EXAMINATION TYPE: CT ChestAbdPelvis w con CT DLP: 811.70 mGycm, Automated exposure control for dose reduction was used. DATE OF EXAM: 03/31/2024 2:04 PM COMPARISON: 12/23/2023 CLINICAL INDICATION: Male, 83 years old with history of C49.A4 GASTROINTESTINAL STROMAL TUMOR OF LARG E INT; PHH, OBS FOR METS, HX OF LIVER/GI CANCER Technique: CT ChestAbdPelvis w con; Multiple axial images were obtained. Two-dimensional coronal and sagittal reconstructions were obtained. Contrast used:100 mL of Isovue 300 with IV Contrast, Oral contrast used: with Oral Contrast Findings: CHEST: LUNGS/ PLEURA: No focal consolidation, pneumothorax. Trace bilateral pleural effusions right greater than left. AIRWAY: Patent and unremarkable. HEART: Cardiomegaly is demonstrated.Atherosclerosis of the arterial vasculature. MEDIASTINUM: No gross evidence of adenopathy. VASCULATURE: No aortic aneurysm. Pulmonary trunk is dilated up to 37 mm. Cardiac conduction leads ar e present. MUSCULOSKELETAL: No acute osseous abnormalities. SOFT TISSUES/LYMPH NODES: Unremarkable. LOWER NECK: No significant findings. ABDOMEN: ABDOMEN LIVER: Scattered hypodense areas throughout the liver and right hepatic lobe not significantly change d from prior 12/23/2023 or 11/10/2023 findings favor cysts GALLBLADDER AND BILE DUCTS: Gallstones layering the gallbladder lumen. PANCREAS: Unremarkable. SPLEEN: Similar morphology to the spleen with area of nonenhancement possibly representing a cyst is again fluid attenuation. ADRENAL GLANDS: Unremarkable. KIDNEYS AND URETERS: No evidence of hydronephrosis or renal calculus. The ureters are unremarkable. PELVIS BLADDER: Unremarkable REPRODUCTIVE: Brachytherapy beads within the prostate gland. ABDOMEN & PELVIS STOMACH AND BOWEL: The pylorus of the stomach appears thickened measuring up to 27 mm in length and 9 mm in thickness. No evidence of bowel obstruction. Second portion duodenal diverticulum. Scattered c olonic diverticula. There is some wall thickening of the sigmoid colon. PERITONEUM/RETROPERITONEUM: No evidence of pneumoperitoneum or free fluid. VASCULATURE: No evidence of aortic aneurysm. MUSCULOSKELETAL: No acute osseous abnormalities, moderate degeneration changes throughout the spine. Compression deformity of L2 vertebral body with 2550% height loss. Findings are mildly progressed fro m prior. LYMPH NODES: No gross evidence for lymphadenopathy. SOFT TISSUE/ABDOMINAL WALL: Unremarkable IMPRESSION: 1. Wall thickening of the sigmoid colon with multiple diverticuli correlate for colitis. Correlate w ith history of location of tumor.No additional evidence for lymphadenopathy or evidence for recurrenc e. 2. 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 3. Mild progression of L2 vertebral body compression fracture compared to 12/23/2023. No significant r etropulsion. Pulmonary hypertension. 4. Similar small bilateral pleural effusions. 5. Cholelithiasis.
== END | disposition home or self-care (01) ==
LOC: RADCTMAIN 11:40
PROVIDERS: ATTEND Internal Medicine
DX: C49.A4 Gastrointestinal stromal tumor of large intestine
CPT/HCPCS: 36415; 71260; 74177; 82565; 84520